=== PATIENT | female | born 1975 | race Caucasian/White ===

== ENCOUNTER 2020-09-16 10:46 | Outpatient (REF) | payer MEDICAID, SELFPAY ==
--- NOTE | ~2020-09-16 | MM_ITS ---
EXAMINATION: MM SCREENING DIGITAL BREAST TOMOSYNTHESIS, BILATERAL CLINICAL INFORMATION: Screening. Asymptomatic. The lifetime risk of breast cancer based on the Tyrer-Cuzick Model is 11%. COMPARISON: Mammography: 10/06/2017, 09/29/2016, 03/25/2016, 03/17/2016 (baseline); bilateral targeted breast ultrasound 03/25/2016 TECHNIQUE: Digital breast tomosynthesis is performed in both the craniocaudal and mediolateral oblique views along with computer-aided detection (CAD). Synthesized 2D images are generated from the tomosynthesis. FINDINGS: There are scattered areas of fibroglandular density (ACR BI-RADS breast composition Category b). There are no significant masses, abnormal calcifications, or other abnormalities. There are scattered asymmetries similar to decreased from prior exams. There is no developing density or interval mass or architectural abnormality. Scattered bilateral calcifications are again seen, most are dermal. No significant changes from prior studies. MM/MM tomosynthesis screening BI IMPRESSION: No mammographic evidence of malignancy. ASSESSMENT: BI-RADS 2: Benign RECOMMENDATION: Routine annual mammography screening. This patient's information was entered into a reminder system with a target due date for their next mammogram.
== END 2020-09-16 10:47 | disposition home or self-care (01) ==
LOC: HO.MAMMO 10:46
PROVIDERS: Visit Provider Family Medicine
DX: Z12.31 Encounter for screening mammogram for malignant neoplasm of breast (principal)
CPT/HCPCS: 77063; 77067

== ENCOUNTER 2020-11-20 10:39 | Outpatient (REF) | payer MEDICAID, SELFPAY ==
--- NOTE | 2020-11-20 10:42 | EMG_ITS ---
This is a 45-year-old generally healthy woman, who has left wrist pain for a few months. She is taking ibuprofen for it. No other medical problems. PHYSICAL EXAMINATION: NEUROLOGICAL EXAMINATION: Cranial nerves are normal. Muscle tone and strength are normal. Deep tendon reflexes symmetrical. No Tinel or Phalen sign. IMPRESSION: Rule out carpal tunnel syndrome. Nerve conduction EMG study: Normal electrodiagnostic study of the left upper extremity with no evidence of carpal tunnel syndrome or nerve entrapment. Normal EMG of the left C5-T1 innervated muscles. MD SCOTTY Rangel/NATO / [id number]
== END 2020-11-20 10:40 | disposition home or self-care (01) ==
LOC: HO.NEURO 10:39
PROVIDERS: Visit Provider Nurse Practitioner
DX: G56.02 Carpal tunnel syndrome, left upper limb (principal)
CPT/HCPCS: 95885; 95910

== ENCOUNTER 2020-12-17 11:37 | Outpatient (REF) | payer MEDICAID, SELFPAY ==
--- NOTE | ~2020-12-17 | XR_ITS ---
EXAMINATION: XR LUMBOSACRAL SPINE WITH OBLIQUES CLINICAL INFORMATION: Lower back pain. COMPARISON: Lumbar spine radiographs dated 06/18/2014 TECHNIQUE: AP, lateral, coned-down, and bilateral oblique views of the lumbosacral spine. FINDINGS: Normal vertebral body alignment. The lumbar lordosis is maintained. No acute fracture or subluxation. No loss of vertebral body height. Mild multilevel loss of intervertebral disc height with tiny anterior endplate osteophytes, slightly progressed when compared to the prior examination. Mild bilateral facet arthropathy at L5-S1, new when compared to the prior examination. Phleboliths within the pelvis. XR/XR lumbar spine 4V min IMPRESSION: Mild multilevel degenerative disc disease with bilateral facet arthropathy at L5-S1, new/increased when compared to the prior examination.
== END 2020-12-17 11:38 | disposition home or self-care (01) ==
LOC: HO.XRAY 11:37
PROVIDERS: Absent Provider Family Medicine; PCP Family Medicine; Visit Provider Emergency Medicine
DX: M54.5 Low back pain (principal)
CPT/HCPCS: 72110

== ENCOUNTER 2022-03-17 13:18 | Outpatient (REF) | payer MEDICAID, SELFPAY ==
[2022-03-17 13:26] LABS: MANUAL DIFF FLAG NO
[2022-03-17 14:17] LABS: Basophils Percent Auto 0.4 % (0-2); Eosinophils Absolute Auto 0.1 X10*3/uL (0.0-0.4); Eosinophils Percent Auto 0.7 % (0-4); Hematocrit 39.5 % (37.0-47.0); Hemoglobin 13.1 g/dl (12.0-16.0); Imm Gran Abs Auto 0.01 X10*3/uL (0.00-0.03); Imm Gran Pct Auto 0.1 % (0.0-0.4); Lymphocytes Absolute Auto 1.9 X10*3/uL (1.2-4.9); Lymphocytes Percent Auto 29.1 % (20-40); Mean Corpuscular HGB Conc 33.2 g/dl (31.0-35.0); Mean Corpuscular Hemoglobin 31.5 pg (27.0-33.0); Mean Platelet Volume 10.7 fL (9.4-12.3); Monocytes Absolute Auto 0.5 X10*3/uL (0.1-1.2); Monocytes Percent Auto 6.7 % (2-11); Neutrophils Absolute Auto 4.2 x10*3/uL (2.0-8.3); Platelet Count 258 X10*3/uL (160-400); Red Blood Count 4.16 X10*6/uL (4.20-5.50); Red Cell Distribution Width 12.8 % (11.0-16.0); White Blood Count 6.7 X10*3/uL (4.8-10.8)
[2022-03-17 14:36] LABS: Alanine Aminotransferase 19 U/L (0-31); Albumin Level 4.4 g/dL (3.5-5.0); Alkaline Phosphatase 79 U/L (39-117); Anion Gap 14 (12-20); Aspartate Amino Transferase 22 U/L (5-31); Bilirubin Total 0.2 mg/dL (0.0-1.0); Blood Urea Nitrogen 9 mg/dL (9-16); Calcium 9.8 mg/dL (8.4-10.2); Carbon Dioxide 25 mmol/L (22-29); Chloride 105 mmol/L (96-108); Estimated Glomerular Filt Rate > 60; Glucose Random 87 mg/dL (60-115); Potassium 4.7 mmol/L (3.3-5.1); Sodium 139 mmol/L (135-145); Total Protein 7.6 g/dL (6.5-8.0)
== END 2022-03-17 13:19 | disposition home or self-care (01) ==
LOC: HO.LAB 13:18
PROVIDERS: PCP Family Medicine; Visit Provider Nurse Practitioner
DX: Z01.818 Encounter for other preprocedural examination (principal); K21.9 Gastro-esophageal reflux disease without esophagitis; K64.9 Unspecified hemorrhoids; F41.8 Other specified anxiety disorders; K58.9 Irritable bowel syndrome, unspecified; J30.9 Allergic rhinitis, unspecified; F17.200 Nicotine dependence, unspecified, uncomplicated
CPT/HCPCS: 36415; 80053; 85025; 99202

== ENCOUNTER 2022-10-30 12:50 | Day surgery (SDC) | payer MEDICAID, SELFPAY ==
--- NOTE | 2022-10-29 10:39 | HO.ANESPROP2 ---
Documented by User: Pily Patton NP 10/29/22 10:39 HPI - Anesthesia Eval Consult details Narrative: 47yo F for Colonoscopy PMFSH Active Problems Active Problems: All Active Problems (Updated 10/28/22 @ 08:08 by Coretta Vargas, RN) Asthma (Acute) Allergic rhinitis (Acute) Smoker (Acute) GERD (gastroesophageal reflux disease) (Acute) IBS (irritable bowel syndrome) (Acute) Migraines (Acute) Cervical dysplasia (Acute) Chronic low back pain (Acute) Depression with anxiety (Acute) Carpal tunnel syndrome of left wrist (Acute) Hemorrhoids (Acute) Pre-op examination (Acute) Past Medical History Medical History (Updated 10/28/22 @ 08:08 by Coretta Vargas RN) Abnormal Pap smear of cervix Anxiety Back pain Chronic gastritis Depression GERD (gastroesophageal reflux disease) IBS (irritable bowel syndrome) Vitamin D deficiency Family History Family History Maternal Grandmother Liver cancer Maternal Uncle Throat cancer Surgical History Surgical History (Updated 10/28/22 @ 08:08 by Coretta Vargas RN) H/O hemorrhoidectomy Social History Social History Alcohol intake: never Patient Tobacco Use Status: Current everyday Tobacco user Tobacco use type: Cigarette Cigarette Packs Per Day: 5 Use of substances other than those prescribed or required for medical reasons: No Are you DNR?: No Advance Directives: No Advance Directives Information Provided: Yes Meds Allergies Allergy/AdvReac Type Severity Reaction Status Date / Time promethazine [From PHENERGAN] Allergy Severe FACIAL Verified 03/17/22 12:15 SWELLING metoclopramide Allergy Unknown neuro Verified 03/17/22 12:15 symptoms-face prochlorperazine Allergy Unknown memory loss Verified 03/17/22 12:15 chlorpheniramine [Phenagil] AdvReac Unknown upset Verified 03/17/22 12:15 stomach Home Medications Medication Instructions Recorded Confirmed Last Taken Type albuterol sulfate 90 mcg/actuation 2 puff inhalation Q4-6H PRN 03/17/22 10/28/22 Unknown History aerosol inhaler (ProAir HFA) Shortness Of Breath ascorbate calcium (vitamin C) 500 500 mg PO DAILY 03/17/22 10/28/22 10/29/22 History mg tablet blood pressure test kit-large #1 ea 03/17/22 Unknown History cholecalciferol (vitamin D3) 25 25 mcg PO DAILY 03/17/22 10/28/22 10/29/22 History mcg (1,000 unit) capsule (Vitamin D3) ferrous sulfate 325 mg (65 mg 325 mg PO BID 03/17/22 10/28/22 10/29/22 History iron) tablet (FeroSul) folic acid 800 mcg tablet 0.8 mg PO DAILY 03/17/22 10/28/22 10/29/22 History ibuprofen 600 mg tablet 600 mg PO TID low back pain 03/17/22 10/30/22 10/01/22 History omeprazole 20 mg capsule,delayed 20 mg PO DAILY PRN Acid Reflux 03/17/22 10/28/22 10/29/22 History release Exam Exam Date and Time: October 29, 2022 103 Assessment and Plan Assessment Anesthesia Assessment: Chart Reviewed Documented by User: Elizabeth Sanders MD 10/30/22 15:00 [facility] Past Medical History Medical History (Updated 10/28/22 @ 08:08 by Coretta Vargas RN) Abnormal Pap smear of cervix Anxiety Back pain Chronic gastritis Depression GERD (gastroesophageal reflux disease) IBS (irritable bowel syndrome) Vitamin D deficiency Family History Family History Maternal Grandmother Liver cancer Maternal Uncle Throat cancer Family history of problems with anesthesia: No Surgical History Surgical History (Updated 10/28/22 @ 08:08 by Coretta Vargas, RN) H/O hemorrhoidectomy History of Problems with Anesthesia: No Social History Social History Alcohol intake: never Patient Tobacco Use Status: Current everyday Tobacco user Tobacco use type: Cigarette Cigarette Packs Per Day: 5 Use of substances other than those prescribed or required for medical reasons: No Are you DNR?: No Advance Directives: No Advance Directives Information Provided: Yes Meds Allergies Allergy/AdvReac Type Severity Reaction Status Date / Time promethazine [From PHENERGAN] Allergy Severe FACIAL Verified 03/17/22 12:15 SWELLING metoclopramide Allergy Unknown neuro Verified 03/17/22 12:15 symptoms-face prochlorperazine Allergy Unknown memory loss Verified 03/17/22 12:15 chlorpheniramine [Phenagil] AdvReac Unknown upset Verified 03/17/22 12:15 stomach Home Medications Medication Instructions Recorded Confirmed Last Taken Type albuterol sulfate 90 mcg/actuation 2 puff inhalation Q4-6H PRN 03/17/22 10/28/22 Unknown History aerosol inhaler (ProAir HFA) Shortness Of Breath ascorbate calcium (vitamin C) 500 500 mg PO DAILY 03/17/22 10/28/22 10/29/22 History mg tablet blood pressure test kit-large #1 ea 03/17/22 Unknown History cholecalciferol (vitamin D3) 25 25 mcg PO DAILY 03/17/22 10/28/22 10/29/22 History mcg (1,000 unit) capsule (Vitamin D3) ferrous sulfate 325 mg (65 mg 325 mg PO BID 03/17/22 10/28/22 10/29/22 History iron) tablet (FeroSul) folic acid 800 mcg tablet 0.8 mg PO DAILY 03/17/22 10/28/22 10/29/22 History ibuprofen 600 mg tablet 600 mg PO TID low back pain 03/17/22 10/30/22 10/01/22 History omeprazole 20 mg capsule,delayed 20 mg PO DAILY PRN Acid Reflux 03/17/22 10/28/22 10/29/22 History release Exam Airway Mallampati Class: II TM Dist: >3cm Neck ROM: Full Loose/Missing/Broken Teeth: No Heart: rr Lungs: cta Assessment and Plan Final Anesthetic Review Family History of Problems with Anesthesia: No History of Problems with Anesthesia: No NPO: Yes ASA Class: II Final Preanesthetic Review: No Changes in Pt Med Stat, Meds/Allgs Chart Reviewed, Consent Obtained/Reviewed and Anes Risks/Benef Reviewed Patient Risk: Low Procedure Risk: Low Anesthetic Plan Anesthetic Plan: MAC: Disposition: Standard PACU
[2022-10-30 13:45] VITALS: BP 127/68; PULSE 80; RESP 16; TEMP 36.6; O2SAT 100; BMI 27.4
[2022-10-30] MEDS: Lactated Ringers 1,000 ML 100 ML IVCONT (14:08)
[2022-10-30 14:12] LABS: UPreg QC Valid YES; Urine Pregnancy NEGATIVE (NEGATIVE)
--- NOTE | 2022-10-30 14:26 | MHC.SHP ---
Pre-Procedural Eval Section A Date of Service: 10/30/22 The patient is an INPATIENT: No The History & Physical has been completed within 30 days and I have reviewed it.: No Section B Chief Complaint: screening Relevant Family History (Specify if Yes): Yes Relevant Social History: Tobacco Use Present Medications: see Short Stay Collaborative assessment Medical History: Significant History (Asthma Allergic rhinitis Smoker GERD IBS MIGRAINES Cervical dysplasia Chronic low back pain Depression/anxiety Carpal tunnel syndrome left wrist) History of Previous Operations: Relevant previous surgery/procedure and date(s) (Hemorrhoidectomy EGD) Allergies: Allergies Allergy/AdvReac Type Severity Reaction Status Date / Time promethazine [From PHENERGAN] Allergy Severe FACIAL Verified 03/17/22 12:15 SWELLING metoclopramide Allergy Unknown neuro Verified 03/17/22 12:15 symptoms-face prochlorperazine Allergy Unknown memory loss Verified 03/17/22 12:15 chlorpheniramine [Phenagil] AdvReac Unknown upset Verified 03/17/22 12:15 stomach Review of Systems Sugical H&P ROS: Negative: Constitution, Cardiovascular, Respiratory and Gastrointestinal Exam Surgical H&P Exam: Normal: Heart, Normal: Lungs, Normal: Extremities and Normal: Abdomen Plan Diagnosis/Plan: Unchanged I have reviewed the history and physical and performed a pertinent physical examination on my patient. No changes have occurred unless specified. Time Spent With Patient Time: Total time managing care of this patient today ____ minutes.
--- NOTE | 2022-10-30 15:19 | W.PM.OPN ---
Operative Note Operative Note Date of Service: 10/30/22 Narrative: COLONOSCOPY TILL CECUM WITH SNARE POLYPECTOMY AND SUBMUCOSAL INJECTION Pre-op diagnosis: colon cancer screening Post-op diagnosis:? colon polyp, diverticulosis, hemorrhoids Endoscopist:? Coleman Juarez MD Anesthesia:?MAC Consent: Indications for the procedure and potential complications of bleeding, perforation, reaction to medications and missed diagnosis were discussed with the patient and informed consent was obtained. Instrument: Olympus PCF H 190 L variable stiffness pediatric colonoscope Monitoring: Vital signs and clinical assessment, intermittent blood pressure monitoring, continuous EKG monitoring, Pulse oximetry and Carbon Dioxide monitoring were done throughout the procedure. Please see anesthesia flowsheet. Colon withdrawl time was 23 minutes. Procedure: The patient was placed in the left lateral decubitis position and pre-procedure medications were administered. After a digital rectal examination of the ano-rectum, the video colonoscope was inserted into the rectum and advanced through the colon to the cecum. The colonoscope was slowly withdrawn in a retrograde panoramic fashion and the colon mucosa was carefully examined including a retroflexed view of the rectum. Findings and interventions are described below. Procedure Difficulty: Without difficulty Findings: Terminal Ileum: Not evaluated Cecum: Normal Ascending Colon: Normal Transverse Colon: Normal Descending Colon: Normal Sigmoid Colon: A 2.5 cms pedunculated polyp at 22 cms. Polyp was removed with hot snare and marked by Noemí ink. Mild diverticulosis Rectum: Normal Ano-rectum: Small internal hemorrhoids Colon preparation: Excellent Impression and Post Procedure Diagnosis: Colonoscopy Findings: One large polyp removed Mild diverticulosis seen in the sigmoid colon Small hemorrhoids on retroflexed exam. Plan: Await pathology results Patient has an appointment on 11/10/22 in the GI Clinic with Fanta Osuna NP. Repeat Colonoscopy interval based on path results - in 3 years if polyps are adenomatous and 10 years if polyps are hyperplastic. If path on sigmoid colon polyp reveals advanced histology, then flex sig with colon prep in 3-4 months Above findings were reviewed with the patient and colon polyps and diverticulosis handouts were given in the discharge area BIOPSIES SHOWED: Colon, sigmoid at 22 cm, polyp:? Tubular adenoma, completely excised; negative for high-grade dysplasia and carcinoma.
[2022-10-30 16:18] VITALS: BP 86/50; PULSE 71; RESP 18; TEMP 36.6; O2SAT 98
[2022-10-30 16:33] VITALS: BP 94/38; PULSE 63; RESP 18; O2SAT 98
[2022-10-30 16:46] VITALS: BP 105/75; PULSE 75; RESP 18; O2SAT 98
[2022-10-30 16:51] VITALS: TEMP 36.6
== END 2022-10-30 17:40 | disposition home or self-care (01) ==
PROVIDERS: Nurse Practitioner; PCP Family Medicine; Visit Provider Internal Medicine Gastroenterology
PROC: 0DJD8ZZ Inspection of Lower Intestinal Tract, Via Natural or Artificial Opening Endoscopic (ICD-10-PCS; CPT 45378; principal; 2022-10-30 14:30)
DX: Z12.11 Encounter for screening for malignant neoplasm of colon (principal); D12.5 Benign neoplasm of sigmoid colon; K57.30 Diverticulosis of large intestine without perforation or abscess without bleeding; K64.8 Other hemorrhoids; K58.9 Irritable bowel syndrome, unspecified; K21.9 Gastro-esophageal reflux disease without esophagitis; J45.909 Unspecified asthma, uncomplicated; F41.8 Other specified anxiety disorders; Z79.899 Other long term (current) drug therapy; Z88.8 Allergy status to other drugs, medicaments and biological substances; F17.210 Nicotine dependence, cigarettes, uncomplicated
CPT/HCPCS: 45385; 45381; 81025; 88305

== ENCOUNTER → 2022-10-30 12:50 | Outpatient (BNV) | payer MEDICAID, SELFPAY | PROVIDERS: PCP Family Medicine; Visit Provider Internal Medicine Gastroenterology | DX: Z12.11 Encounter for screening for malignant neoplasm of colon (principal); K57.30 Diverticulosis of large intestine without perforation or abscess without bleeding; K64.8 Other hemorrhoids; D12.5 Benign neoplasm of sigmoid colon | CPT/HCPCS: 45381; 45385 ==

== ENCOUNTER 2022-11-10 10:51 | Outpatient (AMB) | payer MEDICAID, SELFPAY ==
--- NOTE | 2022-11-10 11:00 | A.OFFVIS_ITS ---
Intake Vital Signs 11/10/22 11:16 Height 5 ft 1 in Weight 130 lb 1.164 oz BMI 24.6 BP 118/80 Blood Pressure Location Lt brachial Position Sitting Pulse 94 Intake Visit Reasons: S/p colon- Larry Intake Note: Lucas presents in the office as a follow up colonoscopy. CC: Just here for the results of the procedure. 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 No bowel or upper GI problems except her usual IBS and GERD. There are no prior problems with anesthesia or sedation. Her asthma is well controlled and she denies any cardiac problems. No ID problems. No known FHX of CRC or polyps. (2) Hemorrhoids: ?Code(s): K64.9 - Unspecified hemorrhoids (3) Carpal tunnel syndrome of left wrist: ?Code(s): G56.02 - Carpal tunnel syndrome, left upper limb (4) Depression with anxiety: ?Code(s): F41.8 - Other specified anxiety disorders (5) Chronic low back pain: ?Code(s): M54.50 - Low back pain, unspecified; G89.29 - Other chronic pain (6) Cervical dysplasia: ?Code(s): N87.9 - Dysplasia of cervix uteri, unspecified (7) Migraines: ?Code(s): G43.909 - Migraine, unspecified, not intractable, without status migrainosus (8) IBS (irritable bowel syndrome): ?Code(s): K58.9 - Irritable bowel syndrome without diarrhea (9) Smoker: ?Code(s): F17.200 - Nicotine dependence, unspecified, uncomplicated (10) Allergic rhinitis: ?Code(s): J30.9 - Allergic rhinitis, unspecified (11) Asthma: ?Code(s): J45.909 - Unspecified asthma, uncomplicated (12) GERD (gastroesophageal reflux disease): ?Code(s): K21.9 - Gastro-esophageal reflux disease without esophagitis ? ? ? Orders: Orders Comprehensive Met. Panel 03/17/22 Z01.818 - Encounte r for other prepro cedural examinatio n ? Complete Blood Cou nt Auto Diff 03/17/22 Z01.818 - Encounte r for other prepro cedural examinatio n ? Medications: New peg 3350-electroly genoveva 236-22.74-6.74 -5.86 gram (Golyt deedee) ?? until feca l effluent is jarrett r; do not exceed a total volume of 2 ,000 mL 240 mL? PO Q10M 1 day 4,000 mL 0RF Z12.11 - Encounter for screening for malignant neoplas m of colon LABS not obtained COLONOSCOPY 11/02/22 Findings: Terminal Ileum: Not evaluated Cecum:? Normal Ascending Colon:? Normal Transverse Colon:? Normal Descending Colon:? Normal Sigmoid Colon:? A 2.5 cms pedunculated polyp at 22 cms. Polyp was removed with hot snare and marked by Noemí ink. Mild diverticulosis Rectum:? Normal Ano-rectum:? Small internal hemorrhoids Colon preparation: Excellent ? Impression and Post Procedure Diagnosis: Colonoscopy Findings: One large polyp removed Mild diverticulosis seen in the sigmoid colon Small hemorrhoids on retroflexed exam. Plan: Await pathology results Patient has an appointment on 11/10/22 in the GI Clinic with? Fanta Osuna NP. Repeat Colonoscopy interval based on path results - in 3 years if polyps are adenomatous and 10 years if polyps are hyperplastic.? If path on sigmoid colon polyp reveals advanced histology, then flex sig with colon prep in 3-4 months BIOPSY Received: 11/02/22 Diagnosis Colon, sigmoid at 22 cm, polyp:? Tubular adenoma, completely excised; negative for high-grade dysplasia and carcinoma. TODAY'S VISIT She is agreeable to the 3 year follow up. The procedure was well tolerated. The results were explained and the patient is agreeable to the follow-up interval as stated. The bowel pattern has returned to normal. Education was provided to tell any 1st degree relatives about their findings to be sure that they are screened by age 45. Educated that they will be put on a recall list when it is time for their repeat scope but should they move out of state or away from the hospital they will need to remember along with their primary to repeat the procedure in a timely fashion to avoid any adverse complications. prn [facility] Medical History (Updated 11/20/22 @ 16:38 by OKSANA Peterson) Abnormal Pap smear of cervix Anxiety Back pain Chronic gastritis Depression GERD (gastroesophageal reflux disease) IBS (irritable bowel syndrome) Vitamin D deficiency Surgical History (Updated 11/10/22 @ 11:16 by ANGELINA Hyde) H/O hemorrhoidectomy History of esophagogastroduodenoscopy (EGD) Hx of colonoscopy Family History Maternal Grandmother Liver cancer Maternal Uncle Throat cancer Social History Alcohol intake: never Patient Tobacco Use Status: Current everyday Tobacco user Tobacco use type: Cigarette Cigarette Packs Per Day: 5 Review of Systems Const Denies fatigue, Denies fever(s), Denies night sweats, Denies poor appetite and Denies weight loss ENT Reports Normal hearing present, Denies dental pain, Denies dysphagia, Denies hearing loss, Denies mouth pain, Denies odynophagia, Denies throat swelling, Denies tongue swelling and Reports other (Dentition adequate) Card Reports no additional complaints Resp Reports no additional complaints GI Denies abdominal pain, Denies melena, Denies bloating, Denies hematochezia, Denies constipation, Denies GI cramping, Denies dysphagia, Denies excessive flatus, Denies early satiety, Denies heartburn, Denies diarrhea, Denies nausea, Denies odynophagia, Denies vomiting and Denies hematemesis Skin/Breast Denies pruritus, Denies lesions, Denies rash and Denies jaundice Neuro Reports Normal hearing present and Denies Abnormal speech present Endo Denies fatigue Aller/Immun Denies throat swelling and Denies tongue swelling Physical Exam Vital Signs: Last Vital Signs Pulse 94 11/10/22 11:16 BP 118/80 11/10/22 11:16 BMI result Body Mass Index 24.6 Const General: cooperative, no acute distress, well developed and well groomed Nutritional Appearance: average body habitus and well nourished Orientation/consciousness: oriented to person, oriented to place and oriented to time Limitations: No language barrier HEENT Head: Yes normocephalic and Yes atraumatic Eyes General: appearance normal, both eyes and all related structures Pupils: Equal, round and reactive pupils present Neck Neck: Yes normal visual inspection and Yes no lymphadenopathy Thyroid: Thyroid normal Resp Effort & Inspection: normal respiratory effort and able to speak in complete sentences Auscultation: clear to auscultation bilaterally Cardio Rate: regular rate Rhythm: regular rhythm Heart sounds: Normal, physiologic split S2 sound present Peripheral pulses: radial pulses present and posterior tibial pulses present GI Inspection: No distended and No Abdominal panniculus present Palpation (GI): Soft to palpation, nontender, no guarding, not rigid and No hepatosplenomegaly present Percussion: Yes normal to percussion Auscultation: normal bowel sounds Rectal Exam - Female: deferred Skin General skin exam: no rashes or lesions noted, turgor normal, skin not dry, no jaundice, No spider nevi and no striae Rashes: no rashes Nails: normal Neuro General: oriented to person, oriented to place and oriented to time Cranial nerves: Yes Equal, round and reactive pupils present and Yes Normal hearing present Speech: No Abnormal speech present Extrem General: Yes normal to inspection, No clubbing, No cyanosis and No edema Psych Appearance: grossly normal and well kempt Mental Status: mental status grossly normal Speech and movement: Normal speech and movement present Affect: normal affect Attitude: cooperative Thought process: Normal thought process present and not confabulating Thought content: Normal thought content present Insight: Fair insight present (Psych) Judgement: Fair judgement present (Psych) Assessment & Plan Assessment & Plan (1) Tubular adenoma of colon: Comment: 2022 scope equals TA repeat in 3 years Code(s): D12.6 - Benign neoplasm of colon, unspecified Plan: She is agreeable to the 3 year follow up. The procedure was well tolerated. The results were explained and the patient is agreeable to the follow-up interval as stated. The bowel pattern has returned to normal. Education was provided to tell any 1st degree relatives about their findings to be sure that they are screened by age 45. Educated that they will be put on a recall list when it is time for their repeat scope but should they move out of state or away from the hospital they will need to remember along with their primary to repeat the procedure in a timely fashion to avoid any adverse complications. prn (2) GERD (gastroesophageal reflux disease): Code(s): K21.9 - Gastro-esophageal reflux disease without esophagitis (3) IBS (irritable bowel syndrome): Code(s): K58.9 - Irritable bowel syndrome without diarrhea Coding Level of Care Code Est Pt Level 3 (23984) Diagnoses Tubular adenoma of colon D12.6 GERD (gastroesophageal reflux disease) K21.9 IBS (irritable bowel syndrome) K58.9
[2022-11-10 11:16] VITALS: BP 118/80; PULSE 94; BMI 24.6
== END 2022-11-10 11:53 | disposition home or self-care (01) ==
PROVIDERS: PCP Family Medicine; Visit Provider Nurse Practitioner
DX: D12.6 Benign neoplasm of colon, unspecified (principal); K21.9 Gastro-esophageal reflux disease without esophagitis; K58.9 Irritable bowel syndrome, unspecified
CPT/HCPCS: 99213

== ENCOUNTER → 2022-11-10 10:51 | Outpatient (BNVA) | payer MEDICAID, SELFPAY | PROVIDERS: PCP Family Medicine; Visit Provider Nurse Practitioner | DX: D12.5 Benign neoplasm of sigmoid colon (principal); K21.9 Gastro-esophageal reflux disease without esophagitis; K58.9 Irritable bowel syndrome, unspecified; Z98.890 Other specified postprocedural states | CPT/HCPCS: 99213 ==

== ENCOUNTER 2024-09-26 10:44 | Outpatient (REF) | payer MEDICAID, SELFPAY ==
[2024-09-26 11:53] LABS: MANUAL DIFF FLAG NO
[2024-09-26 12:23] LABS: Basophils Percent Auto 0.6 % (0-2); Eosinophils Percent Auto 0.6 % (0-4); Hematocrit 36.3 % (37.0-47.0); Hemoglobin 11.7 g/dl (12.0-16.0); Imm Gran Abs Auto 0.02 X10*3/uL (0.00-0.03); Imm Gran Pct Auto 0.4 % (0.0-0.4); Lymphocytes Absolute Auto 1.5 X10*3/uL (1.2-4.9); Lymphocytes Percent Auto 29.9 % (20-40); Mean Corpuscular HGB Conc 32.2 g/dl (31.0-35.0); Mean Corpuscular Hemoglobin 28.5 pg (27.0-33.0); Mean Corpuscular Volume 88.5 fL (80.0-98.0); Mean Platelet Volume 11.2 fL (9.4-12.3); Monocytes Absolute Auto 0.4 X10*3/uL (0.1-1.2); Monocytes Percent Auto 7.8 % (2-11); Neutrophils Absolute Auto 3.1 x10*3/uL (2.0-8.3); Neutrophils Percent Auto 60.7 % (45-73); Platelet Count 259 X10*3/uL (160-400); Red Cell Distribution Width 15.4 % (11.0-16.0); White Blood Count 5.1 X10*3/uL (4.8-10.8)
[2024-09-26 12:48] LABS: Alanine Aminotransferase 22 U/L (0-31); Albumin Level 4.4 g/dL (3.5-5.0); Alkaline Phosphatase 70 U/L (39-117); Anion Gap 11 (12-20); Aspartate Amino Transferase 28 U/L (5-31); Bilirubin Total 0.2 mg/dL (0.0-1.0); Blood Urea Nitrogen 12 mg/dL (9-16); Calcium 9.4 mg/dL (8.4-10.2); Carbon Dioxide 24 mmol/L (22-29); Chloride 107 mmol/L (96-108); Estimated Glomerular Filt Rate > 60; Glucose Random 88 mg/dL (60-115); Sodium 138 mmol/L (135-145); Total Protein 7.6 g/dL (6.5-8.0)
== END 2024-09-26 10:45 | disposition home or self-care (01) ==
LOC: HO.LAB 10:44
PROVIDERS: PCP Family Medicine; Visit Provider Nurse Practitioner
DX: K21.9 Gastro-esophageal reflux disease without esophagitis (principal); R10.10 Upper abdominal pain, unspecified; K59.00 Constipation, unspecified
CPT/HCPCS: 36415; 80053; 85025; 99212

== ENCOUNTER 2024-09-26 10:44 | Outpatient (AMB) | payer MEDICAID, SELFPAY ==
--- NOTE | 2024-09-26 10:48 | A.OFFVIS_ITS ---
Vital Signs 09/26/24 10:59 Height 5 ft 1 in Weight 121 lb 4.068 oz BMI 22.9 BP 134/82 Blood Pressure Location Lt brachial Position Sitting Pulse 89 Intake Visit Reasons: gerd Intake Note: Lucas presents in the office for GERD. CC: She states that she is having burning in her stomach. She states that she has had constipation but now she has a BM every two days. Freezer Person Required: No Allergies promethazine [From [facility]] Allergy (Severe, Verified 09/26/24 10:59) FACIAL SWELLING metoclopramide Allergy (Unknown, Verified 09/26/24 10:59) neuro symptoms-face prochlorperazine Allergy (Unknown, Verified 09/26/24 10:59) memory loss chlorpheniramine [Phenagil] Adverse Reaction (Unknown, Verified 09/26/24 10:59) upset stomach HPI HPI gerd: Details: 49-year-old female seen in the past only for screening colonoscopy here for initial evaluation of GERD. PMX Asthma Allergic rhinitis Smoker GERD IBS MIGRAINES Cervical dysplasia Chronic low back pain Depression/anxiety Carpal tunnel syndrome left wrist History of hemorrhoids * SURGICAL HISTORY Hemorrhoidectomy EGD * ALLERGIES. Clarithromycin Reglan Prochlorperazine * [facility]: NONE SINCE 2021 TODAY'S VISIT SHE HAD AN EGD [place] [address] DUDLEY that showed a hiatal hernia of undetermined size saw me know barium swallow record had that time it was for intractable GERD. She has been having problems with gastric to epigastric pain for the past 3 weeks, of sudden onset. This is accompanied by worsening heartburn and generalized dyspepsia and some. Abdominal discomfort as well. She feels that she is moving her bowels sufficiently although she does have occasional constipation. This could be contributing to her symptoms so I recommend that she try taking some milk of magnesia every night to get her bowel motility restored. She is agreeable to this. She denies any new medications or change in current dosing it could be affecting this or any severe diet changes. She has had this problem off and on over the years, she had been taking [id number] omeprazole so will try her on pantoprazole to give her some relief until we can get some testing in see if there is any reason to suspect H pylori, gallbladder disease, or other contributing pathologies. Roberto sullivan [facility] Medical History Abnormal Pap smear of cervix Chronic gastritis Anxiety Depression IBS (irritable bowel syndrome) Vitamin D deficiency Back pain GERD (gastroesophageal reflux disease) Surgical History History of esophagogastroduodenoscopy (EGD) Hx of colonoscopy H/O hemorrhoidectomy Family History Maternal Grandmother Liver cancer Maternal Uncle Throat cancer Social History Alcohol intake: never Patient Tobacco Use Status: Current everyday Tobacco user Tobacco use type: Cigarette Cigarette Packs Per Day: 5 Review of Systems Const Denies fatigue, Denies fever(s), Denies night sweats, Denies poor appetite and Reports weight loss (About 10 lb she attributes to being more active) ENT Reports Normal hearing present, Denies dental pain, Denies dysphagia, Denies hearing loss, Denies mouth pain, Denies odynophagia, Denies throat swelling, Denies tongue swelling and Reports other (Dentition adequate) Card Reports no additional complaints Resp Reports no additional complaints GI Details: Denies abdominal pain, Denies melena, Denies bloating, Denies hematochezia, Reports constipation, Denies GI cramping, Denies dysphagia, Denies excessive flatus, Denies early satiety, Reports dyspepsia, Reports heartburn, Denies diarrhea, Denies nausea, Denies odynophagia, Denies vomiting and Denies hematemesis Skin/Breast Denies pruritus, Denies lesions, Denies rash and Denies jaundice Neuro Reports Normal hearing present and Denies Abnormal speech present Endo Denies fatigue Aller/Immun Denies throat swelling and Denies tongue swelling Physical Exam Vital Signs: Last Vital Signs Pulse 89 09/26/24 10:59 BP 134/82 09/26/24 10:59 BMI result Body Mass Index 22.9 Const General: cooperative, no acute distress, well developed and well groomed Nutritional Appearance: average body habitus and well nourished Orientation/consciousness: oriented to person, oriented to place and oriented to time Limitations: No language barrier HEENT Head: Yes normocephalic and Yes atraumatic Eyes General: appearance normal, both eyes and all related structures Pupils: Equal, round and reactive pupils present Neck Neck: Yes normal visual inspection and Yes no lymphadenopathy Thyroid: Thyroid normal Resp Effort & Inspection: normal respiratory effort and able to speak in complete sentences Auscultation: clear to auscultation bilaterally Cardio Rate: regular rate Rhythm: regular rhythm Heart sounds: Normal, physiologic split S2 sound present Peripheral pulses: radial pulses present and posterior tibial pulses present GI Inspection: No distended and No Abdominal panniculus present Palpation (GI): Soft to palpation, nontender, no guarding, not rigid and No hepatosplenomegaly present Percussion: Yes normal to percussion Auscultation: normal bowel sounds Rectal Exam - Female: deferred Skin General skin exam: no rashes or lesions noted, turgor normal, skin not dry, no jaundice, No spider nevi and no striae Rashes: no rashes Nails: normal Neuro General: oriented to person, oriented to place and oriented to time Cranial nerves: Yes Equal, round and reactive pupils present and Yes Normal hearing present Speech: No Abnormal speech present Extrem General: Yes normal to inspection, No clubbing, No cyanosis and No edema Psych Appearance: grossly normal and well kempt Mental Status: mental status grossly normal Speech and movement: Normal speech and movement present Affect: normal affect Attitude: cooperative Thought process: Normal thought process present and not confabulating Thought content: Normal thought content present Insight: Limited insight present (Psych) Judgement: Limited judgement present (Psych) Assessment & Plan Assessment & Plan (1) GERD (gastroesophageal reflux disease): Code(s): K21.9 - Gastro-esophageal reflux disease without esophagitis Category: Medical (2) Upper abdominal pain: Code(s): R10.10 - Upper abdominal pain, unspecified Category: Medical (3) Constipation: Code(s): K59.00 - Constipation, unspecified Category: Medical Plan SHE HAD AN EGD IN [address] DUDLEY that showed a hiatal hernia of undetermined size saw me know barium swallow record had that time it was for intractable GERD. She has been having problems with gastric to epigastric pain for the past 3 weeks, of sudden onset. This is accompanied by worsening heartburn and generalized dyspepsia and some. Abdominal discomfort as well. She feels that she is moving her bowels sufficiently although she does have occasional constipation. This could be contributing to her symptoms so I recommend that she try taking some milk of magnesia every night to get her bowel motility restored. She is agreeable to this. She denies any new medications or change in current dosing it could be affecting this or any severe diet changes. She has had this problem off and on over the years, she had been taking [id number] omeprazole so will try her on pantoprazole to give her some relief until we can get some testing in see if there is any reason to suspect H pylori, gallbladder disease, or other contributing pathologies. Next avil. Orders: Orders US abdomen complete Today K21.9 - Gastro-esophageal reflux disease without esophagitis, R10.10 - Upper abdominal pain, unspecified Comprehensive Met. Panel Today K21.9 - Gastro-esophageal reflux disease without esophagitis, R10.10 - Upper abdominal pain, unspecified H pylori Ag Stool Today K21.9 - Gastro-esophageal reflux disease without esophagitis, R10.10 - Upper abdominal pain, unspecified Complete Blood Count Auto Diff Today K21.9 - Gastro-esophageal reflux disease without esophagitis, R10.10 - Upper abdominal pain, unspecified [place] barium swallow Today K21.9 - Gastro-esophageal reflux disease without esophagitis, R10.10 - Upper abdominal pain, unspecified Medications: New famotidine (Pepcid) 40 mg PO BEDTIME 30 tabs 6RF K21.9 - Gastro-esophageal reflux disease without esophagitis, R10.10 - Upper abdominal pain, unspecified magnesium hydroxide (Milk of Magnesia) 10 mL PO BEDTIME 3,780 mL 6RF K59.00 - Constipation, unspecified Coding Level of Care Code Est Pt Level 4 (77252) Diagnoses GERD (gastroesophageal reflux disease) K21.9 Upper abdominal pain R10.10 Constipation K59.00 Time Spent (min) 35
[2024-09-26 10:59] VITALS: BP 134/82; PULSE 89; BMI 22.9
--- OUTSIDE RECORDS SUMMARY | 2024-09-26 11:32 | XMS_ITS | Clinical Summary ---
Author Organization [employer] Address [address] [place] [address] [address] [place] [address] Care Team Providers Care Advice Nurse Name Role Phone Juany Hicks MD Primary Care Provider Allergies Active Allergy Reactions Criticality Noted Date Comments Clarithromycin 07/16/2010 Other reaction(s): unspecified Metoclopramide 06/14/2012 Other reaction(s): palpitation, facial numbness Prochlorperazine 06/13/2012 Promethazine 11/22/2023 Medications ascorbic acid (Vitamin C) 500 MG tablet take 1 by Oral route 2 times every day 12/17/19 22 Active cholecalciferol (Vitamin D-3) 25 MCG (1000 UT) capsule take 1 by Oral route every day 12/17/19 22 Active ferrous sulfate 325 (65 Fe) MG tablet take 1 Tablet by Oral route 2 times every day 12/17/19 22 Active fluticasone (Flonase) 50 MCG/ACT nasal spray spray 1 - 2 spray by intranasal route every day in each nostril as needed 01/31/20 22 Active folic acid (Folvite) 800 MCG tablet take 1 tablet by oral route every day 12/17/19 22 Active nicotine (Nicoderm, Step 3) 7 MG/24HR patch apply 1 patch by transdermal route every day 12/17/19 22 Active nicotine polacrilex (Nicorette) 2 MG gum chew 1 piece of gum by oral route every 2 hours as needed and as directed 12/17/19 22 Active omeprazole (PriLOSEC) [address] capsule take 1 capsule by oral route once daily as needed 12/17/19 22 Active SUMAtriptan (Imitrex) 25 MG tablet Take 1 tablet by mouth. 12/17/19 Active albuterol 108 (90 Base) MCG/ACT inhaler Inhale. Inhale 2 puffs by inhalation route every 4-5 hours as needed for difficulty breathing 4 times a day 03/17/20 Active Blood Pressure Monitoring (Omron 3 Series BP Monitor) device USE DIRECTED DAILY 02/06/20 Active montelukast (Singulair) 10 MG tabletIndications: Chronic rhinosinusitis Take 1 tablet (10 mg) by mouth at bedtime. 90 tablet 3 04/14/20 22 Active cetirizine (ZyrTEC) 10 MG tabletIndications: Chronic rhinosinusitis Take 1 tablet (10 mg) by mouth in the morning. 90 tablet 3 04/14/20 Active naproxen (Naprosyn) 500 MG tabletIndications: Acute bilateral low back pain, unspecified whether sciatica present Take 1 tablet (500 mg) by mouth if needed in the morning and at bedtime for mild pain. Take twice daily for 5 days with food, then as needed for pain. Do no take with ibuprofen/advil or aleve. 30 tablet 1 08/18/19 25 Active baclofen (Lioresal) 10 MG tablet Take 1 tablet (10 mg) by mouth if needed in the morning, at noon, and at bedtime for muscle spasms. 60 tablet 1 08/18/19 25 025 Active Diclofenac Sodium 1 % gel Apply 2 g topically if needed in the morning, at noon, in the evening, and at bedtime (pain). 150 g 1 08/18/19 25 Active acetaminophen (Tylenol 8 Hour) 650 MG ER tablet Take 1 tablet (650 mg) by mouth every 8 (eight) hours if needed for mild pain. Do not crush, chew, or split. 40 tablet 1 08/18/19 25 025 Active Problems Problem Noted Date Diagnosed Date Bruising 11/23/2023 Assessment & Plan (12/10/2023 9:19 AM EDT): Reassuring exam suggestive of superficial eccymosis,healing well, however pt does endorse hx of anemia which is primary concern today, Labs as ordered below Cocaine abuse 11/22/2023 Iron deficiency anemia 11/22/2023 Nondependent cannabis abuse 11/22/2023 Tobacco dependence syndrome 11/22/2023 Gastritis 11/22/2023 Acute exacerbation of chronic low back pain 09/01 Assessment & Plan (09/21/2023 6:57 PM EDT): Has DJD L-spine, reassurance, advised to avoid lifting weight, constant bending, may need to ask her brother for help with mother's care giving for at least 1w. Toradol injection today, can repeat 30mg IM/d x 5d max Naproxen + Flexeril x 1w then PRN Refer to PT and fu with PCP Anosmia 04/14/2022 Assessment & Plan (04/14/2022 5:32 PM EST): ?? Likely related to her sinus and nasal cavity ?? Resume cetirizine and montelukast for allergic rhinitis ?? Will order sinus CT ?? Will refer to ENT for further evaluation and management (may need allergy testing) ?? Work on smoking cessation. Ageusia 04/14/2022 Assessment & Plan (04/14/2022 5:34 PM EST): ?? Likely due to loss of smell sense ?? Evaluate for nasal problem ?? Work on smoking cessation ?? Review medication that may cause ageusia / dysgeusia Chronic rhinosinusitis 04/14/2022 Assessment & Plan (04/14/2022 5:39 PM EST): ?? Restart cetirizine and montelukast ?? Evaluate with sinus CT ?? Refer to ENT ?? Smoking cessation Palpitation 04/14/2022 Assessment & Plan (04/14/2022 5:46 PM EST): ?? Holter monitor on 01/06/22 predominantly NSR, rare supraventricular ectopy. ?? Reduce caffeine intake ?? Smoking cessation ?? Consider sleep study Carpal tunnel syndrome 04/03/2022 Tobacco user 04/03/2022 Assessment & Plan (04/14/2022 5:45 PM EST): ?? < 20 pack years ?? Continue working on lifestyle modifications ?? Lung cancer screening program in few years. Arthritis of facet joint of lumbar spine 021 Allergic rhinitis 06/18/2016 Chronic gastritis 06/18/2016 Mixed anxiety and depressive disorder 12/10/2015 Cervical intraepithelial swapna plasia grade III with severe dysplasia 09/13/2014 Assessment & Plan (04/14/2022 5:44 PM EST): ?? Followed by [facility] ?? Hx YOJANA-III ?? LEEP and Cone Bx in 2014 ?? Most recent PAP 09/18/20 NILM with negative high risk HPV Abnormal cervical Papanicolaou smear 08/27/2014 Anxiety 08/27/2014 Asthma 08/27/2014 Chronic back pain 08/27/2014 Backache 06/13/2012 Gastroesophageal reflux disease 03/23/2012 Irritable bowel syndrome 03/23/2012 Vitamin D deficiency 03/23/2012 Encounters Date Type Department Care Team Description 08/17/2024 10:00 AM EDT Office Visit [facility] [address] [place] [address] Betty Houser, Acute right-sided low back pain without sciatica (Primary Dx); Elevated BP without diagnosis of hypertension; Acute bilateral low back pain, unspecified whether sciatica present 07/14/2024 Population Health Risk Score [facility] () Department [address] [place] [id number] Provider, Population Health Generic from Last 3 Months Immunizations Immunization Administration Dates Next Due Influenza Injectable Quadriv alant Preservative Free IIV4 MDCK 03/22/2020 Influenza injectable quadriv alent IIV4 with preservative 04/14/2022,2019,01/31/2018,06/03,01/15/2015 Influenza injectable quadriv alent preservative free 06/04/2021,06/18/2016 Influenza, IIV3, injectable 02/04/2010 Influenza, Split (incl. jay fied surface antigen) 02/13/2013,03/23/2012 Moderna Covid-19 Vaccine 12+ 06/04/2021,05/07/19 22 Pneumococcal Polysaccharide PPSV23 06/13/2012 Tdap 11/05/2018,08/08/2010 Social History Tobacco Use Types Packs/Day Years Used Date Smoking Tobacco: Every Day Cigarettes Passive Smoke Exposure: Never Tobacco Cessation:Ready to Q uit: Not Asked; Counseling Given: Not Answered Alcohol Use Standard Drinks/Week Comments Never 0 (1 standard drink = 0.6 oz pur e alcohol) Comments Unknown Sex and Gender Information Value Date Recorded Sex Assigned at Female 03/02/2022 10:16 AM EDT Legal Sex Female 10:16 AM EDT Gender Identity Female 03/02/2022 10:16 AM EDT Sexual Orientation Straight 03/02/2022 10 :16 AM EDT Last Filed Vital Signs Vital Sign Reading Time Taken Comments Blood Pressure 144/82 08/17/2024 11:01 AM EDT Pulse 90 08/17/2024 11:01 AM EDT Temperature 36.6 ??C (97.9 ??F) 08/17/2024 10:10 AM E DT Respiratory Rate 18 08/17/2024 11:01 AM EDT Oxygen Saturation 100% 08/17/2024 11:01 AM EDT Inhaled Oxygen Concentration - - Weight 57.6 kg (127 lb) 08/17/2024 10:10 AM EDT Height 154.9 cm (5' 1 ) 11/23/2023 3:51 PM EDT Body Mass Index 24 11/23/2023 3:51 PM EDT Plan of Treatment Health Maintenance Due Date Last Done Comments CT Colonography 1976 Depression Screening 1976 FIT DNA/Cologuard 1976 FIT 1976 FOBT 1976 SDOH Screening 1976 Sigmoidoscopy 1976 Disability Screening 1976 Alcohol/Substance Use Screening 1988 Family Planning (PISQ) 02/05/1991 Hepatitis B Vaccines (1 of 3 - 19+ 3-dose series) 02/05/1995 Pneumococcal Vaccine: Pediatrics (0 to 5 Years) and At-Risk Patients (6 to 49) Years) (2 of 2 - PCV) 06/13/2013 06/13/2012 Mammogram 09/16/2022 09/16/2020, 10/06/2017 Pap Smear 09/19/2023 09/18/2020 COVID-19 Vaccine ( season) 2024 06/04/2021, 05/07/2021 Influenza Vaccine (#1) 2024 2, 06/04/2021, 03/22/2020, Additional history exists Lipid Panel 12/19/2024 12/20/2019 Tobacco Screening 08/17/2025 08/17/2024 Cervical Cancer Screening 09/18/2025 HPV/Cotest 09/18/2025 09/18/2020 Zoster Vaccines (1 of 2) 02/05/2026 Colonoscopy 10/31/2027 10/30/2022 Colorectal Cancer Screening 10/31/2027 DTaP/Tdap/Td Vaccines (3 - Td or Tdap) 11/05/2028 11/05/2018, 08/08/2010 RSV Patients and Patients Aged 60 years or older (1 - 1-dose 75+ series) 02/05/2051 HIV Screening Completed 12/20/2019 Hepatitis C Screening Completed 12/20/2019 HIB Vaccines Aged Out No longer eligi ble based on patient's age to complete this topic HPV Vaccines Aged Out No longer eligi ble based on patient's age to complete this topic Hepatitis A Vaccines Aged Out No long er eligible based on patient's age to complete this topic IPV Vaccines Aged Out No longer eligi ble based on patient's age to complete this topic Meningococcal B Vaccine Aged Out No l onger eligible based on patient's age to complete this topic Meningococcal Vaccine Aged Out No joyce lindsey eligible based on patient's age to complete this topic RSV under 20 months Aged Out No longe r eligible based on patient's age to complete this topic Rotavirus Vaccines Aged Out No longer eligible based on patient's age to complete this topic Procedures Procedure Name Priority Date/Time Associated Diagnosis Comments HM COLONOSCOPY Routine 10/30/2022 HPV GENOTYPES 16,18/45 Routine 09/18/2020 4:28 PM EDT THINPREP PAP Routine 09/18/2020 4:28 PM EDT MAMMOGRAM GENERIC Routine 09/16/2020 10: 30 AM EDT ZZZ HISTORICAL HEPATITIS C AB W/REFL TO HCV RNA, QN, PCR Routine 12/20/2019 11:23 AM EDT HIV 1/2 ANTIGEN/ANTIBODY, FOURTH GENERATION W/RFL Routine 12/20/2019 11:23 AM EDT LIPID PANEL, STANDARD Routine 12/20/2019 11:23 AM EDT from Last 3 Months or Most Recently Relevant to Health Maintenance Results * (ABNORMAL) Hm Colonoscopy (10/30/2022) Colonoscopy Normal Normal Comment:tubular adenoma 10/30/2022 Coleman Juarez MD HEALTH MAINTENANCE Final Result * THINPREP PAP (09/18/2020 4:28 PM EDT) Clinical Information: None given [facility] COMMENT SEE COMMENT [facility] Comment: EXPLANATORY NOTE: ? The Pap is a screening test for cervical cancer. It is ?? not a diagnostic test and is subject to false negative ?? and false positive results. It is most reliable when a ?? satisfactory sample, regularly obtained, is submitted ?? with relevant clinical findings and history, and when ?? the Pap result is evaluated along with historic and ?? current clinical information. ?? Senior Benefits Specialist : SEE COMMENT [facility] Comment: MXD, CT (ASCP) CT screening location: [address] ??[address] Infection Shift in vaginal aster suggestive of bacterial vaginosis. [facility] Interpretation/R esult: Negative for intraepithelial lesion or malignancy. [facility] LMP: NONE GIVEN [facility] Prev. BX: NONE GIVEN [facility] Prev. PAP: NONE GIVEN [facility] SOURCE: None given [facility] Statement Of Adequacy: SEE COMMENT [facility] Comment: Satisfactory for evaluation. Endocervical/transformation zone component absent. Age and/or menstrual status not provided 09/18/2020 4:28 PM EDT Paula Culp NP LAB PATHOLOGY ORDERABLES Final Result Performing Organization Address [facility] de Phone Number [facility] [address] * HPV GENOTYPES 16,18/45 (09/18/2020 4:28 PM EDT) HPV 16 RNA NOT DETECTED NOT DETECTED [facility] HPV 18/45 RNA NOT DETECTED NOT DETECTED [facility] Comment: Methodology: Tire Wrapper Mediated Amplification The analytical performance characteristics of this assay have been determined by [employer]. The modifications have not been cleared or approved by the FDA. This assay has been validated pursuant to the CLIA regulations and is used for clinical purposes. 09/18/2020 4:28 PM EDT Paula Culp NP LAB CYTOLOGY ORDERABLES Final R esult Performing Organization Address [facility] de Phone Number [facility] [address] * Mammography Report 1 (09/16/2020 10:30 AM EDT) Anatomical Region Laterality Modality Breast Bilateral Mammography 09/16/2020 10:3 0 AM EDT Narrative 09/17/2020 11:37 AM EDT Refer to the Notes tab for result details [facility] Procedure: Mammography Report 1 Procedure Note ProviderSarah MD - 07/25/2022 Refer to the Notes tab for result details [facility] Procedure: Mammography Report 1 Juany Hicks MD IMG BI PROCEDURES Final Result * HEPATITIS C AB W/REFL TO HCV RNA, QN, PCR (12/20/2019 11:23 AM EDT) Pathologist [facility] HEPATITIS C ANTIBODY NON-REACT DIAMOND NON-REACT DIAMOND [facility] INDEX 0.02 <1.00 [facility] Comment: ?? HCV antibody was non-reactive. There is no laboratory ?? evidence of HCV infection. ?? In most cases, no further action is required. However, if recent HCV exposure is suspected, a test for HCV RNA (test code 50575) is suggested. ?? For additional information please refer to http://[employer]/faq/BLB68c1 (This link is being provided for informational/ educational purposes only.) ?? HEPATITIS C ANTIBODY NON-REACT DIAMOND NON-REACT DIAMOND [facility] INDEX 0.02 <1.00 [facility] Comment: ?? HCV antibody was non-reactive. There is no laboratory ?? evidence of HCV infection. ?? In most cases, no further action is required. However, if recent HCV exposure is suspected, a test for HCV RNA (test code 11061) is suggested. ?? For additional information please refer to http://[employer]/faq/DHA62x8 (This link is being provided for informational/ educational purposes only.) ?? HEPATITIS C ANTIBODY NON-REACT DIAMOND NON-REACT DIAMOND [facility] INDEX 0.02 <1.00 [facility] Comment: ?? HCV antibody was non-reactive. There is no laboratory ?? evidence of HCV infection. ?? In most cases, no further action is required. However, if recent HCV exposure is suspected, a test for HCV RNA (test code 57856) is suggested. ?? For additional information please refer to http://[employer]/faq/AGQ60d7 (This link is being provided for informational/ educational purposes only.) ?? HEPATITIS C ANTIBODY NON-REACT DIAMOND NON-REACT DIAMOND [facility] INDEX 0.02 <1.00 [facility] Comment: ?? HCV antibody was non-reactive. There is no laboratory ?? evidence of HCV infection. ?? In most cases, no further action is required. However, if recent HCV exposure is suspected, a test for HCV RNA (test code 48157) is suggested. ?? For additional information please refer to http://[employer]/faq/THA53r4 (This link is being provided for informational/ educational purposes only.) ?? 12/20/2019 11:2 3 AM EDT Juany Hicks MD HISTORICAL/NON ORDERABLE LABS Fi nal Result [facility] [address] [place] [address], * HIV 1/2 ANTIGEN/ANTIBODY,FOURTH GENERATION W/RFL (12/20/2019 11:23 AM EDT) HIV-1/2 ANTIGEN AND ANTIBODIES, 4TH GENERATION W/ REFLEX NON-REACT DIAMOND NON-REACT DIAMOND [facility] Comment: HIV-1 antigen and HIV-1/HIV-2 antibodies were not detected. There is no laboratory evidence of HIV infection. ?? PLEASE NOTE: This information has been disclosed to you from records whose confidentiality may be protected by state law. ??If your state requires such protection, then the state law prohibits you from making any further disclosure of the information without the specific written consent of the person to whom it pertains, or as otherwise permitted by law. A general authorization for the release of medical or other information is NOT sufficient for this purpose. ? For additional information please refer to http://[employer]/faq/FFZ150 (This link is being provided for informational/ educational purposes only.) ? The performance of this assay has not been clinically validated in patients less than 2 years old. ?? HIV-1/2 ANTIGEN AND ANTIBODIES, 4TH GENERATION W/ REFLEX NON-REACT DIAMOND NON-REACT DIAMOND [facility] Comment: HIV-1 antigen and HIV-1/HIV-2 antibodies were not detected. There is no laboratory evidence of HIV infection. ?? PLEASE NOTE: This information has been disclosed to you from records whose confidentiality may be protected by state law. ??If your state requires such protection, then the state law prohibits you from making any further disclosure of the information without the specific written consent of the person to whom it pertains, or as otherwise permitted by law. A general authorization for the release of medical or other information is NOT sufficient for this purpose. ? For additional information please refer to http://[employer]/faq/IDX956 (This link is being provided for informational/ educational purposes only.) ? The performance of this assay has not been clinically validated in patients less than 2 years old. ?? HIV-1/2 ANTIGEN AND ANTIBODIES, 4TH GENERATION W/ REFLEX NON-REACT DIAMOND NON-REACT DIAMOND [facility] Comment: HIV-1 antigen and HIV-1/HIV-2 antibodies were not detected. There is no laboratory evidence of HIV infection. ?? PLEASE NOTE: This information has been disclosed to you from records whose confidentiality may be protected by state law. ??If your state requires such protection, then the state law prohibits you from making any further disclosure of the information without the specific written consent of the person to whom it pertains, or as otherwise permitted by law. A general authorization for the release of medical or other information is NOT sufficient for this purpose. ? For additional information please refer to http://[employer]/faq/SJS132 (This link is being provided for informational/ educational purposes only.) ? The performance of this assay has not been clinically validated in patients less than 2 years old. ?? HIV-1/2 ANTIGEN AND ANTIBODIES, 4TH GENERATION W/ REFLEX NON-REACT DIAMOND NON-REACT DIAMOND [facility] Comment: HIV-1 antigen and HIV-1/HIV-2 antibodies were not detected. There is no laboratory evidence of HIV infection. ?? PLEASE NOTE: This information has been disclosed to you from records whose confidentiality may be protected by state law. ??If your state requires such protection, then the state law prohibits you from making any further disclosure of the information without the specific written consent of the person to whom it pertains, or as otherwise permitted by law. A general authorization for the release of medical or other information is NOT sufficient for this purpose. ? For additional information please refer to http://[employer]/faq/PUK864 (This link is being provided for informational/ educational purposes only.) ? The performance of this assay has not been clinically validated in patients less than 2 years old. ?? 12/20/2019 11:2 3 AM EDT us Juany Hicks MD LAB BLOOD ORDERABLES Final Resul t [facility] [address] * (ABNORMAL) LIPID PANEL, STANDARD (12/20/2019 11:23 AM EDT) [facility] Chol/HDLC Ratio 3.5 <5.0 (calc) [facility] Cholesterol, Total 228(H) <200 mg/dL [facility] HDL Cholesterol 65 > OR = 50 mg/dL [facility] Non-HDL Cholesterol 163(H) <130 mg/dL (calc) [facility] Comment: For patients with diabetes plus 1 major ASCVD risk ?? factor, treating to a non-HDL-C goal of <100 mg/dL ?? (LDL-C of <70 mg/dL) is considered a therapeutic ?? option. LDL Cholesterol 143(H) mg/dL (calc) [facility] Comment: Reference range: <100 ?? Desirable range <100 mg/dL for primary prevention; ?? <70 mg/dL for patients with CHD or diabetic patients ?? with > or = 2 CHD risk factors. ?? LDL-C is now calculated using the Yessenia ?? calculation, which is a validated novel method providing ?? better accuracy than the Friedewald equation in the ?? estimation of LDL-C. ?? Home HARRIS et al. [place]. 2013;310(19): 9292-9153 ?? (http://education.[employer]/faq/FNY651) HDL Cholesterol 65 > OR = 50 mg/dL [facility] Chol/HDLC Ratio 3.5 <5.0 (calc) [facility] Triglycerides 94 <150 mg/dL [facility] Non-HDL Cholesterol 163(H) <130 mg/dL (calc) [facility] Comment: For patients with diabetes plus 1 major ASCVD risk ?? factor, treating to a non-HDL-C goal of <100 mg/dL ?? (LDL-C of <70 mg/dL) is considered a therapeutic ?? option. Triglycerides 94 <150 mg/dL [facility] HDL Cholesterol 65 > OR = 50 mg/dL [facility] Non-HDL Cholesterol 163(H) <130 mg/dL (calc) [facility] Comment: For patients with diabetes plus 1 major ASCVD risk ?? factor, treating to a non-HDL-C goal of <100 mg/dL ?? (LDL-C of <70 mg/dL) is considered a therapeutic ?? option. Triglycerides 94 <150 mg/dL [facility] Triglycerides 94 <150 mg/dL [facility] Cholesterol, Total 228(H) <200 mg/dL [facility] Cholesterol, Total 228(H) <200 mg/dL [facility] LDL Cholesterol 143(H) mg/dL (calc) [facility] Comment: Reference range: <100 ?? Desirable range <100 mg/dL for primary prevention; ?? <70 mg/dL for patients with CHD or diabetic patients ?? with > or = 2 CHD risk factors. ?? LDL-C is now calculated using the Home-Rascon ?? calculation, which is a validated novel method providing ?? better accuracy than the Friedewald equation in the ?? estimation of LDL-C. ?? Home SS et al. [place]. 2013;310(19): 2046-1192 ?? (http://[employer]/faq/APD359) LDL Cholesterol 143(H) mg/dL (calc) [facility] Comment: Reference range: <100 ?? Desirable range <100 mg/dL for primary prevention; ?? <70 mg/dL for patients with CHD or diabetic patients ?? with > or = 2 CHD risk factors. ?? LDL-C is now calculated using the Ohme-Rascon ?? calculation, which is a validated novel method providing ?? better accuracy than the Friedewald equation in the ?? estimation of LDL-C. ?? Home SS et al. [place]. 2013;310(19): 6536-9968 ?? (http://[employer]/faq/CSW470) Chol/HDLC Ratio 3.5 <5.0 (calc) [facility] Triglycerides 94 <150 mg/dL [facility] HDL Cholesterol 65 > OR = 50 mg/dL [facility] HDL Cholesterol 65 > OR = 50 mg/dL [facility] Non-HDL Cholesterol 163(H) <130 mg/dL (calc) [facility] Comment: For patients with diabetes plus 1 major ASCVD risk ?? factor, treating to a non-HDL-C goal of <100 mg/dL ?? (LDL-C of <70 mg/dL) is considered a therapeutic ?? option. Chol/HDLC Ratio 3.5 <5.0 (calc) [facility] Cholesterol, Total 228(H) <200 mg/dL [facility] LDL Cholesterol 143(H) mg/dL (calc) [facility] Comment: Reference range: <100 ?? Desirable range <100 mg/dL for primary prevention; ?? <70 mg/dL for patients with CHD or diabetic patients ?? with > or = 2 CHD risk factors. ?? LDL-C is now calculated using the Home-Rascon ?? calculation, which is a validated novel method providing ?? better accuracy than the Friedewald equation in the ?? estimation of LDL-C. ?? Home SS et al. [place]. 2013;310(19): 8786-0516 ?? (http://[employer]/faq/MVH581) Chol/HDLC Ratio 3.5 <5.0 (calc) [facility] Cholesterol, Total 228(H) <200 mg/dL [facility] LDL Cholesterol 143(H) mg/dL (calc) [facility] Comment: Reference range: <100 ?? Desirable range <100 mg/dL for primary prevention; ?? <70 mg/dL for patients with CHD or diabetic patients ?? with > or = 2 CHD risk factors. ?? LDL-C is now calculated using the Home-Rascon ?? calculation, which is a validated novel method providing ?? better accuracy than the Friedewald equation in the ?? estimation of LDL-C. ?? Home SS et al. [place]. 2013;310(19): 7432-2114 ?? (http://[employer]/faq/YDX916) Non-HDL Cholesterol 163(H) <130 mg/dL (calc) [facility] Comment: For patients with diabetes plus 1 major ASCVD risk ?? factor, treating to a non-HDL-C goal of <100 mg/dL ?? (LDL-C of <70 mg/dL) is considered a therapeutic ?? option. 12/20/2019 11:2 3 AM EDT us Juany Hicks MD LAB BLOOD ORDERABLES Final Resul t [facility] [address] from Last 3 Months or Most Recently Relevant to Health Maintenance Insurance [facility] C3 Care Teams Advice Nurse Relationship Specialty Start Date End Date Juany Hicks MD [address] [place] [id number] PCP - General Family Medicine 05/03/18
== END 2024-09-26 11:28 | disposition home or self-care (01) ==
LOC: HO.HGI 10:45
PROVIDERS: PCP Family Medicine; Visit Provider Nurse Practitioner
DX: K21.9 Gastro-esophageal reflux disease without esophagitis (principal); R10.10 Upper abdominal pain, unspecified; K59.00 Constipation, unspecified
CPT/HCPCS: 99214

== ENCOUNTER 2024-10-03 08:59 | Outpatient (REF) | payer MEDICAID, SELFPAY ==
--- NOTE | ~2024-10-03 | FL_ITS ---
EXAMINATION: XR BARIUM SWALLOW CLINICAL INFORMATION: Gastroesophageal reflux disease. COMPARISON: None available. TECHNIQUE: Routine barium swallow was performed in upright view with thick barium. Subsequently patient was placed prone with oral administration of thin barium. FINDINGS: Clinical decision of thick barium there is normal propagation of bolus from the oral cavity through the pharynx, esophagus into stomach without any obstruction, narrowing or stricture. On placing patient prone lying and oral administration of thick barium there is good distention of entire esophagus with a small hiatal hernia noted. No acute reflux visualized on this exam. FLUOROSCOPY TIME: 1 minute 21 seconds DOSE AREA PRODUCT: 34.4 mg/CM. uGy-m2 (microgray-meter squared) FL/FL barium swallow IMPRESSION: Small hiatal hernia with no gastroesophageal reflux seen. Electronically signed by: Floyd Sanchez MD 10/03/2024 11:44 AM EDT
== END 2024-10-03 09:00 | disposition home or self-care (01) ==
LOC: HO.XRAY 08:59
PROVIDERS: PCP Family Medicine; Visit Provider Nurse Practitioner
DX: K21.9 Gastro-esophageal reflux disease without esophagitis (principal); R10.10 Upper abdominal pain, unspecified
CPT/HCPCS: 74220

== ENCOUNTER → 2024-10-03 09:01 | Outpatient (BNV) | payer MEDICAID, SELFPAY | PROVIDERS: PCP Family Medicine; Visit Provider Radiology Diagnostic Radiology | DX: K44.9 Diaphragmatic hernia without obstruction or gangrene (principal) | CPT/HCPCS: 74246 ==

== ENCOUNTER 2024-11-01 15:42 | Outpatient (REF) | payer MEDICAID, SELFPAY ==
[2024-11-01 17:18] LABS: Appearance Urine Clear; Glucose Urine UA Negative (Negative); PH 6.5 (5.0-9.0); Specific Gravity - Urine 1.010 (1.005-1.025); UMIC TRIGGER UACC YES
[2024-11-01 17:32] LABS: UACC Culture Trigger YES
[2024-11-01 18:23] LABS: Ferritin 7 ng/mL (10-250)
== END 2024-11-01 15:43 | disposition home or self-care (01) ==
LOC: HO.LAB 15:42
PROVIDERS: PCP Family Medicine; Visit Provider Nurse Practitioner
DX: K21.9 Gastro-esophageal reflux disease without esophagitis (principal); D12.6 Benign neoplasm of colon, unspecified; R10.10 Upper abdominal pain, unspecified; K59.00 Constipation, unspecified; D64.9 Anemia, unspecified; R63.4 Abnormal weight loss
CPT/HCPCS: 36415; 81001; 82728; 84443; 87086; 99212

== ENCOUNTER 2024-11-01 15:42 | Outpatient (AMB) | payer MEDICAID, SELFPAY ==
--- NOTE | 2024-11-01 15:44 | MHC.OFFVIS ---
Vital Signs 11/01/24 15:45 Height 5 ft 1 in Weight 119 lb 0.794 oz BMI 22.5 BP 126/82 Blood Pressure Location Lt brachial Position Sitting Pulse 93 Intake Visit Reasons: Gerd Intake Note: Lucas presents in the office as a follow up for GERD. CC: weight loss is an issue, acid reflux, sometimes constipation. Has been drinking ensure - sees her PCP tomorrow. 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 Allergies promethazine (From [facility]ENER[facility]) Allergy (Severe, Verified 11/01/24 15:46) FACIAL SWELLING metoclopramide Allergy (Unknown, Verified 11/01/24 15:46) neuro symptoms-face prochlorperazine Allergy (Unknown, Verified 11/01/24 15:46) memory loss chlorpheniramine (Phenagil) Adverse Reaction (Unknown, Verified 11/01/24 15:46) upset stomach HPI HPI Gerd: Details: Assessment & Plan (1) GERD (gastroesophageal reflux disease): Code(s): K21.9 - Gastro-esophageal reflux disease without esophagitis Category: Medical (2) Upper abdominal pain: Code(s): R10.10 - Upper abdominal pain, unspecified Category: Medical (3) Constipation: Code(s): K59.00 - Constipation, unspecified Category: Medical Plan SHE HAD AN EGD IN [address] DUDLEY that showed a hiatal hernia of undetermined size saw me know barium swallow record had that time it was for intractable GERD. She has been having problems with gastric to epigastric pain for the past 3 weeks, of sudden onset. This is accompanied by worsening heartburn and generalized dyspepsia and some. Abdominal discomfort as well. She feels that she is moving her bowels sufficiently although she does have occasional constipation. This could be contributing to her symptoms so I recommend that she try taking some milk of magnesia every night to get her bowel motility restored. She is agreeable to this. She denies any new medications or change in current dosing it could be affecting this or any severe diet changes. She has had this problem off and on over the years, she had been taking [id number] omeprazole so will try her on pantoprazole to give her some relief until we can get some testing in see if there is any reason to suspect H pylori, gallbladder disease, or other contributing pathologies. Next avil. Orders: Orders US abdomen complete Today K21.9 - Gastro-esophageal reflux disease without esophagitis, R10.10 - Upper abdominal pain, unspecified Comprehensive Met. Panel Today K21.9 - Gastro-esophageal reflux disease without esophagitis, R10.10 - Upper abdominal pain, unspecified H pylori Ag Stool Today K21.9 - Gastro-esophageal reflux disease without esophagitis, R10.10 - Upper abdominal pain, unspecified Complete Blood Count Auto Diff Today K21.9 - Gastro-esophageal reflux disease without esophagitis, R10.10 - Upper abdominal pain, unspecified FL barium swallow Today K21.9 - Gastro-esophageal reflux disease without esophagitis, R10.10 - Upper abdominal pain, unspecified Medications: New famotidine (Pepcid) 40 mg PO BEDTIME 30 tabs 6RF K21.9 - Gastro-esophageal reflux disease without esophagitis, R10.10 - Upper abdominal pain, unspecified magnesium hydroxide (Milk of Magnesia) 10 mL PO BEDTIME 3,780 mL 6RF K59.00 - Constipation, unspecified LABS Laboratory Tests 09/26/24 11:52 WBC 5.1 Hgb 11.7 L Hct 36.3 L MCV 88.5 MCH 28.5 Plt Count 259 Estimated GFR > 60 Total Bilirubin 0.2 AST 28 ALT 22 Alkaline Phosphatase 70 H PYLORI STOOL NOT OBTAINED. BARIUM SWALLOW 10/03/2024 FINDINGS: Clinical decision of thick barium there is normal propagation of bolus from the oral cavity through the pharynx, esophagus into stomach without any obstruction, narrowing or stricture. On placing patient prone lying and oral administration of thick barium there is good distention of entire esophagus with a small hiatal hernia noted. No acute reflux visualized on this exam. FLUOROSCOPY TIME: 1 minute 21 seconds DOSE AREA PRODUCT: 34.4 mg/CM. uGy-m2 (microgray-meter squared) FL/FL barium swallow IMPRESSION: Small hiatal hernia with no gastroesophageal reflux seen. * US ABD 11/17/2024 TODAYS VISIT She received pepcid, no pantoprazole as I would have liked, and this is not helping her sx of epigastric to gastric pain. She continues to lose weight.Will re send pantoprazle. She is eating well and is using Ensure. SHe admits to increased anxiety r/t caring for her mother, and pretty significant insomnia. WIll be seeing PCP tomorrow. 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 Will get UA and TSH and ordering EGD. She has US upcoming, Barium swallow no severe abn. ROV 6 weeks. [facility] Medical History Abnormal Pap smear of cervix Chronic gastritis Anxiety Depression IBS (irritable bowel syndrome) Vitamin D deficiency Back pain GERD (gastroesophageal reflux disease) Surgical History History of esophagogastroduodenoscopy (EGD) Hx of colonoscopy H/O hemorrhoidectomy Family History Maternal Grandmother Liver cancer Maternal Uncle Throat cancer Social History Alcohol intake: never Patient Tobacco Use Status: Current everyday Tobacco user Tobacco use type: Cigarette Cigarette Packs Per Day: 5 Review of Systems Const Reports fatigue, Denies fever(s), Denies night sweats, Denies poor appetite and Reports weight loss ENT Reports Normal hearing present, Denies dental pain, Denies dysphagia, Denies hearing loss, Denies mouth pain, Denies odynophagia, Denies throat swelling, Denies tongue swelling and Reports other (Dentition adequate) Card Reports no additional complaints Resp Reports no additional complaints GI Details: Reports abdominal pain, Denies melena, Denies bloating, Denies hematochezia, Denies constipation, Denies GI cramping, Denies dysphagia, Denies excessive flatus, Denies early satiety, Denies heartburn, Denies diarrhea, Denies nausea, Denies odynophagia, Denies vomiting and Denies hematemesis Skin/Breast Denies pruritus, Denies lesions, Denies rash and Denies jaundice Neuro Reports Normal hearing present and Denies Abnormal speech present Psych Reports abnormal sleep pattern, Reports anxiety, Denies homicidal ideation and Denies suicidal ideation Endo Reports fatigue Aller/Immun Denies throat swelling and Denies tongue swelling Physical Exam Vital Signs: Last Vital Signs Pulse 93 11/01/24 15:45 BP 126/82 11/01/24 15:45 BMI result Body Mass Index 22.5 Const General: cooperative, no acute distress, well developed and well groomed Nutritional Appearance: average body habitus and well nourished Orientation/consciousness: oriented to person, oriented to place and oriented to time Limitations: No language barrier HEENT Head: Yes normocephalic and Yes atraumatic Eyes General: appearance normal, both eyes and all related structures Pupils: Equal, round and reactive pupils present Neck Neck: Yes normal visual inspection and Yes no lymphadenopathy Thyroid: Thyroid normal Resp Effort & Inspection: normal respiratory effort and able to speak in complete sentences Auscultation: clear to auscultation bilaterally Cardio Rate: regular rate Rhythm: regular rhythm Heart sounds: Normal, physiologic split S2 sound present Peripheral pulses: radial pulses present and posterior tibial pulses present GI Inspection: No distended and No Abdominal panniculus present Palpation (GI): Soft to palpation, nontender, no guarding, not rigid, No hepatosplenomegaly present and Hepatosplenomegaly present Percussion: Yes normal to percussion Auscultation: normal bowel sounds Rectal Exam - Female: deferred Skin General skin exam: no rashes or lesions noted, turgor normal, skin not dry, no jaundice, No spider nevi and no striae Rashes: no rashes Nails: normal Neuro General: oriented to person, oriented to place and oriented to time Cranial nerves: Yes Equal, round and reactive pupils present and Yes Normal hearing present Speech: No Abnormal speech present Extrem General: Yes normal to inspection, No clubbing, No cyanosis and No edema Psych Appearance: grossly normal and well kempt Mental Status: mental status grossly normal Speech and movement: Normal speech and movement present Affect: normal affect Thought process: Normal thought process present and not confabulating Thought content: Normal thought content present Insight: Fair insight present (Psych) Judgement: Fair judgement present (Psych) Results Reviewed Results Reviewed: Laboratory Tests 09/26/24 11:52 WBC 5.1 Hgb 11.7 L Hct 36.3 L MCV 88.5 MCH 28.5 Plt Count 259 Estimated GFR > 60 Total Bilirubin 0.2 AST 28 ALT 22 Alkaline Phosphatase 70 H PYLORI STOOL NOT OBTAINED. BARIUM SWALLOW 10/03/2024 FINDINGS: Clinical decision of thick barium there is normal propagation of bolus from the oral cavity through the pharynx, esophagus into stomach without any obstruction, narrowing or stricture. On placing patient prone lying and oral administration of thick barium there is good distention of entire esophagus with a small hiatal hernia noted. No acute reflux visualized on this exam. FLUOROSCOPY TIME: 1 minute 21 seconds DOSE AREA PRODUCT: 34.4 mg/CM. uGy-m2 (microgray-meter squared) FL/FL barium swallow IMPRESSION: Small hiatal hernia with no gastroesophageal reflux seen. * US ABD 11/17/2024 Assessment & Plan Assessment & Plan (1) GERD (gastroesophageal reflux disease): Code(s): K21.9 - Gastro-esophageal reflux disease without esophagitis Category: Medical (2) Constipation: Code(s): K59.00 - Constipation, unspecified Category: Medical (3) Tubular adenoma of colon: Comment: 2022 scope equals TA repeat in 3 years Code(s): D12.6 - Benign neoplasm of colon, unspecified Category: Medical (4) Upper abdominal pain: Code(s): R10.10 - Upper abdominal pain, unspecified Category: Medical (5) Weight loss: Code(s): R63.4 - Abnormal weight loss Category: Medical (6) Anemia: Code(s): D64.9 - Anemia, unspecified Category: Medical Plan She received pepcid, no pantoprazole as I would have liked, and this is not helping her sx of epigastric to gastric pain. She continues to lose weight.Will re send pantoprazle. She is eating well and is using Ensure. SHe admits to increased anxiety r/t caring for her mother, and pretty significant insomnia. WIll be seeing PCP tomorrow. 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 Will get UA and TSH and ordering EGD. She has US upcoming, Barium swallow no severe abn. ROV 6 weeks. Orders: Orders TSH reflex Free T4 Today R63.4 - Abnormal weight loss Ferritin Today D64.9 - Anemia, unspecified UA CC w/rflx Micro + Cult Today R63.4 - Abnormal weight loss EGD - GI Use Only Today R10.10 - Upper abdominal pain, unspecified Medications: New pantoprazole (Protonix) 40 mg PO DAILY 30 tabs 6RF 30 days K21.9 - Gastro-esophageal reflux disease without esophagitis Coding Level of Care Code Est Pt Level 3 (77307) Diagnoses GERD (gastroesophageal reflux disease) K21.9 Constipation K59.00 Tubular adenoma of colon D12.6 Upper abdominal pain R10.10 Weight loss R63.4 Anemia D64.9
[2024-11-01 15:45] VITALS: BP 126/82; PULSE 93; BMI 22.5
--- OUTSIDE RECORDS SUMMARY | 2024-11-01 15:47 | XMS_ITS | Clinical Summary ---
Author Organization [employer] 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 Name Role Phone Unavailable Primary Care Provider Unavailabl e Social History Tobacco Use Types Packs/Day Years Used Date Smoking Tobacco: Never Assessed Comments Unknown Sex and Gender Information Value Date Recorded Sex Assigned at Not on file Legal Sex Female 6:17 PM EST Gender Identity Not on file Sexual Orientation Not on file Plan of Treatment Health Maintenance Due Date Last Done Comments Breast Cancer Screening 1975 DTaP,Tdap,and Td Vaccines (1 - Tdap) 02/05/1995 Hepatitis B Vaccines (1 of 3 - 19+ 3-dose series) 02/05/1995 Cervical Cancer Screening: P ap Smear 02/05/1997 COVID-19 Vaccine ( - 2023-2 5 season) 2024 Influenza Vaccine (#1) 2025 HIB Vaccines Aged Out No longer eligi [...] on patient's age to complete this topic MMR Vaccines Aged Out No longer eligi ble based on patient's age to complete this topic Meningococcal ACWY Vaccine Aged Out N o longer eligible based on patient's age to complete this topic Meningococcal B Vaccine Aged Out No l onger eligible based on patient's age to complete this topic Pneumococcal Vaccine: Pediat rics (0 to 5 Years) and At-Risk Patients (6 to 64 Years) Aged Out No longer eligible b ased on patient's age to complete this topic RSV Immunization Patients Un fannie 20 months Aged Out No longer eligible b ased on patient's age to complete this topic Varicella Vaccines Aged Out No longer eligible based on patient's age to complete this topic
--- OUTSIDE RECORDS SUMMARY | 2024-11-01 15:47 | XMS_ITS | Clinical Summary ---
Author Organization [employer] Address [address] [place] [address] [address] [place] [address] Care Team Providers Care Mail Processor Name Role Phone Juany Hicks MD Primary Care Provider [phone] Allergies Active Allergy Reactions Criticality Noted Date [...] mouth at bedtime. 90 tablet 3 04/14/20 Active cetirizine (ZyrTEC) 10 MG tabletIndications: Chronic [...] muscle spasms. 60 tablet 1 08/18/19 25 Active Diclofenac Sodium 1 % gel Apply 2 g topically if needed in the morning, at noon, in the evening, and at bedtime (pain). 150 g 1 08/18/19 25 Active Active Problems Problem Noted Date Diagnosed Date [...] Assessment & Plan (04/14/2022 5:32 PM EST): Likely related to her sinus and nasal cavity Resume cetirizine and montelukast for allergic rhinitis Will order sinus CT Will refer to ENT for further evaluation and management (may need allergy testing) Work on smoking cessation. Ageusia 04/14/2022 Assessment & Plan (04/14/2022 5:34 PM EST): Likely due to loss of smell sense Evaluate for nasal problem Work on smoking cessation Review medication that may cause ageusia / dysgeusia Chronic rhinosinusitis 04/14/2022 Assessment & Plan (04/14/2022 5:39 PM EST): Restart cetirizine and montelukast Evaluate with sinus CT Refer to ENT Smoking cessation Palpitation 04/14/2022 Assessment & Plan (04/14/2022 5:46 PM EST): Holter monitor on 01/06/22 predominantly NSR, rare supraventricular ectopy. Reduce caffeine intake Smoking cessation Consider sleep study Carpal tunnel syndrome 04/03/2022 Tobacco user 04/03/2022 Assessment & Plan (04/14/2022 5:45 PM EST): < 20 pack years Continue working on lifestyle modifications Lung cancer screening program in few years. Arthritis of facet joint of lumbar spine 021 Allergic rhinitis 06/18/2016 Chronic gastritis 06/18/2016 Mixed anxiety and depressive disorder 12/10/2015 Cervical intraepithelial swapna plasia grade III with severe dysplasia 09/13/2014 Assessment & Plan (04/14/2022 5:44 PM EST): Followed by [facility] Hx YOJANA-III LEEP and Cone Bx in 2014 Most recent PAP 09/18/20 NILM with negative high risk HPV Abnormal cervical Papanicolaou smear 08/27/2014 Anxiety 08/27/2014 Asthma 08/27/2014 Chronic back pain 08/27/2014 Backache 06/13/2012 Gastroesophageal reflux disease 03/23/2012 Irritable bowel syndrome 03/23/2012 Vitamin D deficiency 03/23/2012 Encounters Date Type Department Care Team Description 11/01/2024 Telephone [facility] [address] [place] [address] Juany Hicks MD CHART PREP 09/26/2024 Orders Only GENERIC EXTERNAL DATA DEPARTMENT Provider, Generic External Data 08/17/2024 10:00 AM EDT Office Visit [facility] [address] [place] [address] Betty Houser DO Acute right-sided low back pain without sciatica (Primary Dx); Elevated BP without diagnosis of hypertension; Acute bilateral low back pain, unspecified whether sciatica present from Last 3 Months Immunizations Immunization Administration [...] 90 08/17/2024 11:01 AM EDT Temperature 36.6 C (97.9 F) 08/17/2024 10:10 AM EDT Respiratory Rate 18 08/17/2024 11:01 AM EDT Oxygen Saturation 100% 08/17/2024 11:01 AM EDT Inhaled Oxygen Concentration - - Weight 57.6 kg (127 lb) 08/17/2024 10:10 AM EDT Height 154.9 cm (5' 1 ) 11/23/2023 3:51 PM EDT Body Mass Index 24 11/23/2023 3:51 PM EDT Plan of Treatment Upcoming Encounters Date Type Department Care Team (Late st Contact Info) Description 11/02/2024 9:00 AM EDT Office Visit [facility] [address] [place] [address] Juany Hicks MD [address] [place] [address] Health Maintenance Due Date Last Done Comments CT Colonography 1976 Depression Screening 1976 FIT DNA/Cologuard 1976 FIT 1976 FOBT 1975 SDOH Screening 1975 Sigmoidoscopy 1975 Disability Screening 1976 Alcohol/Substance Use Screening 1988 Family Planning (PISQ) 02/05/1991 Hepatitis B Vaccines (1 of 3 - 19+ 3-dose series) 02/05/1995 Pneumococcal Vaccine: Pediatrics (0 to 5 Years) and At-Risk Patients (6 to 49) Years (2 of 2 - PCV) 06/13/2013 06/13/2012 Mammogram 09/16/2022 09/16/2020, 10/06/2017 COVID-19 Vaccine ( season) 2024 06/04/2021, 05/07/2021 Lipid Panel 12/19/2024 12/20/2019 Influenza Vaccine (#1) 2025 2, 06/04/2021, 03/22/2020, Additional history exists Tobacco Screening 08/17/2025 08/17/2024 Cervical Cancer Screening 09/18/2025 HPV/Cotest 09/18/2025 09/18/2020 Pap Smear 09/18/2025 09/18/2020 Zoster Vaccines (1 of 2) [...] Procedure Name Priority Date/Time Associated Diagnosis Comments FL ESOPHAGUS BARIUM SWALLOW Routine 10/03/2024 9:00 AM EDT COMPREHENSIVE METABOLIC PANEL Routine 09/26/2024 11:52 AM EDT CBC WITH AUTO DIFFERENTIAL Routine 09/26/2024 11:52 AM EDT HM COLONOSCOPY Routine 10/30/2022 HPV GENOTYPES 16,18/45 Routine 4:28 PM EDT THINPREP PAP Routine 09/18/2020 [...] Recently Relevant to Health Maintenance Results * FL Esophagus Barium Swallow (10/03/2024 9:00 AM EDT) Anatomical Region Laterality Modality Head, Neck Radiographic Yudi ging 10/03/2024 9:0 0 AM EDT Narrative 10/03/2024 11:47 AM EDT [place] [address] Fluoroscopy Report Signed Patient: Lucas Brown MR#: [id number] 268 : 1975 Acct:[id number] Age/Sex: 49 / F ADM Date: 10/03/24 Loc: [facility] Attending Dr: Fanta GANDHI Ordering Physician: Fanta Osuna Date of Service: 10/03/24 Procedure(s): FL barium swallow Accession Number(s): [id number] cc: Fanta Osuna; Juany Hicks MD EXAMINATION: XR BARIUM SWALLOW CLINICAL INFORMATION: Gastroesophageal reflux disease. COMPARISON: None available. TECHNIQUE: Routine barium swallow was performed in upright view with thick barium. Subsequently patient was placed prone with oral administration of thin barium. FINDINGS: Clinical decision of thick barium there is normal propagation of bolus from the oral cavity through the pharynx, esophagus into stomach without any obstruction, narrowing or stricture. On placing patient prone lying and oral administration of thick barium there is good distention of entire esophagus with a small hiatal hernia noted. No acute reflux visualized on this exam. FLUOROSCOPY TIME: 1 minute 21 seconds DOSE AREA PRODUCT: 34.4 mg/CM. uGy-m2 (microgray-meter squared) FL/FL barium swallow IMPRESSION: Small hiatal hernia with no gastroesophageal reflux seen. Electronically signed by: Floyd Sanchez MD 10/03/2024 11:44 AM EDT Dictated By: Floyd Sanchez MD Signed By: <Electronically signed by Floyd Sanchez MD in OV> 10/03/24 1144 DD/ 09 TD/TT: 10/03/24929 Manager Trading: [facility] [place] Donotuseinterpreter, Image - 10/03/2024 [place] [address] Fluoroscopy Report Signed Patient: Kellen Brown#: [id number] 268 : 1975Acct:[id number] Age/Sex: 49 / FADM Date: 10/03/24 Loc: [facility] Attending Dr: Fanta GANDHI Ordering Physician: Fanta Osuna Date of Service: 10/03/24 Procedure(s): FL barium swallow Accession Number(s): [id number] cc: Fanta Osuna; Juany Hicks MD EXAMINATION: XR BARIUM SWALLOW CLINICAL INFORMATION: Gastroesophageal reflux disease. COMPARISON: None available. TECHNIQUE: Routine barium swallow was performed in upright view with thick barium. Subsequently patient was placed prone with oral administration of thin barium. FINDINGS: Clinical decision of thick barium there is normal propagation of bolus from the oral cavity through the pharynx, esophagus into stomach without any obstruction, narrowing or stricture. On placing patient prone lying and oral administration of thick barium there is good distention of entire esophagus with a small hiatal hernia noted. No acute reflux visualized on this exam. FLUOROSCOPY TIME: 1 minute 21 seconds DOSE AREA PRODUCT: 34.4 mg/CM. uGy-m2 (microgray-meter squared) FL/FL barium swallow IMPRESSION: Small hiatal hernia with no gastroesophageal reflux seen. Electronically signed by: Floyd Sanchez MD 10/03/2024 11:44 AM EDT RP Dictated By: Floyd Sanchez MD Signed By: <Electronically signed by Floyd Sanchez MD in OV> 10/03/24 1144 DD/ 0900 TD/TT: 10/03/24 0930 Manager Trading: [facility] External Provider IMG FLU OROSCOPY PROCEDURES Final Result * (ABNORMAL) CBC auto differential (09/26/2024 11:52 AM EDT) White Blood Count 5.1 4.8 - 10.8 X10*3/uL [facility] Red Blood Count 4.10(L) 4.20 - 5.50 X10*6/uL [facility] Hemoglobin 11.7(L) 12.0 - 16.0 g/dl [facility] Hematocrit 36.3(L) 37.0 - 47.0 % [facility] Mean Corpuscular Volume 88.5 80.0 - 98.0 fL [facility] Mean Corpuscular Hemoglobin 28.5 27.0 - 33.0 pg [facility] Mean Corpuscular HGB Conc 32.2 31.0 - 35.0 g/dl [facility] Red Cell Distribution Width 15.4 11.0 - 16.0 % [facility] Platelet Count 259 160 - 400 X10*3/uL [facility] Mean Platelet Volume 11.2 9.4 - 12.3 fL [facility] Neutrophils Percent Auto 60.7 45 - 73 % [facility] Imm Gran Pct Auto 0.4 0.0 - 0.4 % [facility] Lymphocytes Percent Auto 29.9 20 - 40 % [facility] Monocytes Percent Auto 7.8 2 - 11 % [facility] Eosinophils Percent Auto 0.6 0 - 4 % [facility] Basophils Percent Auto 0.6 0 - 2 % [facility] NRBC Pct Auto 0.0 0.0 - 0.2 /100WBC [facility] Neutrophils Absolute Auto 3.1 2.0 - 8.3 x10*3/uL [facility] Imm Gran Abs Auto 0.02 0.00 - 0.03 X10*3/uL [facility] Lymphocytes Absolute Auto 1.5 1.2 - 4.9 X10*3/uL [facility] Monocytes Absolute Auto 0.4 0.1 - 1.2 X10*3/uL [facility] Eosinophils Absolute Auto 0.0 0.0 - 0.4 X10*3/uL [facility] Basophils Absolute Auto 0.0 0.0 - 0.2 X10*3/uL [facility] NRBC Abs Auto 0.000 0.0 - 0.012 X10*3/uL [facility] 09/26/2024 11:5 2 AM EDT 09/26/2024 11:52 AM EDT us Generic External Data Provider LAB BLOOD ORDERAB LES Final Result [facility] [address] [place], [place] [phone] * (ABNORMAL) Comprehensive Metabolic Panel (09/26/2024 11:52 AM EDT) Sodium 138 135 - 145 mmol/L [facility] Potassium 4.0 3.3 - 5.1 mmol/L [facility] Chloride 107 96 - 108 mmol/L [facility] Carbon Dioxide 24 22 - 29 mmol/L [facility] Anion Gap 11(L) 12 - 20 [facility] Urea Nitrogen (BUN) 12 9 - 16 mg/dL [facility] Creatinine, Serum 0.69 0.5 - 1.4 mg/dL [facility] Estimated Glomerular Filt Rate >60 [facility] Comment:Chronic Kidney Disea se: Estimated GFR < 60 mL/min/1.64s2Mnszpe Kidney Disease: Estimated GFR < 15 mL/min/1.73m2 Glucose 88 60 - 115 mg/dL [facility] Calcium 9.4 8.4 - 10.2 mg/dL [facility] Bilirubin, Total 0.2 0.0 - 1.0 mg/dL [facility] Aspartate Amino Transferase 28 5 - 31 U/L [facility] Alanine Aminotransferase 22 0 - 31 U/L [facility] Total Protein 7.6 6.5 - 8.0 g/dL [facility] Albumin Level 4.4 3.5 - 5.0 g/dL [facility] Alkaline Phosphatase 70 39 - 117 U/L [facility] 09/26/2024 11:5 2 AM EDT 09/26/2024 11:52 AM EDT us Generic External Data Provider LAB BLOOD ORDERAB LES Final Result [facility] [address] [place] [phone] * (ABNORMAL) Hm Colonoscopy (10/30/2022) Colonoscopy Normal Normal Comment:tubular adenoma 10/30/2022 us Coleman Juarez MD HEALTH MAINTENANCE Final Result * THINPREP PAP (09/18/2020 4:28 PM EDT) Clinical Information: None given [facility] COMMENT SEE COMMENT [facility] Comment: EXPLANATORY NOTE: The Pap is a screening test for cervical cancer. It is not a diagnostic test and is subject to false negative and false positive results. It is most reliable when a satisfactory sample, regularly obtained, is submitted with relevant clinical findings and history, and when the Pap result is evaluated along with historic and current clinical information. Retail Grocer : SEE COMMENT [facility] Comment: MXD, CT (ASCP) CT screening location: [place] [address] Infection Shift in vaginal aster suggestive of bacterial vaginosis. [facility] Interpretation/R esult: Negative for intraepithelial lesion or malignancy. [facility] LMP: NONE GIVEN [facility] Prev. BX: NONE [facility]IV[facility] Prev. PAP: NONE [facility]IVEN [facility] SOURCE: None given [facility] Statement Of Adequacy: SEE COMMENT [facility] Comment: Satisfactory for evaluation. Endocervical/transformation zone component absent. Age and/or menstrual status not provided 09/18/2020 4:28 PM EDT Paula Culp NP LAB PATHOLOGY ORDERABLES Final Result Performing Organization Address [facility] de Phone Number [facility] [address] * HPV GENOTYPES 16,18/45 (09/18/2020 4:28 PM EDT) HPV 16 RNA NOT DETECTED NOT DETECTED [facility] HPV 18/45 RNA NOT DETECTED NOT DETECTED [facility] Comment: Methodology: Filter Tip Inspector Mediated Amplification The analytical performance characteristics of this assay have been determined by [employer]. The modifications have not been cleared or approved by the FDA. This assay has been validated pursuant to the CLIA regulations and is used for clinical purposes. 09/18/2020 4:28 PM EDT Paula Culp NP LAB CYTOLOGY ORDERABLES Final R esult Performing Organization Address [facility] de Phone Number [facility] [address] * Mammography Report 1 (09/16/2020 10:30 AM EDT) Anatomical Region Laterality Modality Breast Bilateral Mammography 09/16/2020 10:3 0 AM EDT Narrative 09/17/2020 11:37 AM EDT Refer to the Notes tab for result details [facility] Procedure: Mammography Report 1 Procedure Note Provider, MD Sarah - 07/25/2022 Refer to the Notes tab for result details [facility] Procedure: Mammography Report 1 Juany Hicks MD IMG BI PROCEDURES Final Result * HEPATITIS C AB W/REFL TO HCV RNA, QN, PCR (12/20/2019 11:23 AM EDT) HEPATITIS C ANTIBODY NON-REACT DIAMOND NON-REACT DIAMOND [facility] INDEX 0.02 <1.00 [facility] Comment: HCV antibody was non-reactive. There is no laboratory evidence of HCV infection. In most cases, no further action is required. However, if recent HCV exposure is suspected, a test for HCV RNA (test code 88142) is suggested. For additional information please refer to http://Flythegap/faq/JNJ66s6 (This link is being provided for informational/ educational purposes only.) HEPATITIS C ANTIBODY NON-REACT DIAMOND NON-REACT DIAMOND [facility] INDEX 0.02 <1.00 [facility] Comment: HCV antibody was non-reactive. There is no laboratory evidence of HCV infection. In most cases, no further action is required. However, if recent HCV exposure is suspected, a test for HCV RNA (test code 71159) is suggested. For additional information please refer to http://Flythegap/faq/AMY72c8 (This link is being provided for informational/ educational purposes only.) HEPATITIS C ANTIBODY NON-REACT DIAMOND NON-REACT DIAMOND [facility] INDEX 0.02 <1.00 [facility] Comment: HCV antibody was non-reactive. There is no laboratory evidence of HCV infection. In most cases, no further action is required. However, if recent HCV exposure is suspected, a test for HCV RNA (test code 31664) is suggested. For additional information please refer to http://Flythegap/faq/GVW44p0 (This link is being provided for informational/ educational purposes only.) HEPATITIS C ANTIBODY NON-REACT DIAMOND NON-REACT DIAMOND [facility] INDEX 0.02 <1.00 [facility] Comment: HCV antibody was non-reactive. There is no laboratory evidence of HCV infection. In most cases, no further action is required. However, if recent HCV exposure is suspected, a test for HCV RNA (test code 58355) is suggested. For additional information please refer to http://Glokalise.MedSynergies/faq/BXB24a3 (This link is being provided for informational/ educational purposes only.) 12/20/2019 11:2 3 AM EDT us Juany Hicks MD HISTORICAL/NON ORDERABLE LABS Fi nal Result [facility] [address] [place] [phone] * HIV 1/2 ANTIGEN/ANTIBODY,FOURTH GENERATION W/RFL (12/20/2019 11:23 AM EDT) HIV-1/2 ANTIGEN AND ANTIBODIES, 4TH GENERATION W/ REFLEX NON-REACT DIAMOND NON-REACT DIAMOND [facility] Comment: HIV-1 antigen and HIV-1/HIV-2 antibodies were not detected. There is no laboratory evidence of HIV infection. PLEASE NOTE: This information has been disclosed to you from records whose confidentiality may be protected by state law. If your state requires such protection, then the state law prohibits you from making any further disclosure of the information without the specific written consent of the person to whom it pertains, or as otherwise permitted by law. A general authorization for the release of medical or other information is NOT sufficient for this purpose. For additional information please refer to http://Glokalise.LifeBio.App.net/faq/VQV996 (This link is being provided for informational/ educational purposes only.) The performance of this assay has not been clinically validated in patients less than 2 years old. HIV-1/2 ANTIGEN AND ANTIBODIES, 4TH GENERATION W/ REFLEX NON-REACT DIAMOND NON-REACT DIAMOND [facility] Comment: HIV-1 antigen and HIV-1/HIV-2 antibodies were not detected. There is no laboratory evidence of HIV infection. PLEASE NOTE: This information has been disclosed to you from records whose confidentiality may be protected by state law. If your state requires such protection, then the state law prohibits you from making any further disclosure of the information without the specific written consent of the person to whom it pertains, or as otherwise permitted by law. A general authorization for the release of medical or other information is NOT sufficient for this purpose. For additional information please refer to http://Glokalise.LifeBio.App.net/faq/VWK288 (This link is being provided for informational/ educational purposes only.) The performance of this assay has not been clinically validated in patients less than 2 years old. HIV-1/2 ANTIGEN AND ANTIBODIES, 4TH GENERATION W/ REFLEX NON-REACT DIAMOND NON-REACT DIAMOND [facility] Comment: HIV-1 antigen and HIV-1/HIV-2 antibodies were not detected. There is no laboratory evidence of HIV infection. PLEASE NOTE: This information has been disclosed to you from records whose confidentiality may be protected by state law. If your state requires such protection, then the state law prohibits you from making any further disclosure of the information without the specific written consent of the person to whom it pertains, or as otherwise permitted by law. A general authorization for the release of medical or other information is NOT sufficient for this purpose. For additional information please refer to http://Glokalise.MedSynergies/faq/QXA457 (This link is being provided for informational/ educational purposes only.) The performance of this assay has not been clinically validated in patients less than 2 years old. HIV-1/2 ANTIGEN AND ANTIBODIES, 4TH GENERATION W/ REFLEX NON-REACT DIAMOND NON-REACT DIAMOND [facility] Comment: HIV-1 antigen and HIV-1/HIV-2 antibodies were not detected. There is no laboratory evidence of HIV infection. PLEASE NOTE: This information has been disclosed to you from records whose confidentiality may be protected by state law. If your state requires such protection, then the state law prohibits you from making any further disclosure of the information without the specific written consent of the person to whom it pertains, or as otherwise permitted by law. A general authorization for the release of medical or other information is NOT sufficient for this purpose. For additional information please refer to http://Glokalise.MedSynergies/faq/DTO206 (This link is being provided for informational/ educational purposes only.) The performance of this assay has not been clinically validated in patients less than 2 years old. 12/20/2019 11:2 3 AM EDT us Juany Hicks MD LAB BLOOD ORDERABLES Final Resul t [facility] [address] * (ABNORMAL) LIPID PANEL, STANDARD (12/20/2019 11:23 AM EDT) Chol/HDLC Ratio 3.5 <5.0 (calc) [facility] Cholesterol, Total 228(H) <200 mg/dL [facility] HDL Cholesterol 65 > OR = 50 mg/dL [facility] Non-HDL Cholesterol 163(H) <130 mg/dL (calc) [facility] Comment: For patients with diabetes plus 1 major ASCVD risk factor, treating to a non-HDL-C goal of <100 mg/dL (LDL-C of <70 mg/dL) is considered a therapeutic option. LDL Cholesterol 143(H) mg/dL (calc) [facility] Comment: Reference range: <100 Desirable range <100 mg/dL for primary prevention; <70 mg/dL for patients with CHD or diabetic patients with > or = 2 CHD risk factors. LDL-C is now calculated using the Yessenia calculation, which is a validated novel method providing better accuracy than the Friedewald equation in the estimation of LDL-C. Home HARRIS et al. [place]. 2013;310(19): 0380-0521 (http://education.Air2Web.App.net/faq/JTJ238) HDL Cholesterol 65 > OR = 50 mg/dL [facility] Chol/HDLC Ratio 3.5 <5.0 (calc) [facility] Triglycerides 94 <150 mg/dL [facility] Non-HDL Cholesterol 163(H) <130 mg/dL (calc) [facility] Comment: For patients with diabetes plus 1 major ASCVD risk factor, treating to a non-HDL-C goal of <100 mg/dL (LDL-C of <70 mg/dL) is considered a therapeutic option. Triglycerides 94 <150 mg/dL [facility] HDL Cholesterol 65 > OR = 50 mg/dL [facility] Non-HDL Cholesterol 163(H) <130 mg/dL (calc) [facility] Comment: For patients with diabetes plus 1 major ASCVD risk factor, treating to a non-HDL-C goal of <100 mg/dL (LDL-C of <70 mg/dL) is considered a therapeutic option. Triglycerides 94 <150 mg/dL [facility] Triglycerides 94 <150 mg/dL [facility] Cholesterol, Total 228(H) <200 mg/dL [facility] Cholesterol, Total 228(H) <200 mg/dL [facility] LDL Cholesterol 143(H) mg/dL (calc) [facility] Comment: Reference range: <100 Desirable range <100 mg/dL for primary prevention; <70 mg/dL for patients with CHD or diabetic patients with > or = 2 CHD risk factors. LDL-C is now calculated using the Home-Rascon calculation, which is a validated novel method providing better accuracy than the Friedewald equation in the estimation of LDL-C. Home SS et al. [place]. 2013;310(19): 3650-7488 (http://education.Air2Web.App.net/faq/CGA472) LDL Cholesterol 143(H) mg/dL (calc) [facility] Comment: Reference range: <100 Desirable range <100 mg/dL for primary prevention; <70 mg/dL for patients with CHD or diabetic patients with > or = 2 CHD risk factors. LDL-C is now calculated using the Home-Rascon calculation, which is a validated novel method providing better accuracy than the Friedewald equation in the estimation of LDL-C. Home SS et al. [place]. 2013;310(19): 5721-5560 (http://education.Air2Web.App.net/faq/ARJ057) Chol/HDLC Ratio 3.5 <5.0 (calc) [facility] Triglycerides 94 <150 mg/dL [facility] HDL Cholesterol 65 > OR = 50 mg/dL [facility] HDL Cholesterol 65 > OR = 50 mg/dL [facility] Non-HDL Cholesterol 163(H) <130 mg/dL (calc) [facility] Comment: For patients with diabetes plus 1 major ASCVD risk factor, treating to a non-HDL-C goal of <100 mg/dL (LDL-C of <70 mg/dL) is considered a therapeutic option. Chol/HDLC Ratio 3.5 <5.0 (calc) [facility] Cholesterol, Total 228(H) <200 mg/dL [facility] LDL Cholesterol 143(H) mg/dL (calc) [facility] Comment: Reference range: <100 Desirable range <100 mg/dL for primary prevention; <70 mg/dL for patients with CHD or diabetic patients with > or = 2 CHD risk factors. LDL-C is now calculated using the Home-Rascon calculation, which is a validated novel method providing better accuracy than the Friedewald equation in the estimation of LDL-C. Home SS et al. [place]. 2013;310(19): 2186-9190 (http://education.Air2Web.App.net/faq/FLI996) Chol/HDLC Ratio 3.5 <5.0 (calc) [facility] Cholesterol, Total 228(H) <200 mg/dL [facility] LDL Cholesterol 143(H) mg/dL (calc) [facility] Comment: Reference range: <100 Desirable range <100 mg/dL for primary prevention; <70 mg/dL for patients with CHD or diabetic patients with > or = 2 CHD risk factors. LDL-C is now calculated using the Home-Rascon calculation, which is a validated novel method providing better accuracy than the Friedewald equation in the estimation of LDL-C. Home SS et al. [place]. 2013;310(19): 8568-8304 (http://education.Air2Web.App.net/faq/TZV029) Non-HDL Cholesterol 163(H) <130 mg/dL (calc) [facility] Comment: For patients with diabetes plus 1 major ASCVD risk factor, treating to a non-HDL-C goal of <100 mg/dL (LDL-C of <70 mg/dL) is considered a therapeutic option. 12/20/2019 11:2 3 AM EDT us Juany Hicks MD LAB BLOOD ORDERABLES Final Resul t [facility] [address] from Last 3 Months or Most Recently Relevant to Health Maintenance Insurance [facility] C3 Care Teams Mail Processor Relationship Specialty Start Date End Date Juany Hicks MD [address] [place] [id number] PCP - General Family Medicine 05/03/18
== END 2024-11-01 16:17 | disposition home or self-care (01) ==
LOC: HO.HGI 15:42
PROVIDERS: PCP Family Medicine; Visit Provider Nurse Practitioner
DX: K21.9 Gastro-esophageal reflux disease without esophagitis (principal); K59.00 Constipation, unspecified; D12.6 Benign neoplasm of colon, unspecified; R10.10 Upper abdominal pain, unspecified; R63.4 Abnormal weight loss; D64.9 Anemia, unspecified
CPT/HCPCS: 99213

== ENCOUNTER 2024-11-02 10:17 | Outpatient (REF) | payer MEDICAID, SELFPAY ==
--- OUTSIDE RECORDS SUMMARY | 2024-11-02 10:59 | XMS_ITS | Clinical Summary ---
Author Organization [employer] Address [address] [place] [address] [address] [place] [address] Care Team Providers Care Network Planner Name Role Phone Juany Hicks MD Primary Care Provider [phone] Allergies Active Allergy Reactions Criticality Noted Date Comments Clarithromycin 07/16/2010 Other reaction(s): unspecified Metoclopramide 06/14/2012 Other reaction(s): palpitation, facial numbness Prochlorperazine 06/13/2012 Promethazine 11/22/2023 Medications albuterol 108 (90 Base) MCG/ACT inhaler Inhale. Inhale 2 puffs by inhalation route every 4-5 hours as needed for difficulty breathing 4 times a day Active Blood Pressure Monitoring (Omron 3 Series BP Monitor) device USE DIRECTED DAILY Active topiramate (Topamax) 25 MG tablet Take 1 tablet (25 mg) by mouth Once per day. 90 tablet 3 2025 Active escitalopram (Lexapro) 5 MG tablet Take 1 tablet (5 mg) by mouth Once per day. 90 tablet 3 2024 Active cetirizine (ZyrTEC) 10 MG tabletIndications :Chronic rhinosinusitis Take 1 tablet (10 mg) by mouth Once per day. 90 tablet 3 Active fluticasone (Flonase) 50 MCG/ACT nasal spray Administer 1 spray into each nostril Once per day. Shake gently. Before first use, prime pump. After use, clean tip and replace cap. 16 g Active ferrous sulfate 325 (65 Fe) MG tablet Take 1 tablet (325 mg) by mouth every other day. 45 tablet 3 Active famotidine (Pepcid) 40 MG tablet Take 40 mg by mouth at bedtime. Active pantoprazole (ProtoNix) 40 MG EC tablet Take 40 mg by mouth before breakfast. Do not crush, chew, or split. Active ascorbic acid (Vitamin C) 500 MG tablet take 1 by Oral route 2 times every day 2024 Discontinued(M ed list cleanup (will not trigger notification to Pharmacy)) cholecalciferol (Vitamin D-3) 25 MCG (1000 UT) capsule take 1 by Oral route every day 2024 Discontinued(M ed list cleanup (will not trigger notification to Pharmacy)) ferrous sulfate 325 (65 Fe) MG tablet take 1 Tablet by Oral route 2 times every day 2024 Discontinued(R eorder (will not trigger notification to Pharmacy)) fluticasone (Flonase) 50 MCG/ACT nasal spray spray 1 - 2 spray by intranasal route every day in each nostril as needed 2024 Discontinued(R eorder (will not trigger notification to Pharmacy)) folic acid (Folvite) 800 MCG tablet take 1 tablet by oral route every day 2024 Discontinued(M ed list cleanup (will not trigger notification to Pharmacy)) nicotine (Nicoderm, Step 3) 7 MG/24HR patch apply 1 patch by transdermal route every day 2024 Discontinued(M ed list cleanup (will not trigger notification to Pharmacy)) nicotine polacrilex (Nicorette) 2 MG gum chew 1 piece of gum by oral route every 2 hours as needed and as directed 2024 Discontinued(M ed list cleanup (will not trigger notification to Pharmacy)) omeprazole (PriLOSEC) [address] capsule take 1 capsule by oral route once daily as needed 2024 Discontinued(M ed list cleanup (will not trigger notification to Pharmacy)) SUMAtriptan (Imitrex) 25 MG tablet Take 1 tablet by mouth. 022 2024 Discontinued(M ed list cleanup (will not trigger notification to Pharmacy)) montelukast (Singulair) 10 MG tabletIndications :Chronic rhinosinusitis Take 1 tablet (10 mg) by mouth at bedtime. 90 tablet 3 022 2024 Discontinued(M ed list cleanup (will not trigger notification to Pharmacy)) cetirizine (ZyrTEC) 10 MG tabletIndications :Chronic rhinosinusitis Take 1 tablet (10 mg) by mouth in the morning. 90 tablet 3 022 2024 Discontinued(R eorder (will not trigger notification to Pharmacy)) naproxen (Naprosyn) 500 MG tabletIndications :Acute bilateral low back pain, unspecified whether sciatica present Take 1 tablet (500 mg) by mouth if needed in the morning and at bedtime for mild pain. Take twice daily for 5 days with food, then as needed for pain. Do no take with ibuprofen/advi l or aleve. 30 tablet 1 025 2024 Discontinued(M ed list cleanup (will not trigger notification to Pharmacy)) baclofen (Lioresal) 10 MG tablet Take 1 tablet (10 mg) by mouth if needed in the morning, at noon, and at bedtime for muscle spasms. 60 tablet 1 025 2024 Discontinued(M ed list cleanup (will not trigger notification to Pharmacy)) Diclofenac Sodium 1 % gel Apply 2 g topically if needed in the morning, at noon, in the evening, and at bedtime (pain). 150 g 1 025 2024 Discontinued(M ed list cleanup (will not trigger notification to Pharmacy)) Active Problems Problem Noted Date Diagnosed Date Bruising 11/23/2023 Assessment & Plan (12/10/2023 9:19 AM EDT): Reassuring exam suggestive of superficial eccymosis,healing well, however pt does endorse hx of anemia which is primary concern today, Labs as ordered below Cocaine abuse 11/22/2023 Iron deficiency anemia 11/22/2023 Nondependent cannabis abuse 11/22/2023 Anosmia 04/14/2022 Assessment & Plan (04/14/2022 5:32 [...] sinus CT Refer to ENT Smoking cessation Carpal tunnel syndrome 04/03/2022 Tobacco use disorder 04/03/2022 Assessment & Plan (04/14/2022 5:45 PM EST): < 20 pack years Continue working on lifestyle modifications Lung cancer screening program in few years. Arthritis of facet joint of lumbar spine 021 Allergic rhinitis 06/18/2016 Chronic gastritis 06/18/2016 Mixed anxiety and depressive disorder 12/10/2015 Cervical intraepithelial swapna plasia grade III with severe dysplasia 09/13/2014 Assessment & Plan (11/02/2024 4:58 AM EDT): Followed by [facility] [place] [place] [facility] Hx YOJANA-III LEEP and Cone Bx in 2014 Most recent PAP 09/18/20 NILM with negative high risk HPV Assessment & Plan (04/14/2022 5:44 PM EST): Followed by [facility] [place] [place] [facility] Hx YOJANA-III LEEP and Cone Bx in 2014 Most recent PAP 09/18/20 NILM with negative high risk HPV Abnormal cervical Papanicolaou smear 08/27/2014 Anxiety 08/27/2014 Asthma 08/27/2014 Chronic back pain 08/27/2014 Backache 06/13/2012 Gastroesophageal reflux disease 03/23/2012 Irritable bowel syndrome 03/23/2012 Vitamin D deficiency 03/23/2012 Resolved Problems Problem Noted Date Diagnosed Date Resolved Date Acute exacerbation of chronic low back pain 09/21/2023 11/02/2024 Assessment & Plan (09/21/2023 6:57 PM EDT): Has DJD L-spine, reassurance, advised to avoid lifting weight, constant bending, may need to ask her brother for help with mother's care giving for at least 1w. Toradol injection today, can repeat 30mg IM/d x 5d max Naproxen + Flexeril x 1w then PRN Refer to PT and fu with PCP Palpitation 04/14/2022 11/02/2024 Assessment & Plan (04/14/2022 5:46 PM EST): Holter monitor on 01/06/22 predominantly NSR, rare supraventricular ectopy. Reduce caffeine intake Smoking cessation Consider sleep study Encounters Date Type Department Care Team Description 11/02/2024 9:00 AM EDT Office Visit [facility] [address] [place] [phone] Juany Hicks MD Routine general medical examination at a health care facility (Primary Dx); Elevated BP without diagnosis of hypertension; Cervical intraepithelial neoplasia grade III with severe dysplasia; Iron deficiency anemia, unspecified iron deficiency anemia type; Mixed anxiety and depressive disorder; Gastroesophageal reflux disease, unspecified whether esophagitis present; Vitamin D deficiency; Chronic rhinosinusitis; Allergic rhinitis, unspecified seasonality, unspecified trigger; Tobacco use disorder; Encounter for immunization; Screening for lipid disorders; Screening for diabetes mellitus; Breast cancer screening by mammogram; Mild intermittent asthma without complication 11/02/2024 Travel 11/01/2024 Telephone [facility] [address] [place] [phone] Juany Hicks MD CHART PREP 09/26/2024 Orders Only GENERIC EXTERNAL DATA DEPARTMENT Provider, Generic External Data 08/17/2024 10:00 AM EDT Office Visit [facility] [address] [place] [address] Jurcsak, Betty, DO Acute right-sided low back pain without sciatica (Primary Dx); Elevated BP without diagnosis of hypertension; Acute bilateral low back pain, unspecified whether sciatica present from Last 3 Months Immunizations Immunization Administration Dates Next Due Hep B, adult 11/02/2024 Influenza Injectable Quadriv alant Preservative Free IIV4 MDCK 03/22/2020 Influenza injectable quadriv alent IIV4 with preservative 04/14/2022,2019,01/31/2018,06/03,01/15/2015 Influenza injectable quadriv alent preservative free 06/04/2021,06/18/2016 Influenza, IIV3, injectable 02/04/2010 Influenza, Split (incl. jay fied surface antigen) 02/13/2013,03/23/2012 Moderna Covid-19 Vaccine 12+ 06/04/2021,05/07/19 22 Pneumococcal Conjugate PCV 20 11/02/2024 Pneumococcal Polysaccharide PPSV23 06/13/2012 Tdap 11/05/2018,08/08/2010 Social History Tobacco Use Types Packs/Day Years Used Date Smoking Tobacco: Every Day Cigarettes Passive Smoke Exposure: Never Tobacco Cessation:Ready to Q uit: Not Asked; Counseling Given: Not Answered Alcohol Use Standard Drinks/Week Comments Never 0 (1 standard drink = 0.6 oz pur e alcohol) Depression Answer Date Recorded Patient Health Questionnaire-9 Score 16 11/02/2024 Patient Health Questionnaire-9 Score 16 11/02/2024 Last PHQ-9: Questionnaire Data Not on file 0 11/02/2024 Housing Stability Answer Date Recorded What is your housing situation today? I have nae man 11/02/[address] you li ve. Do you have problems with any of the following? None of the above 11/02/2024 Food Insecurity Answer Date Recorded Within the past 12 months, y ou worried that your food would run out before you got money to buy more: Never True 11/02/2024 Within the past 12 months,th e food you bought just didn't last and you didn't have enough money to get more: Never True 07/2024 Transportation Answer Date Recorded In the past 12 months, has l ack of transportation kept you from medical appts, meetings, work or from getting things needed for daily living? No 11/02/2024 Depression Answer Date Recorded Patient Health Questionnaire-2 Score 5 11/02/2024 Internet Access Answer Date Recorded Internet Access Q1 Yes 11/02/2024 Internet Access Q2 Not on file 11/02/2024 Comments Unknown Sex and Gender Information Value Date Recorded Sex Assigned at Female 03/02/2022 10:16 AM EDT Legal Sex Female 10:16 AM EDT Gender Identity Female 03/02/2022 10:16 AM EDT Sexual Orientation Straight 03/02/2022 10 :16 AM EDT Last Filed Vital Signs Vital Sign Reading Time Taken Comments Blood Pressure 130/80 11/02/2024 9:12 AM EDT Pulse 86 11/02/2024 9:12 AM EDT Temperature 36.1 C (96.9 F) 11/02/2024 9:12 AM EDT Respiratory Rate 18 11/02/2024 9:12 AM EDT Oxygen Saturation 100% 11/02/2024 9:12 AM EDT Inhaled Oxygen Concentration - - Weight 55.2 kg (121 lb 9.6 oz) 11/02/2024 9:12 A M EDT Height 153 cm (5' 0.24 ) 11/02/2024 9:12 AM EDT Body Mass Index 23.56 11/02/2024 9:12 AM EDT Plan of Treatment Health Maintenance Due Date Last Done Comments CT Colonography 1975 FIT DNA/Cologuard 1975 FIT 1975 FOBT 1975 SDOH Screening 1975 Sigmoidoscopy 1975 Family Planning (PISQ) 02/05/1991 Mammogram 09/16/2022 09/16/2020, 10/06/2017 COVID-19 Vaccine ( season) 2024 06/04/2021, 05/07/2021 Hepatitis B Vaccines (2 of 3 - 19+ 3-dose series) 11/30/2024 11/02/2024 Lipid Panel 12/19/2024 12/20/2019 Influenza Vaccine (#1) 2025 , 06/04/2021, 03/22/2020, Additional history exists Depression Monitoring 05/05/2025 11/02/2024, 025 Cervical Cancer Screening 09/18/2025 HPV/Cotest 09/18/2025 09/18/2020 Pap Smear 09/18/2025 09/18/2020 Alcohol/Substance Use Screening 11/02/2025 11/02/2024 Disability Screening 11/02/2025 11/02/2024 Tobacco Screening 11/02/2025 11/02/2024 Zoster Vaccines (1 of 2) 02/05/2026 Colonoscopy 10/31/2027 10/30/2022 Colorectal Cancer Screening 10/31/2027 DTaP/Tdap/Td Vaccines (3 - Td or Tdap) 11/05/2028 11/05/2018, 08/08/2010 RSV Patients and Patients Aged 60 years or older (1 - 1-dose 75+ series) 02/05/2051 HIV Screening Completed 12/20/2019 Hepatitis C Screening Completed 12/20/2019 Pneumococcal Vaccine: Pediatrics (0 to 5 Years) and At-Risk Patients (6 to 49) Years Completed 11/02/2024, 06/13/2012 HIB Vaccines Aged Out No longer eligi [...] Procedure Name Priority Date/Time Associated Diagnosis Comments TSH W/REFLEX TO FT4 Routine 11/01/2024 4 :27 PM EDT FERRITIN Routine 11/01/2024 4:27 PM EDT URINALYSIS, COMPLETE, WITH REFLEX TO CULTURE Routine 11/01/2024 4:23 PM EDT FL ESOPHAGUS BARIUM SWALLOW Routine 10/03/2024 9:00 [...] Recently Relevant to Health Maintenance Results * TSH with Reflex to Free T4 (11/01/2024 4:27 PM EDT) TSH reflex Free T4 1.82 0.32 - 4.0 uIU/mL [facility] 11/01/2024 4:27 PM EDT 11/01/2024 4:28 PM EDT us Generic External Data Provider LAB BLOOD ORDERAB LES Final Result [facility] [address] [place] [phone] * (ABNORMAL) Ferritin (11/01/2024 4:27 PM EDT) Ferritin 7(L) 10 - 250 ng/mL [facility] 11/01/2024 4:27 PM EDT 11/01/2024 4:28 PM EDT Generic External Data Provider LAB BLOOD ORDERAB LES Final Result Performing Organization Address [facility] Co de Phone Number [facility] [address] [place] [address] [phone] * (ABNORMAL) Urinalysis, Complete, with Reflex to Culture (11/01/2024 4:23 PM EDT) Color Urine Yellow [facility] Appearance Urine Clear [facility] PH 6.5 5.0 - 9.0 [facility] Glucose Urine UA Negative Negative mg/dL [facility] Urine Blood Negative Negative [facility] Specific Alpine - Urine 1.010 1.005 - 1.025 [facility] Urine Protein Negative Neg-Trace mg/dL [facility] Urine Ketones Negative Negative mg/dL [facility] Nitrite Urine Negative Negative [facility] Leukocyte Esterase Urine Trace(A) Negative [facility] RBC Urine 0-2 0 - 2 /HPF [facility] Urine WBC 6-10(A) 0 - 5 /HPF [facility] Urine Squamous Epithelial Cell 6-10 0 - 2 /HPF [facility] Urine Bacteria 1+ None Seen [facility] Hyaline Casts, Urine 0-2 0 - 2 /LPF [facility] 11/01/2024 4:23 PM EDT 11/01/2024 5:03 PM EDT Narrative [facility] - 11/01/2024 5:32 PM EDT [id number], Clean Catch Generic External Data Provider LAB URINE ORDERAB LES Final Result Performing Organization Address [facility]/ZIP Co de Phone Number [facility] [address] [place] [address] [phone] * FL Esophagus Barium Swallow (10/03/2024 9:00 AM EDT) Anatomical Region Laterality Modality Head, Neck Radiographic Yudi ging 10/03/2024 9:00 AM EDT Narrative 10/03/2024 11:47 AM EDT [address] [address] Fluoroscopy Report Signed Patient: Lucas Brown MR#: [id number] : 1975 Acct:[id number] Age/Sex: 49 / F ADM Date: 10/03/24 Loc: HO.XRAY Attending Dr: Fanta GANDHI Ordering Physician: Fanta Osuna Date of Service: 10/03/24 Procedure(s): FL barium swallow Accession Number(s): [id number] cc: Fanta Osuna; Juany Hicks MD EXAMINATION: [...] 10/03/24 1144 DD/ 0900 TD/TT: 10/03/24 0930 Industrial Energy Engineer: [facility] Note Donotuseinterpreter, Image - 10/03/[address] [place] [address] Fluoroscopy Report Signed Patient: Kellen Brown#: [id number] : 1975Acct:[id number] Age/Sex: 49 / FADM Date: 10/03/24 Loc: HO.XRAY Attending Dr: Fanta GANDHI Ordering Physician: Fanta Osuna Date of Service: 10/03/24 Procedure(s): FL barium swallow Accession Number(s): [id number] cc: Fanta Osuna; Juany Hicks MD EXAMINATION: [...] 10/03/24 1144 DD/ 0900 TD/TT: 10/03/24 0930 Industrial Energy Engineer: [facility] External Provider IMG FLU OROSCOPY PROCEDURES Final Result * (ABNORMAL) CBC auto differential (09/26/2024 11:52 AM EDT) White Blood Count 5.1 4.8 - 10.8 X10*3/uL [facility] Red Blood Count 4.10(L) 4.20 - 5.50 X10*6/uL [facility] Hemoglobin 11.7(L) 12.0 - 16.0 g/dl [facility] Hematocrit 36.3(L) 37.0 - 47.0 % [facility] Mean Corpuscular Volume 88.5 80.0 - 98.0 fL [facility] Mean Corpuscular Hemoglobin 28.5 27.0 - 33.0 pg [facility] Mean Corpuscular HGB Conc 32.2 31.0 - 35.0 g/dl [facility] Red Cell Distribution Width 15.4 11.0 - 16.0 % [facility] Platelet Count 259 160 - 400 X10*3/uL [facility] Mean Platelet Volume 11.2 9.4 - 12.3 fL [facility] Neutrophils Percent Auto 60.7 45 - 73 % [facility] Imm Gran Pct Auto 0.4 0.0 - 0.4 % [facility] Lymphocytes Percent Auto 29.9 20 - 40 % [facility] Monocytes Percent Auto 7.8 2 - 11 % [facility] Eosinophils Percent Auto 0.6 0 - 4 % [facility] Basophils Percent Auto 0.6 0 - 2 % [facility] NRBC Pct Auto 0.0 0.0 - 0.2 /100WBC [facility] Neutrophils Absolute Auto 3.1 2.0 - 8.3 x10*3/uL [facility] Imm Gran Abs Auto 0.02 0.00 - 0.03 X10*3/uL [facility] Lymphocytes Absolute Auto 1.5 1.2 - 4.9 X10*3/uL [facility] Monocytes Absolute Auto 0.4 0.1 - 1.2 X10*3/uL [facility] Eosinophils Absolute Auto 0.0 0.0 - 0.4 X10*3/uL [facility] Basophils Absolute Auto 0.0 0.0 - 0.2 X10*3/uL [facility] NRBC Abs Auto 0.000 0.0 - 0.012 X10*3/uL [facility] 09/26/2024 11:5 2 AM EDT 09/26/2024 11:52 AM EDT us Generic External Data Provider LAB BLOOD ORDERAB LES Final Result [facility] [address] [place] [address] [phone] * (ABNORMAL) Comprehensive Metabolic Panel (09/26/2024 11:52 AM EDT) Sodium 138 135 - 145 mmol/L [facility] Potassium 4.0 3.3 - 5.1 mmol/L [facility] Chloride 107 96 - 108 mmol/L [facility] Carbon Dioxide 24 22 - 29 mmol/L [facility] Anion Gap 11(L) 12 - 20 [facility] Urea Nitrogen (BUN) 12 9 - 16 mg/dL [facility] Creatinine, Serum 0.69 0.5 - 1.4 mg/dL [facility] Estimated Glomerular Filt Rate >60 [facility] Comment:Chronic Kidney Disea se: Estimated GFR < 60 mL/min/1.30g8Tgtppy Kidney Disease: Estimated GFR < 15 mL/min/1.73m2 Glucose 88 60 - 115 mg/dL [facility] Calcium 9.4 8.4 - 10.2 mg/dL [facility] Bilirubin, Total 0.2 0.0 - 1.0 mg/dL [facility] Aspartate Amino Transferase 28 5 - 31 U/L [facility] Alanine Aminotransferase 22 0 - 31 U/L [facility] Total Protein 7.6 6.5 - 8.0 g/dL [facility] Albumin Level 4.4 3.5 - 5.0 g/dL [facility] Alkaline Phosphatase 70 39 - 117 U/L [facility] 09/26/2024 11:5 2 AM EDT 09/26/2024 11:52 AM EDT us Generic External Data Provider LAB BLOOD ORDERAB LES Final Result [facility] [address] [place] [address] [phone] * (ABNORMAL) Hm Colonoscopy (10/30/2022) Colonoscopy [...] along with historic and current clinical information. Printer Operator : SEE COMMENT [facility] Comment: MXD, CT (ASCP) CT screening location: [place] [address] Infection Shift in vaginal aster suggestive of bacterial vaginosis. [facility] Interpretation/R esult: Negative for intraepithelial lesion or malignancy. [facility] LMP: NONE [facility]IVEN [facility] Prev. BX: NONE [facility]IV[facility] Prev. PAP: NONE [facility]IV[facility] SOURCE: None given [facility] Statement Of Adequacy: SEE COMMENT [facility] Comment: Satisfactory for evaluation. Endocervical/transformation zone component absent. Age and/or menstrual status not provided 09/18/2020 4:28 PM EDT Paula Culp NP LAB PATHOLOGY ORDERABLES Final Result [facility] [address] [place], [place] [address] * HPV GENOTYPES 16,18/45 (09/18/2020 4:28 PM EDT) HPV 16 RNA NOT DETECTED NOT DETECTED [facility] HPV 18/45 RNA NOT DETECTED NOT DETECTED [facility] Comment: Methodology: Cable Hooker Mediated Amplification The analytical performance characteristics of this assay have been determined by [employer]. The modifications have not been cleared or approved by the FDA. This assay has been validated pursuant to the CLIA regulations and is used for clinical purposes. 09/18/2020 4:28 PM EDT Paula Culp ASSIGNER LAB CYTOLOGY ORDERABLES Final R esult [facility] [address] * Mammography Report 1 (09/16/2020 10:30 [...] HEPATITIS C ANTIBODY NON-REACT DIAMOND NON-REACT DIAMOND [facility] INDEX 0.02 <1.00 [facility] Comment: HCV antibody was non-reactive. There is no laboratory evidence of HCV infection. In most cases, no further action is required. However, if recent HCV exposure is suspected, a test for HCV RNA (test code 44928) is suggested. For additional information please refer to http://education.[employer]/faq/BGY26r9 (This link is being provided for informational/ educational purposes only.) HEPATITIS C ANTIBODY NON-REACT DIAMOND NON-REACT DIAMOND [facility] INDEX 0.02 <1.00 [facility] Comment: HCV antibody was non-reactive. There is no laboratory evidence of HCV infection. In most cases, no further action is required. However, if recent HCV exposure is suspected, a test for HCV RNA (test code 07065) is suggested. For additional information please refer to http://DeviceAuthority.[email or web address]/faq/GMS60x1 (This link is being provided for informational/ educational purposes only.) HEPATITIS C ANTIBODY NON-REACT DIAMOND NON-REACT DIAMOND [facility] INDEX 0.02 <1.00 [facility] Comment: HCV antibody was non-reactive. There is no laboratory evidence of HCV infection. In most cases, no further action is required. However, if recent HCV exposure is suspected, a test for HCV RNA (test code 45426) is suggested. For additional information please refer to http://DeviceAuthor[email or web address]/faq/DGA39m9 (This link is being provided for informational/ educational purposes only.) HEPATITIS C ANTIBODY NON-REACT DIAMOND NON-REACT DIAMOND [facility] INDEX 0.02 <1.00 [facility] Comment: HCV antibody was non-reactive. There is no laboratory evidence of HCV infection. In most cases, no further action is required. However, if recent HCV exposure is suspected, a test for HCV RNA (test code 49797) is suggested. For additional information please refer to http://DeviceAuthority.[email or web address]/faq/LCF06j5 (This link is being provided for informational/ educational purposes only.) 12/20/2019 11:2 3 AM EDT Juany Hicks MD HISTORICAL/NON ORDERABLE LABS Fi nal Result [facility] [address] * HIV 1/2 ANTIGEN/ANTIBODY,FOURTH GENERATION W/RFL (12/20/2019 11:23 AM EDT) HIV-1/2 ANTIGEN AND ANTIBODIES, 4TH GENERATION W/ REFLEX NON-REACT DIAMOND NON-REACT DIAMOND [facility] Comment: HIV-1 antigen and HIV-1/HIV-2 [...] purpose. For additional information please refer to http://DeviceAuthority.[email or web address]/faq/OHO437 (This link is being provided for informational/ educational purposes only.) The performance of this assay has not been clinically validated in patients less than 2 years old. HIV-1/2 ANTIGEN AND ANTIBODIES, 4TH GENERATION W/ REFLEX NON-REACT DIAMOND NON-REACT DIAMOND [facility] Comment: HIV-1 antigen and HIV-1/HIV-2 [...] purpose. For additional information please refer to http://[employer]/faq/ATK065 (This link is being provided for informational/ educational purposes only.) The performance of this assay has not been clinically validated in patients less than 2 years old. HIV-1/2 ANTIGEN AND ANTIBODIES, 4TH GENERATION W/ REFLEX NON-REACT DIAMOND NON-REACT DIAMOND [facility] Comment: HIV-1 antigen and HIV-1/HIV-2 [...] purpose. For additional information please refer to http://DeviceAuthority.SHOP.COM/faq/JBT914 (This link is being provided for informational/ educational purposes only.) The performance of this assay has not been clinically validated in patients less than 2 years old. HIV-1/2 ANTIGEN AND ANTIBODIES, 4TH GENERATION W/ REFLEX NON-REACT DIAMOND NON-REACT DIAMOND [facility] Comment: HIV-1 antigen and HIV-1/HIV-2 [...] purpose. For additional information please refer to http://education.SHOP.COM/faq/IAP115 (This link is being provided for informational/ educational purposes only.) The performance of this assay has not been clinically validated in patients less than 2 years old. 12/20/2019 11:2 3 AM EDT Juany Hicks MD LAB BLOOD ORDERABLES Final Resul t [facility] [address] * (ABNORMAL) LIPID PANEL, STANDARD (12/20/2019 [...] therapeutic option. LDL Cholesterol 143(H) mg/dL (calc) [facility] Comment: Reference range: <100 Desirable range <100 mg/dL for primary prevention; <70 mg/dL for patients with CHD or diabetic patients with > or = 2 CHD risk factors. LDL-C is now calculated using the Yessenia calculation, which is a validated novel method providing better accuracy than the Friedewald equation in the estimation of LDL-C. Home HARRIS et al. [place]. 2013;310(19): 6407-1640 (http://education.Metaresolver.Flint [employer] Tinder/faq/ULC177) HDL Cholesterol 65 > OR = 50 [...] LDL-C. Home HARRIS et al. [place]. 2013;310(19): 0140-6143 (http://education.Metaresolver.Flint [employer] Tinder/faq/AZA991) LDL Cholesterol 143(H) mg/dL (calc) [facility] [...] LDL-C. Home SS et al. [place]. 2013;310(19): 4744-4528 (http://education.Metaresolver.Flint [employer] Tinder/faq/NQW248) Chol/HDLC Ratio 3.5 <5.0 (calc) [facility] [...] LDL-C. Home SS et al. [place]. 2013;310(19): 5676-3754 (http://education.Metaresolver.[employer] Tinder/faq/JMC821) Chol/HDLC Ratio 3.5 <5.0 (calc) [facility] [...] LDL-C. Home SS et al. [place]. 2013;310(19): 6746-5430 (http://education.Metaresolver.[employer] Tinder/faq/AKY528) Non-HDL Cholesterol 163(H) <130 mg/dL (calc) [facility] Comment: For patients with diabetes plus 1 major ASCVD risk factor, treating to a non-HDL-C goal of <100 mg/dL (LDL-C of <70 mg/dL) is considered a therapeutic option. 12/20/2019 11:2 3 AM EDT us Juany Hicks MD LAB BLOOD ORDERABLES Final Resul t [facility] [address] from Last 3 Months or Most Recently Relevant to Health Maintenance Insurance [facility] [employer] Care Teams Network Planner Relationship Specialty Start Date End Date Juany Hicks MD [address] [place] [id number] PCP - General Family Medicine 05/03/18
[2024-11-02 11:15] LABS: Appearance Urine Clear; Glucose Urine UA Negative (Negative); PH 6.0 (5.0-9.0); Specific Gravity - Urine 1.010 (1.005-1.025)
[2024-11-02 11:25] LABS: Iron 47 mcg/dL (30-160); Percent Iron Saturation 14 % (15-50); Total Iron Binding Capacity 335 mcg/dL (228-428); Unsaturated Iron Binding 288 ug/dL
[2024-11-02 11:33] LABS: Cholesterol 231 mg/dL (<200); HDL Cholesterol 68 mg/dL (>40); Triglycerides 80 mg/dL (<150)
[2024-11-02 11:36] LABS: Reflex LDLD? No
[2024-11-02 11:44] LABS: Hemoglobin A1C 97.9854 umol/L; Total Hemoglobin (HGBA1C) 3113.7096 umol/L
[2024-11-02 12:17] LABS: Folate 8.0 ng/mL (> or = 4.0); Vitamin B12 524 pg/mL (200-900)
== END 2024-11-02 10:18 | disposition home or self-care (01) ==
LOC: HO.10HDLNP 10:17
PROVIDERS: Nurse Practitioner; Nurse Practitioner Family; PCP Family Medicine; Visit Provider Family Medicine
DX: Z13.21 Encounter for screening for nutritional disorder (principal); Z13.1 Encounter for screening for diabetes mellitus; Z13.220 Encounter for screening for lipoid disorders
CPT/HCPCS: 80061; 81003; 82306; 82607; 82746; 83036; 83540

== ENCOUNTER 2024-11-16 15:13 | Outpatient (REF) | payer MEDICAID, SELFPAY ==
--- OUTSIDE RECORDS SUMMARY | 2024-11-16 15:56 | XMS_ITS | Clinical Summary ---
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
--- OUTSIDE RECORDS SUMMARY | 2024-11-16 15:56 | XMS_ITS | Clinical Summary ---
Author Organization [employer] Address [address] [place] [address] [address] [place] [address] Care Team Providers Care Regional Sales Associate Name Role Phone Juany Hicks MD Primary Care Provider [phone] Mart De La Fuente RN Unavailable [phone] Kylie Frey Unavailable Unavailable Allergies Active Allergy Reactions Criticality Noted Date Comments Clarithromycin 07/16/2010 Other reaction(s): unspecified Metoclopramide 06/14/2012 Other reaction(s): palpitation, facial numbness Prochlorperazine 06/13/2012 Promethazine 11/22/2023 Medications * This document contains information received from the source organization and may not represent a complete record from that organization. topiramate (Topamax) 25 MG tablet Take 1 tablet (25 mg) by mouth Once per day. 90 tablet 025 2025 Active escitalopram (Lexapro) 5 MG tablet Take 1 tablet (5 mg) by mouth Once per day. 90 tablet 025 2024 Active cetirizine (ZyrTEC) 10 MG tabletIndications :Chronic rhinosinusitis Take 1 tablet (10 mg) by mouth Once per day. 90 tablet 3 Active fluticasone (Flonase) 50 MCG/ACT nasal spray Administer 1 spray into each nostril Once per day. Shake gently. Before first use, prime pump. After use, clean tip and replace cap. 16 g 11 Active ferrous sulfate 325 (65 Fe) MG [...] MG tablet Take 1 tablet by mouth. 2024 Discontinued(M ed list cleanup (will not trigger notification to Pharmacy)) albuterol 108 (90 Base) MCG/ACT inhaler Inhale. Inhale 2 puffs by inhalation route every 4-5 hours as needed for difficulty breathing 4 times a day 2024 Discontinued(M ed list cleanup (will not trigger notification to Pharmacy)) Blood Pressure Monitoring (Omron 3 Series BP Monitor) device USE DIRECTED DAILY 2024 Discontinued(M ed list cleanup (will not trigger notification to Pharmacy)) montelukast (Singulair) 10 MG tabletIndications :Chronic rhinosinusitis Take 1 tablet (10 mg) by mouth at bedtime. 90 tablet 3 2024 Discontinued(M ed list cleanup (will not trigger notification to Pharmacy)) cetirizine (ZyrTEC) 10 MG tabletIndications :Chronic rhinosinusitis Take 1 tablet (10 mg) by mouth in the morning. 90 tablet 3 2024 Discontinued(R eorder (will not trigger notification [...] ibuprofen/advi l or aleve. 30 tablet 1 2024 Discontinued(M ed list cleanup (will not trigger notification to Pharmacy)) baclofen (Lioresal) 10 MG tablet Take 1 tablet (10 mg) by mouth if needed in the morning, at noon, and at bedtime for muscle spasms. 60 tablet 1 2024 Discontinued(M ed list cleanup (will not trigger notification to Pharmacy)) Diclofenac Sodium 1 % gel Apply 2 g topically if needed in the morning, at noon, in the evening, and at bedtime (pain). 150 g 1 2024 Discontinued(M ed list cleanup (will not trigger notification to Pharmacy)) Active Problems Problem Noted Date Diagnosed Date Headache 11/16/2024 Assessment & Plan (11/16/2024 5:29 AM EDT): - Multifactorial: Tension; sinus; possibly migraine - Optimize treatment for allergic rhinitis. Referred back to ENT. - Work on stress reduction - Start [id number] mg every morning Tubular adenoma of colon 11/16/2024 Assessment & Plan (11/16/2024 5:38 AM EDT): - Colonoscopy on 10/30/2022. [facility] Tubular adenoma. 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 mother - Patient does not have her own time - Patient has depressive symptoms- - Will start pharmacological treatment for depression - Patient declined BHS PRISCILLA (generalized anxiety disorder) 11/02/2024 Iron deficiency anemia 11/22/2023 Assessment & Plan (11/16/2024 5:51 AM EDT): - restart iron supplementation - well-balanced diet - recheck CBC in 3 mo Nondependent cannabis abuse 11/22/2023 Anosmia 04/14/2022 Assessment [...] dysgeusia Chronic rhinosinusitis 04/14/2022 Assessment & Plan (11/16/2024 5:30 AM EDT): - Sinus CT scan on 04/20/2022: Mild bilateral ethmoid mucosal thickening and opacification of the left sphenoid ethmoidal recess. Mild mucosal thickening in the left sphenoid sinus. Trace mucosal thickening in the right maxillary sinus. No fluid levels. Leftward deviation of the nasal septum. - Previously on montelukast, cetirizine, and Flonase - Restart the cetirizine and Flonase - Referral back to ENT Assessment & Plan (04/14/2022 5:39 PM EST): Restart cetirizine and montelukast Evaluate with sinus CT Refer to ENT Smoking cessation Carpal tunnel syndrome 04/03/2022 Tobacco use disorder 04/03/2022 Assessment & Plan (11/05/2024 7:59 AM EDT): < 20 pack years Continue working on lifestyle modifications Lung cancer screening program in few years. Assessment & Plan (04/14/2022 5:45 PM EST): < 20 pack years Continue working on lifestyle modifications Lung cancer screening program in few years. Arthritis of facet joint of lumbar spine 021 Allergic rhinitis 06/18/2016 Assessment & Plan (11/16/2024 5:31 AM EDT): Previously on montelukast, fluticasone nasal, and cetirizine Check CBC with differential for eosinophil count Restart fluticasone nasal and cetirizine Chronic gastritis 06/18/2016 Mixed anxiety and depressive disorder 12/10/2015 Assessment & Plan (11/16/2024 5:46 AM EDT): - PHQ-9 score 16; PRISCILLA-7 score 21 on 11/02/2024 - Start escitalopram 5 mg daily; may increase to 10 mg daily - Work on stress reduction. Cervical intraepithelial swapna plasia grade III with severe dysplasia 09/13/2014 Assessment & Plan (11/02/2024 4:58 AM EDT): Followed by [facility] Hx YOJANA-III LEEP and Cone Bx in 2014 Most recent PAP 09/18/20 NILM with negative high risk HPV Assessment & Plan (04/14/2022 5:44 PM EST): Followed by [facility] Hx YOJANA-III LEEP and Cone Bx in 2015 Most recent PAP 09/18/20 NILM with negative high risk HPV History of cervical dysplasia 08/27/2014 Assessment & Plan (11/16/2024 5:40 AM EDT): Followed by [facility] Hx YOJANA-III LEEP and Cone Bx in 2014 Most recent PAP 09/18/20 NILM with negative high risk HPV Anxiety 08/27/2014 Asthma 08/27/2014 Chronic back pain 08/27/2014 Backache 06/13/2012 Gastroesophageal reflux disease 03/23/2012 Assessment & Plan (11/16/2024 5:37 AM EDT): - Following with [facility], recommended to take pantoprazole and famotidine - Patient states that she has been taking pantoprazole only Irritable bowel syndrome 03/23/2012 Assessment & Plan (11/16/2024 5:36 AM EDT): - Following with [facility], last seen on 11/01/2024 - Continue pantoprazole Vitamin D deficiency 03/23/2012 Resolved Problems Problem Noted Date Diagnosed Date Resolved Date Cocaine abuse 11/22/2023 11/16/2024 Acute exacerbation of chronic low back pain [...] intake Smoking cessation Consider sleep study Encounters * This document contains information received from the source organization and may not represent a complete record from that organization. Date Type Department Care Team Description 11/16/2024 Orders Only [facility] [place] [address] Juany Hicks MD Iron deficiency anemia, unspecified iron deficiency anemia type (Primary Dx) 11/06/[address] [address] Juany Hicks MD Care Coordination (C3- chart review) 11/06/[address] [address] Juany Hicks MD 11/02/2024 9:00 AM EDT Office Visit [address] [address] Juany Hicks MD Routine general medical examination at a health care facility (Primary Dx); Elevated BP without diagnosis of hypertension; Iron deficiency anemia, unspecified iron deficiency anemia type; Mixed anxiety and depressive disorder; Gastroesophageal reflux disease, unspecified whether esophagitis present; Vitamin D deficiency; Chronic rhinosinusitis; Allergic rhinitis, unspecified seasonality, unspecified trigger; Tobacco use disorder; Encounter for immunization; Screening for lipid disorders; Screening for diabetes mellitus; Breast cancer screening by mammogram; Mild intermittent asthma without complication; Anosmia; Ageusia; Chronic nonintractable headache, unspecified headache type; Irritable bowel syndrome, unspecified type; Tubular adenoma of colon; History of cervical dysplasia; Caregiver stress 11/02/2024 Travel 11/01/[address] [address] Juany Hicks MD CHART PREP 09/26/2024 Orders Only GENERIC EXTERNAL DATA DEPARTMENT Provider, Generic External Data 08/17/2024 10:00 AM EDT Office Visit [facility] [address] [address] Betty Houser DO Acute right-sided low back [...] is your housing situation today? I have naenallely man 11/02/[address] you [...] 3 - 19+ 3-dose series) 11/30/2024 11/02/2024 Influenza Vaccine (#1) 2025 , 06/04/2021, 03/22/2020, Additional history exists Depression Monitoring 05/05/2025 11/02/2024, 025 Cervical Cancer Screening 09/18/2025 HPV/Cotest 09/18/2025 09/18/2020 Pap Smear 09/18/2025 09/18/2020 Alcohol/Substance Use Screening 11/02/2025 11/02/2024 Disability Screening 11/02/2025 11/02/2024 Tobacco Screening 11/02/2025 11/02/2024 Zoster Vaccines (1 of 2) 02/05/2026 Colonoscopy 10/31/2027 10/30/2022 Colorectal Cancer Screening 10/31/2027 DTaP/Tdap/Td Vaccines (3 - Td or Tdap) 11/05/2028 11/05/2018, 08/08/2010 Lipid Panel 11/02/2029 11/02/2024, 12/20/2019 RSV Patients and Patients Aged 60 years [...] Procedure Name Priority Date/Time Associated Diagnosis Comments URINALYSIS WITH REFLEX MICROSCOPIC Routine 11/02/2024 10:22 AM EDT VITAMIN B12/FOLATE, SERUM PANEL Routine 11/02/2024 10:22 AM EDT Iron deficiency anemia, unspecified iron deficiency anemia type VITAMIN D,25-OH,TOTAL,IA Routine 11/02/2024 10:22 AM EDT Vitamin D deficiency HEMOGLOBIN A1C Routine 11/02/2024 10:22 AM EDT Screening for diabetes mellitus LIPID PANEL WITH REFLEX TO DIRECT LDL Routine 11/02/2024 10:22 AM EDT Screening for lipid disorders IRON AND TOTAL IRON BINDING CAPACITY Routine 11/02/2024 10:22 AM EDT Bruising TSH W/REFLEX TO FT4 Routine 11/01/2024 4 :27 PM EDT FERRITIN Routine 11/01/2024 4:27 PM EDT URINALYSIS, COMPLETE, WITH REFLEX TO CULTURE Routine 11/01/2024 4:23 PM EDT CULTURE, URINE, ROUTINE Routine 11/01/2024 12:00 AM EDT FL ESOPHAGUS BARIUM SWALLOW Routine 10/03/2024 [...] GENERATION W/RFL Routine 12/20/2019 11:23 AM EDT from Last 3 Months or Most Recently Relevant to Health Maintenance Results * (ABNORMAL) Vitamin D, 25-Hydroxy, Total, Immunoassay (11/02/2024 10:22 AM EDT) Vitamin D 25-OH Total 27.1(L) >30 ng/mL [facility] Comment: Health Based Reference Values*< 20 ng/mL Wtizkqimw01-77 ng/mL Insufficient> 30 ng/mL Sufficient*Artie RIVERA. N Engl J Med. 2007;357:266-280There is no well-established upper level of normal vitamin Dlevels. Some laboratories use 50 ng/mL as an upper limit ofnormal. However, toxicity is patient-dependent and may occurat any level. Careful correlation with the patient'spresentation is necessary and, if there is concern forvitamin D toxicity, treatment should be consideredirrespective of the serum level.Care must be taken in interpreting Vitamin D results fromdifferent laboratories and methodologies. Published datademonstrated that results from patients undergoinghemodialysis may show a negative bias when tested withvarious automated 25-OH vitamin D assays when compared toLC-MS/MS.When testing samples from patients whose predominant form ofVitamin D is Vitamin D2, such as patients receiving VitaminD2 supplementation, results that are subtherapeutic shouldbe confirmed with another method such as LC-MS/MS. Blood Venous blood specimen / Unknown 11/02/2024 10:22 AM EDT 11/02/2024 11:02 AM EDT us Juany Hicks MD LAB BLOOD ORDERABLES Final Resul t [facility] [address] [place] [phone] * Vitamin B12 (Cobalamin) and Folate Panel, Serum (11/02/2024 10:22 AM EDT) Vitamin B12 524 200 - 900 pg/mL [facility] Comment:NORMAL 200-900 PG/ML INDETERMINATE 160-199 PG/ML DEFICIENT < 160 PG/ML Folate 8.0 > or = 4.0 ng/mL [facility] Comment:Reference Values:> o r = 4.0 ng/mL< 4.0 ng/mL suggests folate deficiency Methotrexate, aminopterin and folinic acid(leucovorin) are chemotherapeutic agents whose molecularstructures are similar to folate; therefore, the Architectfolate assay cannot be used for patients using these drugs. Blood 11/02/2024 10:2 2 AM EDT 11/02/2024 11:02 AM EDT us Juany Hicks MD LAB BLOOD ORDERABLES Final Resul t Performing Organization Address [facility] Co de Phone Number [facility] [address] [place] [phone] * (ABNORMAL) Lipid Panel with Reflex to Direct LDL (11/02/2024 10:22 AM EDT) Triglycerides 80 <150 mg/dL [facility] Comment:Desirable Triglyceri de: less than 150 mg/dLBorderline High Triglyceride 150-199 mg/dLHigh Triglyceride: 200-499 mg/dLVery High Triglyceride: greater than or equal to 5OO mg/dL Cholesterol 231(H) <200 mg/dL [facility] Comment:Desirable Cholestero l: less than 200 mg/dLBorderline High Cholesterol: 200-239 mg/dLHigh Cholesterol: greater than 239 mg/dL LDL Cholesterol Calculated 147(H) <100 mg/dL [facility] Comment:Desirable LDL: less than 100 mg/dLNear Optimal/Above Optimal LDL: 110- 129 mg/dLBorderline High LDL: 130-159 mg/dLHigh LDL: 160-189 mg/dLVery High LDL: greater than or equal to 190 mg/dL HDL Cholesterol 68 >40 mg/dL [facility] Comment:Desirable HDL: great er than 40 mg/dL Note: This HDL assay may give artificially low results in patients with liver disease. Blood 11/02/2024 10:2 2 AM EDT 11/02/2024 11:02 AM EDT us Juany Hicks MD LAB BLOOD ORDERABLES Final Resul t Performing Organization Address [facility]/ZIP Co de Phone Number [facility] [address] [place] [phone] * (ABNORMAL) Iron And Total Iron Binding Capacity (11/02/2024 10:22 AM EDT) Iron 47 30 - 160 mcg/dL [facility] Total Iron Binding Capacity 335 228 - 428 mcg/dL [facility] Percent Iron Saturation 14(L) 15 - 50 % [facility] Unsaturated Iron Binding 288 ug/dL [facility] Blood Venous blood specimen / Unknown 11/02/2024 10:22 AM EDT 11/02/2024 11:02 AM EDT us Laura Durant AUTOMATION DEVELOPER LAB BLOOD ORDERABLES Final Resul t Performing Organization Address [facility]/ZIP Co de Phone Number [facility] [address] [place] [phone] * Urinalysis w/reflex microscopic (11/02/2024 10:22 AM EDT) Color Urine Yellow [facility] Appearance Urine Clear [facility] PH 6.0 5.0 - 9.0 [facility] Glucose Urine UA Negative Negative mg/dL [facility] Urine Blood Negative Negative [facility] Specific Allgood - Urine 1.010 1.005 - 1.025 [facility] Urine Protein Negative Neg-Trace mg/dL [facility] Urine Ketones Negative Negative mg/dL [facility] Nitrite Urine Negative Negative [facility] Leukocyte Esterase Urine Negative Negative [facility] 11/02/2024 10:2 2 AM EDT 11/02/2024 10:56 AM EDT Narrative [facility] - 11/02/2024 11:16 AM EDT Urine, Clean Catch us Generic External Data Provider LAB URINE ORDERAB LES Final Result Performing Organization Address [facility]/ZIP Co de Phone Number [facility] [address] [place] [phone] * Hemoglobin A1c (11/02/2024 10:22 AM EDT) Hemoglobin A1c 5.0 <6.0 % [facility] Comment:Hemoglobin A1C Refer ence Range Adults: 4.8 - 6.0 % Non diabetic: < 6.0 % Goal: < 7.0 %Additional Action Suggested: > 8.0 %Note: Hemoglobin A1c results are invalid for patients with abnormal amounts of HbF. Blood transfusions may impact the HbA1c concentration in the patient sample. Estimated Average Glucose 97 mg/dL [facility] Comment:eAG = Estimated ave rage glucose which is %A1C expressed asaverage glucose, using the formula of the V2V-GeunejvZxpebjl Glucose study (ADAG), Diabetes Care, Vol.31,#8,Dec. 2007 Blood Venous blood specimen / Unknown 11/02/2024 10:22 AM EDT 11/02/2024 11:02 AM EDT us Juany Hicks MD LAB BLOOD ORDERABLES Final Resul t [facility] [address] [place] [phone] * TSH with Reflex to Free T4 (11/01/2024 4:27 PM EDT) TSH reflex Free T4 1.82 0.32 - 4.0 uIU/mL [facility] 11/01/2024 4:27 PM EDT 11/01/2024 4:28 PM EDT us Generic External Data Provider LAB BLOOD ORDERAB LES Final Result Performing Organization Address City/[facility]/ZIP Co de Phone Number [facility] [address] [place] [phone] * (ABNORMAL) Ferritin (11/01/2024 4:27 PM EDT) Ferritin 7(L) 10 - 250 ng/mL [facility] 11/01/2024 4:27 PM EDT 11/01/2024 4:28 PM EDT us Generic External Data Provider LAB BLOOD ORDERAB LES Final Result Performing Organization Address [facility] Co de Phone Number [facility] [address] [place] [phone] * (ABNORMAL) Urinalysis, Complete, with Reflex to Culture (11/01/2024 4:23 PM EDT) Color Urine Yellow [facility] Appearance Urine Clear [facility] PH 6.5 5.0 - 9.0 [facility] Glucose Urine UA Negative Negative mg/dL [facility] Urine Blood Negative Negative [facility] Specific Allgood - Urine 1.010 1.005 - 1.025 [facility] Urine Protein Negative Neg-Trace mg/dL [facility] Urine Ketones Negative Negative mg/dL [facility] Nitrite Urine Negative Negative [facility] Leukocyte Esterase Urine Trace(A) Negative [facility] RBC Urine 0-2 0 - 2 /HPF [facility] Urine WBC 6-10(A) 0 - 5 /HPF [facility] Urine Squamous Epithelial Cell 6-10 0 - 2 /HPF [facility] Urine Bacteria 1+ None Seen [facility] Hyaline Casts, Urine 0-2 0 - 2 /LPF [facility] 11/01/2024 4:23 PM EDT 11/01/2024 5:03 PM EDT Narrative [facility] - 11/01/2024 5:32 PM EDT [id number], Clean Catch us Generic External Data Provider LAB URINE ORDERAB LES Final Result Performing Organization Address [facility] Co de Phone Number [facility] [address] [place] [phone] * Culture, Urine, Routine (11/01/2024 12:00 AM EDT) Urine Urine specimen obtained by clean catch procedure / Unknown 11/01/2024 11/01/2024 Comment:UACC Narrative [facility] - 11/03/2024 11:45 AM EDT Urine Culture Report Result Urine Culture > 100,000 cfu/ml Urine Culture Mixed bacterial aster characteristic of Urine Culture urogenital contamination. Specimen Source: Urine clean catch us Generic External Data Provider LAB MICROBIOLOGY - GENERAL ORDERABLES Final Result Performing Organization Address City/State/[facility] Co de Phone Number [facility] [address] [place] [phone] * FL Esophagus Barium Swallow (10/03/2024 9:00 AM EDT) Anatomical Region Laterality Modality Head, Neck Radiographic Yudi ging 10/03/2024 9:00 AM EDT Narrative 10/03/2024 11:47 AM EDT [address] [address] Fluoroscopy Report Signed Patient: Lucas Brown MR#: [id number] : 1975 Acct:[id number] Age/Sex: 49 / F ADM Date: 10/03/24 Loc: [facility] Attending Dr: Fanta GANDHI Ordering Physician: Fanta Osuna Date of Service: 10/03/24 Procedure(s): FL barium swallow Accession Number(s): [id number] cc: Fanta Osuna; Juany Hicks MD EXAMINATION: [...] 10/03/24 1144 DD/ 0900 TD/TT: 10/03/24 0930 Batch Roller Operator: [facility] Procedure Note Donotuseinterpreter, Image - 10/03/[address] [address] Fluoroscopy Report Signed Patient: Kellen Brown#: [id number] 268 : 1975Acct:[id number] Age/Sex: 49 / FADM Date: 10/03/24 Loc: [facility] Attending Dr: Fanta GANDHI Ordering Physician: Fanta Osuna Date of Service: 10/03/24 Procedure(s): FL barium swallow Accession Number(s): [id number] cc: Fanta Osuna; Juany Hicks MD EXAMINATION: [...] 10/03/24 1144 DD/ 0900 TD/TT: 10/03/24 0930 Batch Roller Operator: [facility] External Provider IMG FLU OROSCOPY PROCEDURES Final Result * (ABNORMAL) CBC auto differential (09/26/2024 11:52 AM EDT) White Blood Count 5.1 4.8 - 10.8 X10*3/uL [facility] Red Blood Count 4.10(L) 4.20 - 5.50 X10*6/uL [facility] Hemoglobin 11.7(L) 12.0 - 16.0 g/dl [facility] Hematocrit 36.3(L) 37.0 - 47.0 % [facility] Mean Corpuscular Volume 88.5 80.0 - 98.0 fL [facility] Mean Corpuscular Hemoglobin 28.5 27.0 - 33.0 pg [facility] Mean Corpuscular HGB Conc 32.2 31.0 - 35.0 g/dl [facility] Red Cell Distribution Width 15.4 11.0 - 16.0 % [facility] Platelet Count 259 160 - 400 X10*3/uL [facility] Mean Platelet Volume 11.2 9.4 - 12.3 fL [facility] Neutrophils Percent Auto 60.7 45 - 73 % [facility] Imm Gran Pct Auto 0.4 0.0 - 0.4 % [facility] Lymphocytes Percent Auto 29.9 20 - 40 % [facility] Monocytes Percent Auto 7.8 2 - 11 % [facility] Eosinophils Percent Auto 0.6 0 - 4 % [facility] Basophils Percent Auto 0.6 0 - 2 % [facility] NRBC Pct Auto 0.0 0.0 - 0.2 /100WBC [facility] Neutrophils Absolute Auto 3.1 2.0 - 8.3 x10*3/uL [facility] Imm Gran Abs Auto 0.02 0.00 - 0.03 X10*3/uL [facility] Lymphocytes Absolute Auto 1.5 1.2 - 4.9 X10*3/uL [facility] Monocytes Absolute Auto 0.4 0.1 - 1.2 X10*3/uL [facility] Eosinophils Absolute Auto 0.0 0.0 - 0.4 X10*3/uL [facility] Basophils Absolute Auto 0.0 0.0 - 0.2 X10*3/uL [facility] NRBC Abs Auto 0.000 0.0 - 0.012 X10*3/uL [facility] 09/26/2024 11:5 2 AM EDT 09/26/2024 11:52 AM EDT us Generic External Data Provider LAB BLOOD ORDERAB LES Final Result [facility] [address] [place] [phone] * (ABNORMAL) Comprehensive Metabolic Panel (09/26/2024 11:52 AM EDT) Sodium 138 135 - 145 mmol/L [facility] Potassium 4.0 3.3 - 5.1 mmol/L [facility] Chloride 107 96 - 108 mmol/L [facility] Carbon Dioxide 24 22 - 29 mmol/L [facility] Anion Gap 11(L) 12 - 20 [facility] Urea Nitrogen (BUN) 12 9 - 16 mg/dL [facility] Creatinine, Serum 0.69 0.5 - 1.4 mg/dL [facility] Estimated Glomerular Filt Rate >60 [facility] Comment:Chronic Kidney Disea se: Estimated GFR < 60 mL/min/1.20k8Eabcev Kidney Disease: Estimated GFR < 15 mL/min/1.73m2 Glucose 88 60 - 115 mg/dL [facility] Calcium 9.4 8.4 - 10.2 mg/dL [facility] Bilirubin, Total 0.2 0.0 - 1.0 mg/dL [facility] Aspartate Amino Transferase 28 5 - 31 U/L [facility] Alanine Aminotransferase 22 0 - 31 U/L [facility] Total Protein 7.6 6.5 - 8.0 g/dL [facility] Albumin Level 4.4 3.5 - 5.0 g/dL [facility] Alkaline Phosphatase 70 39 - 117 U/L [facility] 09/26/2024 11:5 2 AM EDT 09/26/2024 11:52 AM EDT Generic External Data Provider LAB BLOOD ORDERAB LES Final Result [facility] [address] [place] [phone] * (ABNORMAL) Hm Colonoscopy (10/30/2022) Colonoscopy [...] along with historic and current clinical information. Do All Operator : SEE COMMENT [facility] Comment: MXD, CT (ASCP) CT screening location: [place] [address] Infection Shift in vaginal aster suggestive of bacterial vaginosis. [facility] Interpretation/R esult: Negative for intraepithelial lesion or malignancy. [facility] LMP: NONE [facility] Prev. BX: NONE [facility] Prev. PAP: NONE [facility] SOURCE: None [facility] Statement Of Adequacy: SEE COMMENT [facility] [facility] Comment: Satisfactory for evaluation. Endocervical/transformation zone component absent. Age and/or menstrual status not provided 09/18/2020 4:28 PM EDT Paula Culp NP LAB PATHOLOGY ORDERABLES Final Result Performing Organization Address [facility] de Phone Number [facility] [address] * HPV GENOTYPES 16,18/45 (09/18/2020 4:28 PM EDT) HPV 16 RNA NOT DETECTED NOT DETECTED [facility] HPV 18/45 RNA NOT DETECTED NOT DETECTED [facility] Comment: Methodology: Family Medicine Resident Mediated Amplification The analytical performance characteristics of this assay have been determined by [employer]. The modifications have not been cleared or approved by the FDA. This assay has been validated pursuant to the CLIA regulations and is used for clinical purposes. 09/18/2020 4:28 PM EDT Paula Culp NP LAB CYTOLOGY ORDERABLES Final R esult Performing Organization Address [facility] de Phone Number [facility] [address] * Mammography Report 1 (09/16/2020 10:30 [...] [facility] INDEX 0.02 <1.00 [facility] Comment: HCV antibody was non-reactive. There is no laboratory evidence of HCV infection. In most cases, no further action is required. However, if recent HCV exposure is suspected, a test for HCV RNA (test code 89796) is suggested. For additional information please refer to http://[employer]/faq/VKD51m1 (This link is being provided for informational/ educational purposes only.) HEPATITIS C ANTIBODY NON-REACT DIAMOND NON-REACT DIAMOND [facility] INDEX 0.02 <1.00 [facility] Comment: HCV antibody was non-reactive. There is no laboratory evidence of HCV infection. In most cases, no further action is required. However, if recent HCV exposure is suspected, a test for HCV RNA (test code 95100) is suggested. For additional information please refer to http://[employer]/faq/RNN49u2 (This link is being provided for informational/ educational purposes only.) HEPATITIS C ANTIBODY NON-REACT DIAMOND NON-REACT DIAMOND [facility] INDEX 0.02 <1.00 [facility] Comment: HCV antibody was non-reactive. There is no laboratory evidence of HCV infection. In most cases, no further action is required. However, if recent HCV exposure is suspected, a test for HCV RNA (test code 92991) is suggested. For additional information please refer to http://[employer]/faq/OQA92z3 (This link is being provided for informational/ educational purposes only.) HEPATITIS C ANTIBODY NON-REACT DIAMOND NON-REACT DIAMOND [facility] INDEX 0.02 <1.00 [facility] Comment: HCV antibody was non-reactive. There is no laboratory evidence of HCV infection. In most cases, no further action is required. However, if recent HCV exposure is suspected, a test for HCV RNA (test code 16519) is suggested. For additional information please refer to http://[employer]/faq/VFA99s4 (This link is being provided for informational/ educational purposes only.) 12/20/2019 11:2 3 AM EDT us Juany Hicks MD HISTORICAL/NON ORDERABLE LABS Fi nal Result [facility] [address] [place] [address], * HIV 1/2 ANTIGEN/ANTIBODY,FOURTH GENERATION W/RFL (12/20/2019 11:23 AM EDT) HIV-1/2 ANTIGEN AND ANTIBODIES, 4TH GENERATION W/ REFLEX NON-REACT DIAMOND NON-REACT DIAMOND [facility] Comment: HIV-1 antigen and [...] purpose. For additional information please refer to http://[employer]/faq/YAO737 (This link is being provided for informational/ educational purposes only.) The performance of this assay has not been clinically validated in patients less than 2 years old. HIV-1/2 ANTIGEN AND ANTIBODIES, 4TH GENERATION W/ REFLEX NON-REACT DIAMOND NON-REACT DIAMOND [facility] Comment: HIV-1 antigen and [...] purpose. For additional information please refer to http://[employer]/faq/CDY991 (This link is being provided for informational/ educational purposes only.) The performance of this assay has not been clinically validated in patients less than 2 years old. HIV-1/2 ANTIGEN AND ANTIBODIES, 4TH GENERATION W/ REFLEX NON-REACT DIAMOND NON-REACT DIAMOND [facility] Comment: HIV-1 antigen and [...] purpose. For additional information please refer to http://[employer]/faq/HLP733 (This link is being provided for informational/ educational purposes only.) The performance of this assay has not been clinically validated in patients less than 2 years old. HIV-1/2 ANTIGEN AND ANTIBODIES, 4TH GENERATION W/ REFLEX NON-REACT DIAMOND NON-REACT DIAMOND [facility] Comment: HIV-1 antigen and [...] purpose. For additional information please refer to http://[employer]/faq/BJA167 (This link is being provided for informational/ educational purposes only.) The performance of this assay has not been clinically validated in patients less than 2 years old. 12/20/2019 11:2 3 AM EDT us Juany Hicks MD LAB BLOOD ORDERABLES Final Resul t [facility] [address] from Last 3 Months or Most Recently Relevant to Health Maintenance Insurance [facility] C3 Care Teams Regional Sales Associate Relationship Specialty Start Date End Date Juany Hicks MD [address] [place] [place] [id number] PCP - General Family Medicine 05/03/18 Mart De La Fuente, MARISABEL [address] [place] [id number] Registered Nurse Family Medicine 11/06/24 Kylie Frey 11/06/24
== END 2024-11-16 15:14 | disposition home or self-care (01) ==
LOC: HO.MAMMO 15:13
PROVIDERS: PCP Family Medicine; Visit Provider Family Medicine
DX: Z12.31 Encounter for screening mammogram for malignant neoplasm of breast (principal)
CPT/HCPCS: 77063; 77067

== ENCOUNTER → 2024-11-16 15:30 | Outpatient (BNV) | payer MEDICAID, SELFPAY | PROVIDERS: PCP Family Medicine; Visit Provider Radiology Body Imaging | DX: Z12.31 Encounter for screening mammogram for malignant neoplasm of breast (principal) | CPT/HCPCS: 77063; 77067 ==

== ENCOUNTER 2024-11-17 10:21 | Outpatient (REF) | payer MEDICAID, SELFPAY ==
--- NOTE | ~2024-11-17 | US_ITS ---
CLINICAL HISTORY: K21.9 - Gastro-esophageal reflux disease without esophagitis US abdomen complete Comparison: None provided Findings: Diffusely echogenic pancreatic parenchyma, no focal lesion is seen. The visualized aorta and inferior vena cava are normal caliber. The liver is normal in size, right lobe length is 14.4 cm. Normal in echogenicity, no discrete lesion is visualized in the imaged liver. No intrahepatic bile duct dilatation. The common duct is 4 mm in diameter. The gallbladder is normal. Negative sonographic Laurent sign. The main portal vein is patent with antegrade flow. The right kidney is normal, 9.9 cm in length. The left kidney is normal, 9.6 cm in length. The spleen is normal, 8.3 cm in length. No free fluid in the abdomen. Impression: Probable pancreatic lipomatosis, otherwise normal. This document has been electronically signed by: Angelita Owens MD on 11/17/2024 14:08:16
--- OUTSIDE RECORDS SUMMARY | 2024-11-17 10:42 | XMS_ITS | Clinical Summary ---
Author Organization [employer] Address [address] [place] [address] [address] [place] [address] Care Team Providers Care Real Estate Sales Agent Name Role Phone Juany Hicks MD Primary Care Provider Mart De La Fuente RN Unavailable [phone] Kylie Frey Unavailable Unavailable Allergies Active [...] - Work on stress reduction - Start [id number] mg every morning Tubular adenoma of colon 11/16/2024 Assessment & Plan (11/16/2024 5:38 AM EDT): - Colonoscopy on 10/30/2022. [facility]. Tubular adenoma. - Next colonoscopy in [...] Plan (11/02/2024 4:58 AM EDT): Followed by [facility] OPERATOR Hx YOJANA-III LEEP and Cone Bx in 2014 Most recent PAP 09/18/20 NILM with negative high risk HPV Assessment & Plan (04/14/2022 5:44 PM EST): Followed by [facility] Hx YOJANA-III LEEP and Cone Bx in 2015 Most recent PAP 09/18/20 NILM with negative high risk HPV History of cervical dysplasia 08/27/2014 Assessment & Plan (11/16/2024 5:40 AM EDT): Followed by [facility] Hx YOJANA-III LEEP and Cone Bx in 2014 Most recent PAP 09/18/20 NILM with negative high risk HPV Anxiety 08/27/2014 Asthma 08/27/2014 Chronic back pain 08/27/2014 Backache 06/13/2012 Gastroesophageal reflux disease 03/23/2012 Assessment & Plan (11/16/2024 5:37 AM EDT): - Following with [facility], recommended to take pantoprazole and famotidine - Patient states that she has been taking pantoprazole only Irritable bowel syndrome 03/23/2012 Assessment & Plan (11/16/2024 5:36 AM EDT): - Following with [facility], last seen on 11/01/2024 - Continue [...] Department Care Team Description 11/16/2024 Orders Only [facility] [place] [address] Juany Hicks MD Iron deficiency anemia, unspecified iron deficiency anemia type (Primary Dx) 11/06/2024 Patient Outreach [facility] [place] [address] Juany Hicks MD Care Coordination (C3- chart review) 11/06/2024 Patient Outreach [facility] [place] [address] Juany Hicks MD 11/02/2024 9:00 AM EDT Office Visit [facility] [place] [address] Juany Hicks MD Routine general medical examination [...] dysplasia; Caregiver stress 11/02/2024 Travel 11/01/[address] [facility] [place] [address] Juany Hicks MD CHART PREP 09/26/2024 Orders Only GENERIC EXTERNAL DATA DEPARTMENT Provider, Generic External Data from Last 3 Months Immunizations Immunization Administration [...] Vitamin D 25-OH Total 27.1(L) >30 ng/mL [facility] Comment: Health Based Reference Values*< 20 ng/mL Wggnxnqxa56-18 ng/mL Insufficient> 30 ng/mL Sufficient*Artie RIVERA. N [...] MD LAB BLOOD ORDERABLES Final Resul t [facility] [address] [place] [phone] * Vitamin B12 (Cobalamin) and Folate Panel, Serum (11/02/2024 10:22 AM EDT) Vitamin B12 524 200 - 900 pg/mL [facility] Comment:NORMAL 200-900 PG/ML INDETERMINATE 160-199 PG/ML DEFICIENT < 160 PG/ML Folate 8.0 > or = 4.0 ng/mL [facility] Comment:Reference Values:> o r = 4.0 ng/mL< 4.0 ng/mL suggests folate deficiency Methotrexate, aminopterin and folinic acid(leucovorin) are chemotherapeutic agents whose molecularstructures are similar to folate; therefore, the Architectfolate assay cannot be used for patients using these drugs. Blood 11/02/2024 10:2 2 AM EDT 11/02/2024 11:02 AM EDT Juany Hicks MD LAB BLOOD ORDERABLES Final Resul t Performing Organization Address [facility] Co de Phone Number [facility] [address] [place] [phone] * (ABNORMAL) Lipid Panel with Reflex to Direct LDL (11/02/2024 10:22 AM EDT) Triglycerides 80 <150 mg/dL [facility] Comment:Desirable Triglyceri de: less than 150 mg/dLBorderline High Triglyceride 150-199 mg/dLHigh Triglyceride: 200-499 mg/dLVery High Triglyceride: greater than or equal to 5OO mg/dL Cholesterol 231(H) <200 mg/dL [facility] Comment:Desirable Cholestero l: less than 200 mg/dLBorderline High Cholesterol: 200-239 mg/dLHigh Cholesterol: greater than 239 mg/dL LDL Cholesterol Calculated 147(H) <100 mg/dL [facility] Comment:Desirable LDL: less than 100 mg/dLNear Optimal/Above Optimal LDL: 110- 129 mg/dLBorderline High LDL: 130-159 mg/dLHigh LDL: 160-189 mg/dLVery High LDL: greater than or equal to 190 mg/dL HDL Cholesterol 68 >40 mg/dL [facility] Comment:Desirable HDL: great er than 40 mg/dL Note: This HDL assay may give artificially low results in patients with liver disease. Blood 11/02/2024 10:2 2 AM EDT 11/02/2024 11:02 AM EDT Juany Hicks MD LAB BLOOD ORDERABLES Final Resul t Performing Organization Address [facility]/ZIP Co de Phone Number [facility] [address] [place] [address] [phone] * (ABNORMAL) Iron And Total Iron Binding Capacity (11/02/2024 10:22 AM EDT) Iron 47 30 - 160 mcg/dL [facility] Total Iron Binding Capacity 335 228 - 428 mcg/dL [facility] Percent Iron Saturation 14(L) 15 - 50 % [facility] Unsaturated Iron Binding 288 ug/dL [facility] Blood Venous blood specimen / Unknown 11/02/2024 10:22 AM EDT 11/02/2024 11:02 AM EDT us Laura Durant COMPLIANCE REVIEW SPECIALIST LAB BLOOD ORDERABLES Final Resul t Performing Organization Address [facility] Co de Phone Number [facility] [address] [place] [phone] * Urinalysis w/reflex microscopic (11/02/2024 10:22 AM EDT) Color Urine Yellow [facility] Appearance Urine Clear [facility] PH 6.0 5.0 - 9.0 [facility] Glucose Urine UA Negative Negative mg/dL [facility] Urine Blood Negative Negative [facility] Specific Garfield - Urine 1.010 1.005 - 1.025 [facility] Urine Protein Negative Neg-Trace mg/dL [facility] Urine Ketones Negative Negative mg/dL [facility] Nitrite Urine Negative Negative [facility] Leukocyte Esterase Urine Negative Negative [facility] 11/02/2024 10:2 2 AM EDT 11/02/2024 10:56 AM EDT Narrative [facility] - 11/02/2024 11:16 AM EDT Urine, Clean Catch us Generic External Data Provider LAB URINE ORDERAB LES Final Result Performing Organization Address [facility] Co de Phone Number [facility] [address] [place] [phone] * Hemoglobin A1c (11/02/2024 10:22 AM EDT) Hemoglobin A1c 5.0 <6.0 % [facility] Comment:Hemoglobin A1C Refer ence Range Adults: 4.8 - 6.0 % Non diabetic: < 6.0 % Goal: < 7.0 %Additional Action Suggested: > 8.0 %Note: Hemoglobin A1c results are invalid for patients with abnormal amounts of HbF. Blood transfusions may impact the HbA1c concentration in the patient sample. Estimated Average Glucose 97 mg/dL [facility] Comment:eAG = Estimated ave rage glucose which is %A1C expressed asaverage glucose, using the formula of the J2O-HwfywxwMjzuvaj Glucose study (ADAG), Diabetes Care, Vol.31,#8,Dec. 2007 Blood Venous blood specimen / Unknown 11/02/2024 10:22 AM EDT 11/02/2024 11:02 AM EDT us Juany Hicks MD LAB BLOOD ORDERABLES Final Resul t Performing Organization Address [facility] Co de Phone Number [facility] [address] [place] [phone] * TSH with Reflex to Free T4 (11/01/2024 4:27 PM EDT) TSH reflex Free T4 1.82 0.32 - 4.0 uIU/mL [facility] 11/01/2024 4:27 PM EDT 11/01/2024 4:28 PM EDT us Generic External Data Provider LAB BLOOD ORDERAB LES Final Result Performing Organization Address [facility] Co de Phone Number [facility] [address] [place] [phone] * (ABNORMAL) Ferritin (11/01/2024 4:27 PM EDT) Ferritin 7(L) 10 - 250 ng/mL [facility] 11/01/2024 4:27 PM EDT 11/01/2024 4:28 PM EDT us Generic External Data Provider LAB BLOOD ORDERAB LES Final Result Performing Organization Address [facility] Co de Phone Number [facility] [address] [place] [phone] * (ABNORMAL) Urinalysis, Complete, with Reflex to Culture (11/01/2024 4:23 PM EDT) Color Urine Yellow [facility] Appearance Urine Clear [facility] PH 6.5 5.0 - 9.0 [facility] Glucose Urine UA Negative Negative mg/dL [facility] Urine Blood Negative Negative [facility] Specific Garfield - Urine 1.010 1.005 - 1.025 [facility] Urine Protein Negative Neg-Trace mg/dL [facility] Urine Ketones Negative Negative mg/dL [facility] Nitrite Urine Negative Negative [facility] Leukocyte Esterase Urine Trace(A) Negative [facility] RBC Urine 0-2 0 - 2 /HPF [facility] Urine WBC 6-10(A) 0 - 5 /HPF [facility] Urine Squamous Epithelial Cell 6-10 0 - 2 /HPF [facility] Urine Bacteria 1+ None Seen [facility] Hyaline Casts, Urine 0-2 0 - 2 /LPF [facility] 11/01/2024 4:23 PM EDT 11/01/2024 5:03 PM EDT [facility] - 11/01/2024 5:32 PM EDT [id number], Clean Catch us Generic External Data Provider LAB URINE ORDERAB LES Final Result [facility] [address] [place] [phone] * Culture, Urine, Routine (11/01/2024 12:00 AM EDT) Urine Urine specimen obtained by clean catch procedure / Unknown 11/01/2024 11/01/2024 Comment:[facility] - 11/03/2024 11:45 AM EDT Urine Culture Report Result Urine Culture > 100,000 cfu/ml Urine Culture Mixed bacterial aster characteristic of Urine Culture urogenital contamination. Specimen Source: Urine clean catch us Generic External Data Provider LAB MICROBIOLOGY - GENERAL ORDERABLES Final Result [facility] [address] [place] [phone] * FL Esophagus Barium Swallow (10/03/2024 9:00 AM EDT) Anatomical Region Laterality Modality Head, Neck Radiographic Yudi ging 10/03/2024 9:00 AM EDT Narrative 10/03/2024 11:47 AM EDT [address] [address] Fluoroscopy Report Signed Patient: Lucas Brown MR#: [id number] : 1975 Acct:[id number] Age/Sex: 49 / F ADM Date: 10/03/24 Loc: NIKO Attending Dr: Fanta GANDHI Ordering Physician: Fanta Osuna Date of Service: 10/03/24 Procedure(s): FL barium swallow Accession Number(s): [id number] cc: Fanta Osuna; Juany Hicks MD EXAMINATION: [...] Sanchez MD in OV> 10/03/24 1144 DD/ 9 TD/TT: 10/03/24929 Cell[employer]ane Press Operator: AIXA Procedure Note Donotuseinterpreter, Image - 10/03/[address] [address] Fluoroscopy Report Signed Patient: Kellen Brown#: [id number] : 1975Acct:[id number] Age/Sex: 49 / FADM Date: 10/03/24 Loc: HO.XRAY Attending Dr: Fanta GANDHI Ordering Physician: Fanta Osuna Date of Service: 10/03/24 Procedure(s): FL barium swallow Accession Number(s): [id number] cc: Fanta Osuna; Juany Hicks MD EXAMINATION: [...] Sanchez MD in OV> 10/03/24 1144 DD/ 9 TD/TT: 10/03/24929 Cellophane Press Operator: AIXA us [facility] External Provider IMG FLU OROSCOPY PROCEDURES Final Result * (ABNORMAL) CBC auto differential (09/26/2024 11:52 AM EDT) White Blood Count 5.1 4.8 - 10.8 X10*3/uL [facility] Red Blood Count 4.10(L) 4.20 - 5.50 X10*6/uL [facility] Hemoglobin 11.7(L) 12.0 - 16.0 g/dl [facility] Hematocrit 36.3(L) 37.0 - 47.0 % [facility] Mean Corpuscular Volume 88.5 80.0 - 98.0 fL [facility] Mean Corpuscular Hemoglobin 28.5 27.0 - 33.0 pg [facility] Mean Corpuscular HGB Conc 32.2 31.0 - 35.0 g/dl [facility] Red Cell Distribution Width 15.4 11.0 - 16.0 % [facility] Platelet Count 259 160 - 400 X10*3/uL [facility] Mean Platelet Volume 11.2 9.4 - 12.3 fL [facility] Neutrophils Percent Auto 60.7 45 - 73 % [facility] Imm Gran Pct Auto 0.4 0.0 - 0.4 % [facility] Lymphocytes Percent Auto 29.9 20 - 40 % [facility] Monocytes Percent Auto 7.8 2 - 11 % [facility] Eosinophils Percent Auto 0.6 0 - 4 % [facility] Basophils Percent Auto 0.6 0 - 2 % [facility] NRBC Pct Auto 0.0 0.0 - 0.2 /100WBC [facility] Neutrophils Absolute Auto 3.1 2.0 - 8.3 x10*3/uL [facility] Imm Gran Abs Auto 0.02 0.00 - 0.03 X10*3/uL [facility] Lymphocytes Absolute Auto 1.5 1.2 - 4.9 X10*3/uL [facility] Monocytes Absolute Auto 0.4 0.1 - 1.2 X10*3/uL [facility] Eosinophils Absolute Auto 0.0 0.0 - 0.4 X10*3/uL [facility] Basophils Absolute Auto 0.0 0.0 - 0.2 X10*3/uL [facility] NRBC Abs Auto 0.000 0.0 - 0.012 X10*3/uL [facility] 09/26/2024 11:5 2 AM EDT 09/26/2024 11:52 AM EDT us Generic External Data Provider LAB BLOOD ORDERAB LES Final Result [facility] [address] [place] [phone] * (ABNORMAL) Comprehensive Metabolic Panel (09/26/2024 11:52 AM EDT) Sodium 138 135 - 145 mmol/L [facility] Potassium 4.0 3.3 - 5.1 mmol/L [facility] Chloride 107 96 - 108 mmol/L [facility] Carbon Dioxide 24 22 - 29 mmol/L [facility] Anion Gap 11(L) 12 - 20 [facility] Urea Nitrogen (BUN) 12 9 - 16 mg/dL [facility] Creatinine, Serum 0.69 0.5 - 1.4 mg/dL [facility] Estimated Glomerular Filt Rate >60 [facility] Comment:Chronic Kidney Disea se: Estimated GFR < 60 mL/min/1.20d3Unbapv Kidney Disease: Estimated GFR < 15 mL/min/1.73m2 Glucose 88 60 - 115 mg/dL [facility] Calcium 9.4 8.4 - 10.2 mg/dL [facility] Bilirubin, Total 0.2 0.0 - 1.0 mg/dL [facility] Aspartate Amino Transferase 28 5 - 31 U/L [facility] Alanine Aminotransferase 22 0 - 31 U/L [facility] Total Protein 7.6 6.5 - 8.0 g/dL [facility] Albumin Level 4.4 3.5 - 5.0 g/dL [facility] Alkaline Phosphatase 70 39 - 117 U/L [facility] 09/26/2024 11:5 2 AM EDT 09/26/2024 11:52 AM EDT us Generic External Data Provider LAB BLOOD ORDERAB LES Final Result [facility] [address] [place] [phone] * (ABNORMAL) Hm Colonoscopy (10/30/2022) Colonoscopy [...] along with historic and current clinical information. Director Of Business Services : SEE COMMENT [facility] Comment: MXD, CT (ASCP) CT screening location: [place] [address] Infection Shift in vaginal aster suggestive of bacterial vaginosis. [facility] Interpretation/R esult: Negative for intraepithelial lesion or malignancy. [facility] LMP: NONE [facility] Prev. BX: NONE [facility] Prev. PAP: NONE [facility] SOURCE: None [facility] Statement Of Adequacy: SEE COMMENT [facility] Comment: Satisfactory for evaluation. Endocervical/transformation zone component absent. Age and/or menstrual status not provided 09/18/2020 4:28 PM EDT us Paula Culp NP LAB PATHOLOGY ORDERABLES Final Result [facility] [address] * HPV GENOTYPES 16,18/45 (09/18/2020 4:28 PM EDT) Pathologist [facility] HPV 16 RNA NOT DETECTED NOT DETECTED [facility] HPV 18/45 RNA NOT DETECTED NOT DETECTED [facility] Comment: Methodology: [employer] Mediated Amplification The analytical performance characteristics of this assay have been determined by [employer]. The modifications have not been cleared or approved by the FDA. This assay has been validated pursuant to the CLIA regulations and is used for clinical purposes. 09/18/2020 4:28 PM EDT Paula Culp NP LAB CYTOLOGY ORDERABLES Final R esult [facility] [address] * Mammography Report 1 (09/16/2020 10:30 [...] QN, PCR (12/20/2019 11:23 AM EDT) Pathologist [facility] HEPATITIS C ANTIBODY NON-REACT DIAMOND NON-REACT DIAMOND [facility] INDEX 0.02 <1.00 [facility] Comment: HCV antibody was non-reactive. There is no laboratory evidence of HCV infection. In most cases, no further action is required. However, if recent HCV exposure is suspected, a test for HCV RNA (test code 74626) is suggested. For additional information please refer to http://education.Kaymu.pk/faq/FZI07q9 (This link is being provided for informational/ educational purposes only.) HEPATITIS C ANTIBODY NON-REACT DIAMOND NON-REACT DIAMOND [facility] INDEX 0.02 <1.00 [facility] Comment: HCV antibody was non-reactive. There is no laboratory evidence of HCV infection. In most cases, no further action is required. However, if recent HCV exposure is suspected, a test for HCV RNA (test code 16540) is suggested. For additional information please refer to http://Farecast/faq/AWR12d8 (This link is being provided for informational/ educational purposes only.) HEPATITIS C ANTIBODY NON-REACT DIAMOND NON-REACT DIAMOND [facility] INDEX 0.02 <1.00 [facility] Comment: HCV antibody was non-reactive. There is no laboratory evidence of HCV infection. In most cases, no further action is required. However, if recent HCV exposure is suspected, a test for HCV RNA (test code 30756) is suggested. For additional information please refer to http://Farecast/faq/MOE30y7 (This link is being provided for informational/ educational purposes only.) HEPATITIS C ANTIBODY NON-REACT DIAMOND NON-REACT DIAMOND [facility] INDEX 0.02 <1.00 [facility] Comment: HCV antibody was non-reactive. There is no laboratory evidence of HCV infection. In most cases, no further action is required. However, if recent HCV exposure is suspected, a test for HCV RNA (test code 98177) is suggested. For additional information please refer to http://Farecast/faq/WFA42g4 (This link is being provided for informational/ educational purposes only.) 12/20/2019 11:2 3 AM EDT us Juany Hicks MD HISTORICAL/NON ORDERABLE LABS Fi nal Result [facility] [address] * HIV 1/2 ANTIGEN/ANTIBODY,FOURTH GENERATION W/RFL (12/20/2019 11:23 AM EDT) HIV-1/2 ANTIGEN AND ANTIBODIES, 4TH GENERATION W/ REFLEX NON-REACT DIAMOND NON-REACT DIAMOND [facility] Comment: HIV-1 antigen and HIV-1/HIV-2 [...] purpose. For additional information please refer to http://Anygma.Kaymu.pk/faq/MSL564 (This link is being provided for informational/ educational purposes only.) The performance of this assay has not been clinically validated in patients less than 2 years old. HIV-1/2 ANTIGEN AND ANTIBODIES, 4TH GENERATION W/ REFLEX NON-REACT DIAMOND NON-REACT DIAMOND [facility] Comment: HIV-1 antigen and HIV-1/HIV-2 [...] purpose. For additional information please refer to http://Anygma.Compass Engine.Kizziang/faq/CXN420 (This link is being provided for informational/ educational purposes only.) The performance of this assay has not been clinically validated in patients less than 2 years old. HIV-1/2 ANTIGEN AND ANTIBODIES, 4TH GENERATION W/ REFLEX NON-REACT DIAMOND NON-REACT DIAMOND [facility] Comment: HIV-1 antigen and HIV-1/HIV-2 [...] purpose. For additional information please refer to http://education.Kaymu.pk/faq/UJN715 (This link is being provided for informational/ educational purposes only.) The performance of this assay has not been clinically validated in patients less than 2 years old. HIV-1/2 ANTIGEN AND ANTIBODIES, 4TH GENERATION W/ REFLEX NON-REACT DIAMOND NON-REACT DIAMOND [facility] Comment: HIV-1 antigen and HIV-1/HIV-2 [...] purpose. For additional information please refer to http://Anygma.Kaymu.pk/faq/ENA336 (This link is being provided for informational/ educational purposes only.) The performance of this assay has not been clinically validated in patients less than 2 years old. 12/20/2019 11:2 3 AM EDT us Juany Hicks MD LAB BLOOD ORDERABLES Final Resul t [facility] [address] from Last 3 Months or Most Recently Relevant to Health Maintenance Insurance [facility] C3 Care Teams Real Estate Sales Agent Relationship Specialty Start Date End Date Juany Hicks MD [address] [place] [phone] PCP - General Family Medicine 05/03/18 Mart De La Fuente, MARISABEL [address] [place] [phone] Registered Nurse Family Medicine 11/06/24 Kylie Frey 11/06/24
--- OUTSIDE RECORDS SUMMARY | 2024-11-17 10:42 | XMS_ITS | Clinical Summary ---
Author Organization [employer] [facility] ity Address [address] [place] [address] Care Team Providers Care Dot Compliance Manager Name Role Phone Unavailable Primary Care Provider [...]
== END 2024-11-17 10:22 | disposition home or self-care (01) ==
LOC: HO.US 10:21
PROVIDERS: PCP Family Medicine; Visit Provider Nurse Practitioner
DX: R10.10 Upper abdominal pain, unspecified (principal); K21.9 Gastro-esophageal reflux disease without esophagitis
CPT/HCPCS: 76700

== ENCOUNTER → 2024-11-17 10:23 | Outpatient (BNV) | payer MEDICAID, SELFPAY | PROVIDERS: PCP Family Medicine; Visit Provider Radiology Diagnostic Radiology | DX: K21.9 Gastro-esophageal reflux disease without esophagitis (principal) | CPT/HCPCS: 76700 ==

== ENCOUNTER 2024-12-13 13:39 | Outpatient (REF) | payer MEDICAID, SELFPAY ==
[2024-12-13 14:42] LABS: MANUAL DIFF FLAG NO
[2024-12-13 15:22] LABS: Hematocrit 36.8 % (37.0-47.0); Hemoglobin 12.2 g/dl (12.0-16.0); Imm Gran Abs Auto 0.02 X10*3/uL (0.00-0.03); Imm Gran Pct Auto 0.3 % (0.0-0.4); Lymphocytes Absolute Auto 2.0 X10*3/uL (1.2-4.9); Mean Corpuscular HGB Conc 33.2 g/dl (31.0-35.0); Mean Corpuscular Hemoglobin 30.7 pg (27.0-33.0); Mean Corpuscular Volume 92.5 fL (80.0-98.0); NRBC Abs Auto 0.000 X10*3/uL (0.0-0.012); NRBC Pct Auto 0.0 /100WBC (0.0-0.2); Platelet Count 247 X10*3/uL (160-400); Red Blood Count 3.98 X10*6/uL (4.20-5.50); White Blood Count 5.9 X10*3/uL (4.8-10.8)
[2024-12-13 16:11] LABS: Ferritin 32 ng/mL (10-250)
== END 2024-12-13 13:40 | disposition home or self-care (01) ==
LOC: HO.LAB 13:39
PROVIDERS: PCP Family Medicine; Visit Provider Nurse Practitioner
DX: D64.9 Anemia, unspecified (principal); K21.9 Gastro-esophageal reflux disease without esophagitis; K59.00 Constipation, unspecified; D12.6 Benign neoplasm of colon, unspecified; R10.10 Upper abdominal pain, unspecified; R63.4 Abnormal weight loss
CPT/HCPCS: 36415; 82728; 85025; 99212

== ENCOUNTER 2024-12-13 13:39 | Outpatient (AMB) | payer MEDICAID, SELFPAY ==
--- NOTE | 2024-12-13 13:44 | MHC.OFFVIS ---
Vital Signs 12/13/24 13:45 Height 5 ft 1 in Weight 122 lb BMI 23.0 BP 135/81 Blood Pressure Location Lt brachial Position Sitting Pulse 92 Pulse Oximetry (%) 96 Oxygen Delivery Method Room Air Intake Visit Reasons: 6 wks f/u Intake Note: Patient 6 week follow up for Anemia. Patient cc: tiredness, denies any other GI issues. Electroplater Automatic Required: No Accompanied by: Self / Same As Patient Allergies promethazine (From [facility]ENER[facility]) Allergy (Severe, Verified 12/13/24 13:44) FACIAL SWELLING metoclopramide Allergy (Unknown, Verified 12/13/24 13:44) neuro symptoms-face prochlorperazine Allergy (Unknown, Verified 12/13/24 13:44) memory loss chlorpheniramine (Phenagil) Adverse Reaction (Unknown, Verified 12/13/24 13:44) upset stomach HPI HPI 6 wks f/u: Details: Assessment & Plan (1) GERD (gastroesophageal reflux disease): Code(s): K21.9 - Gastro-esophageal reflux disease without esophagitis Category: Medical (2) Constipation: Code(s): K59.00 - Constipation, unspecified Category: Medical (3) Tubular adenoma of colon: Comment: 2022 scope equals TA repeat in 3 years Code(s): D12.6 - Benign neoplasm of colon, unspecified Category: Medical (4) Upper abdominal pain: Code(s): R10.10 - Upper abdominal pain, unspecified Category: Medical (5) Weight loss: Code(s): R63.4 - Abnormal weight loss Category: Medical (6) Anemia: Code(s): D64.9 - Anemia, unspecified Category: Medical Plan She received pepcid, no pantoprazole as I would have liked, and this is not helping her sx of epigastric to gastric pain. She continues to lose weight.Will re send pantoprazle. She is eating well and is using Ensure. She admits to increased anxiety r/t caring for her mother, and pretty significant insomnia. WIll be seeing PCP tomorrow. 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 Will get UA and TSH and ordering EGD. She has US upcoming, Barium swallow no severe abn. ROV 6 weeks. Orders: Orders TSH reflex Free T4 Today R63.4 - Abnormal weight loss Ferritin Today D64.9 - Anemia, unspecified UA CC w/rflx Micro + Cult Today R63.4 - Abnormal weight loss EGD - GI Use Only Today R10.10 - Upper abdominal pain, unspecified Medications: New pantoprazole (Protonix) 40 mg PO DAILY 30 tabs 6RF 30 days K21.9 - Gastro-esophageal reflux disease without esophagitis LABS: Laboratory Tests 11/01/24 16:27 Ferritin 7 L TSH 1.82 11/02/24-[address]: Juany Hicks MD ORDERED: Ua Clean Catch QUERIES: Source: Urine, Clean Catch Test Result Flag Reference Ur Color Yellow Ur Appear Clear PH 6.0 5.0-9.0 Ur Glu Negative Negative mg/dL Urine Blood Negative Negative Spec [place] Ur 1.010 1.005-1.025 Urine Protein Negative Neg-Trace mg/dL Urine Ketones Negative Negative mg/dL Ur Nitrite Negative Negative Ur Maykel Esterase Negative Negative ULTRASOUND OF THE ABDOMEN 11/17/2024 Findings: Diffusely echogenic pancreatic parenchyma, no focal lesion is seen. The visualized aorta and inferior vena cava are normal caliber. The liver is normal in size, right lobe length is 14.4 cm. Normal in echogenicity, no discrete lesion is visualized in the imaged liver. No intrahepatic bile duct dilatation. The common duct is 4 mm in diameter. The gallbladder is normal. Negative sonographic Laurent sign. The main portal vein is patent with antegrade flow. The right kidney is normal, 9.9 cm in length. The left kidney is normal, 9.6 cm in length. The spleen is normal, 8.3 cm in length. No free fluid in the abdomen. Impression: Probable pancreatic lipomatosis, otherwise normal. EGD BIOPSY TODAY'S VISIT She tells me that she saw her primary care provider and may, and response to her anemia she has restarted her iron at 1 tablet every other day to try to avoid stomach upset. Yet she is still experiencing fatigue. I let her know that her ferritin is quite low so she is clearly either not taking in enough iron or losing it somewhere. With this date when she tells me she continues to have extremely heavy menses sometimes bleeding for 3 days in a row and this could be the source of her anemia and losses. She says her primary care provider is the 1 that manages her gynecologic issues and Pap smears so we did educate her about the possibility of utilizing oral control pills to even on her hormones. She is doing somewhat better with the pantoprazole having better and worse days with her stomach. I time she finds it beneficial to take it twice a day. I will see if I can get insurance approval for twice a day dosing to protect her stomach and offer her relief at least until we can get the endoscopy. For now we are going to repeat the CBC in the ferritin. Return office visit in 6 weeks [facility] Medical History Abnormal Pap smear of cervix Chronic gastritis Anxiety Depression IBS (irritable bowel syndrome) Vitamin D deficiency Back pain GERD (gastroesophageal reflux disease) Surgical History History of esophagogastroduodenoscopy (EGD) Hx of colonoscopy H/O hemorrhoidectomy Family History Maternal Grandmother Liver cancer Maternal Uncle Throat cancer Social History Alcohol intake: never Patient Tobacco Use Status: Current everyday Tobacco user Tobacco use type: Cigarette Cigarette Packs Per Day: 5 Review of Systems Const Reports fatigue, Denies fever(s), Denies night sweats, Denies poor appetite and Denies weight loss ENT Reports Normal hearing present, Denies dental pain, Denies dysphagia, Denies hearing loss, Denies mouth pain, Denies odynophagia, Denies throat swelling, Denies tongue swelling and Reports other (Dentition adequate) Card Reports no additional complaints Resp Reports no additional complaints GI Details: Reports abdominal pain, Denies melena, Denies bloating, Denies hematochezia, Denies constipation, Denies GI cramping, Denies dysphagia, Denies excessive flatus, Denies early satiety, Reports heartburn, Denies diarrhea, Denies nausea, Denies odynophagia, Denies vomiting and Denies hematemesis Reports abnormal vaginal bleeding Skin/Breast Denies pruritus, Denies lesions, Denies rash and Denies jaundice Neuro Reports Normal hearing present and Denies Abnormal speech present Endo Reports fatigue Aller/Immun Denies throat swelling and Denies tongue swelling Physical Exam Vital Signs: Last Vital Signs Pulse 92 12/13/24 13:45 BP 135/81 12/13/24 13:45 Pulse Ox 96 12/13/24 13:45 Oxygen Delivery Method Room Air 12/13/24 13:45 BMI result Body Mass Index 23.0 Const General: cooperative, no acute distress, well developed and well groomed Nutritional Appearance: average body habitus and well nourished Orientation/consciousness: oriented to person, oriented to place and oriented to time Limitations: No language barrier HEENT Head: Yes normocephalic and Yes atraumatic Eyes General: appearance normal, both eyes and all related structures Pupils: Equal, round and reactive pupils present Neck Neck: Yes normal visual inspection and Yes no lymphadenopathy Thyroid: Thyroid normal Resp Effort & Inspection: normal respiratory effort and able to speak in complete sentences Auscultation: clear to auscultation bilaterally Cardio Rate: regular rate Rhythm: regular rhythm Heart sounds: Normal, physiologic split S2 sound present Peripheral pulses: radial pulses present and posterior tibial pulses present GI Inspection: No distended and No Abdominal panniculus present Palpation (GI): Soft to palpation, nontender, no guarding and not rigid Percussion: Yes normal to percussion Auscultation: normal bowel sounds Rectal Exam - Female: deferred Skin Other: Areas of vitiligo on the face General skin exam: no rashes or lesions noted, turgor normal, skin not dry, no jaundice, No spider nevi and no striae Rashes: no rashes Nails: normal Neuro General: oriented to person, oriented to place and oriented to time Cranial nerves: Yes Equal, round and reactive pupils present and Yes Normal hearing present Speech: No Abnormal speech present Extrem General: Yes normal to inspection, No clubbing, No cyanosis and No edema Psych Appearance: grossly normal and well kempt Mental Status: mental status grossly normal Speech and movement: Normal speech and movement present Affect: normal affect Attitude: cooperative Thought process: Normal thought process present and not confabulating Thought content: Normal thought content present Insight: Good insight present (Psych) Judgement: Good judgement present (Psych) Assessment & Plan Assessment & Plan (1) Anemia: Code(s): D64.9 - Anemia, unspecified Category: Medical (2) Upper abdominal pain: Code(s): R10.10 - Upper abdominal pain, unspecified Category: Medical (3) GERD (gastroesophageal reflux disease): Code(s): K21.9 - Gastro-esophageal reflux disease without esophagitis Category: Medical Plan She tells me that she saw her primary care provider and august, and response to her anemia she has restarted her iron at 1 tablet every other day to try to avoid stomach upset. Yet she is still experiencing fatigue. I let her know that her ferritin is quite low so she is clearly either not taking in enough iron or losing it somewhere. With this date when she tells me she continues to have extremely heavy menses sometimes bleeding for 3 days in a row and this could be the source of her anemia and losses. She says her primary care provider is the 1 that manages her gynecologic issues and Pap smears so we did educate her about the possibility of utilizing oral control pills to even on her hormones. She is doing somewhat better with the pantoprazole having better and worse days with her stomach. I time she finds it beneficial to take it twice a day. I will see if I can get insurance approval for twice a day dosing to protect her stomach and offer her relief at least until we can get the endoscopy. For now we are going to repeat the CBC in the ferritin. Return office visit in 6 weeks EGD BIOPSY Orders: Orders Complete Blood Count Auto Diff Today D64.9 - Anemia, unspecified Ferritin Today D64.9 - Anemia, unspecified Medications: Changed From pantoprazole (Protonix) 40 mg PO DAILY 30 days 30 tabs 6RF K21.9 - Gastro-esophageal reflux disease without esophagitis To pantoprazole (Protonix) 40 mg PO BID 60 tabs 6RF 30 days K21.9 - Gastro-esophageal reflux disease without esophagitis Discontinued famotidine (Pepcid) Discontinued Reason: Doctor's Order 40 mg PO BEDTIME 30 tabs 6RF K21.9 - Gastro-esophageal reflux disease without esophagitis, R10.10 - Upper abdominal pain, unspecified Coding Level of Care Code Est Pt Level 3 (89451) Diagnoses Anemia D64.9 Upper abdominal pain R10.10 GERD (gastroesophageal reflux disease) K21.9
[2024-12-13 13:45] VITALS: BP 135/81; PULSE 92; O2SAT 96; BMI 23.0
--- OUTSIDE RECORDS SUMMARY | 2024-12-13 14:05 | XMS_ITS | Clinical Summary ---
Author Organization [employer] Address [address] [facility] [address] [place] [address] Care Team Providers Care Capsule Inspector Name Role Phone Juany Hicks MD Primary Care Provider [phone] Mart De La Fuente RN Unavailable [phone] Kylie Frey Unavailable Unavailable August Unavailable Allergies Active Allergy Reactions Criticality Noted [...] by mouth Once per day. 90 tablet Active fluticasone (Flonase) 50 MCG/ACT nasal spray [...] Do not crush, chew, or split. Active doxycycline (Vibra-Tabs) 100 MG tablet Take 1 tablet (100 mg) by mouth 2 times daily for 10 days. Take with a full glass of water and do not lie down for at least 30 minutes after. 20 tablet 025 2024 Active celecoxib (CeleBREX) 200 MG capsule Take 1 capsule (200 mg) by mouth 2 times daily for 10 days. 20 capsule 025 2024 Active albuterol 108 (90 Base) MCG/ACT inhaler Inhale. Inhale 2 puffs by inhalation route every 4-5 hours as needed for difficulty breathing 4 times a day 022 2024 Discontinued(M ed list cleanup (will [...] - Work on stress reduction - Start [id number] mg every morning Tubular adenoma of colon 11/16/2024 Assessment & Plan (11/16/2024 5:38 AM EDT): - Colonoscopy on 10/30/2022. [facility]. Tubular adenoma. - Next colonoscopy in [...] Plan (11/02/2024 4:58 AM EDT): Followed by [facility] Hx YOJANA-III LEEP and Cone Bx in 2014 Most recent PAP 09/18/20 NILM with negative high risk HPV Assessment & Plan (04/14/2022 5:44 PM EST): Followed by [facility] Hx YOJANA-III LEEP and Cone Bx in 2014 Most recent PAP 09/18/20 NILM with negative high risk HPV History of cervical dysplasia 08/27/2014 Assessment & Plan (11/16/2024 5:40 AM EDT): Followed by [facility] Hx YOJANA-III LEEP and Cone Bx in 2014 Most recent PAP 09/18/20 NILM with negative high risk HPV Anxiety 08/27/2014 Asthma 08/27/2014 Chronic back pain 08/27/2014 Backache 06/13/2012 Gastroesophageal reflux disease 03/23/2012 Assessment & Plan (11/16/2024 5:37 AM EDT): - Following with [facility], recommended to take pantoprazole and famotidine - Patient states that she has been taking pantoprazole only Irritable bowel syndrome 03/23/2012 Assessment & Plan (11/16/2024 5:36 AM EDT): - Following with [facility], last seen on 11/01/2024 - Continue [...] organization. Date Type Department Care Team Description 12/11/2024 2:00 PM EDT Office Visit [facility] [address] [place] [phone] Name, MD Andrés Abscess or cellulitis of toe, right (Primary Dx); [place] of toe 12/11/2024 Travel 11/17/2024 Orders Only [facility] External Provider, [facility] 11/16/2024 Orders Only [facility] [address] [place] [phone] Juany Hicks MD Iron deficiency anemia, unspecified iron deficiency anemia type (Primary Dx) 11/06/2024 Patient Outreach [address] [address] Juany Hicks MD Care Coordination ([facility]- chart review) 11/06/2024 Patient Outreach [address] [address] Juany Hicks MD 11/02/2024 9:00 AM EDT Office Visit [address] [address] Juany Hicks MD Routine general medical examination [...] dysplasia; Caregiver stress 11/02/2024 Travel 11/01/[address] [address] Juany Hicks MD CHART PREP 09/26/2024 Orders [...] Sign Reading Time Taken Comments Blood Pressure 146/88 12/11/2024 1:29 PM EDT Pulse 98 12/11/2024 1:29 PM EDT Temperature 36.4 C (97.6 F) 12/11/2024 1:29 PM EDT Respiratory Rate 18 12/11/2024 1:29 PM EDT Oxygen Saturation 98% 12/11/2024 1:29 PM EDT Inhaled Oxygen Concentration - - Weight 54.4 kg (120 lb) 12/11/2024 1:29 PM EDT Height 153 cm (5' 0.24 ) 11/02/2024 9:12 AM EDT Body Mass Index 23.25 11/02/2024 9:12 AM EDT Plan of Treatment Health Maintenance Due Date Last Done Comments CT Colonography 1975 FIT DNA/Cologuard 1975 FIT 1975 FOBT 1975 SDOH Screening 1975 Sigmoidoscopy 1975 Family Planning (PISQ) 02/05/1991 COVID-19 Vaccine ( season) 2024 06/04/2021, 05/07/2021 [...] 11/02/2024 Zoster Vaccines (1 of 2) 02/05/2026 Mammogram 11/16/2026 11/16/2024, 0510/2020, 10/06/2017 Colonoscopy 10/31/2027 10/30/2022 Colorectal Cancer Screening 10/31/2027 [...] Procedure Name Priority Date/Time Associated Diagnosis Comments US ABDOMEN COMPLETE Routine 11/17/2024 2 :08 PM EDT BI MAMMOGRAM SCREENING TOMOSYNTHESIS BILATERAL Routine 11/16/2024 3:16 PM EDT Breast cancer screening by mammogram URINALYSIS WITH REFLEX MICROSCOPIC Routine 11/02/2024 10:22 [...] THINPREP PAP Routine 09/18/2020 4:28 PM EDT ZZZ HISTORICAL HEPATITIS C AB W/REFL TO HCV RNA, QN, PCR Routine 12/20/2019 11:23 AM EDT HIV 1/2 ANTIGEN/ANTIBODY, FOURTH GENERATION W/RFL Routine 12/20/2019 11:23 AM EDT from Last 3 Months or Most Recently Relevant to Health Maintenance Results * US Abdomen Complete (11/17/2024 2:08 PM EDT) Anatomical Region Laterality Modality Abdomen Ultrasound 11/17/2024 2:08 PM EDT Narrative 11/17/2024 2:09 PM EDT [address] [address] Ultrasound Report Signed Patient: Lucas Brown MR#: [id number] 268 : 1975 Acct:[id number] Age/Sex: 49 / F ADM Date: 11/17/24 Loc: HO.US Attending Dr: Fanta GANDHI Ordering Physician: Fanta Osuna Date of Service: 11/17/24 Procedure(s): US abdomen complete Accession Number(s): [id number] cc: Fanta Osuna; Juany Hicks MD CLINICAL HISTORY: K21.9 - Gastro-esophageal reflux disease without esophagitis US abdomen complete Comparison: None provided Findings: Diffusely echogenic pancreatic parenchyma, no focal lesion is seen. The visualized aorta and inferior vena cava are normal caliber. The liver is normal in size, right lobe length is 14.4 cm. Normal in echogenicity, no discrete lesion is visualized in the imaged liver. No intrahepatic bile duct dilatation. The common duct is 4 mm in diameter. The gallbladder is normal. Negative sonographic Laurent sign. The main portal vein is patent with antegrade flow. The right kidney is normal, 9.9 cm in length. The left kidney is normal, 9.6 cm in length. The spleen is normal, 8.3 cm in length. No free fluid in the abdomen. Impression: Probable pancreatic lipomatosis, otherwise normal. This document has been electronically signed by: Angelita Owens MD on 11/17/2024 14:08:16 Dictated By: Angelita Owens MD Signed By: <Electronically signed by Angelita Owens MD in OV> 11/17/24 1409 DD/ 1408 TD/TT: 11/17/24 1408 Sterile Supply Technician: Procedure Note Donotuseinterpreter, Image - 11/17/2024 [place] [address] Ultrasound Report Signed Patient: Kellen Brown#: [id number] 268 : 1975Acct:[id number] Age/Sex: 49 / FADM Date: 11/17/24 Loc: HO.US Attending Dr: Fanta GANDHI Ordering Physician: Fanta Osuna Date of Service: 11/17/24 Procedure(s): US abdomen complete Accession Number(s): [id number] cc: Fanta Osuna; Juany Hicks MD CLINICAL HISTORY: K21.9 - Gastro-esophageal reflux disease withoutesophagitis US abdomen complete Comparison: None provided Findings: Diffusely echogenic pancreatic parenchyma, no focal lesion is seen. The visualized aorta and inferior vena cava are normal caliber. The liver is normal in size, right lobe length is 14.4 cm. Normal in echogenicity, no discrete lesion is visualized in the imaged liver. No intrahepatic bile duct dilatation. The common duct is 4 mm in diameter. The gallbladder is normal. Negative sonographic Laurent sign. The main portal vein is patent with antegrade flow. The right kidney is normal, 9.9 cm in length. The left kidney is normal, 9.6 cm in length. The spleen is normal, 8.3 cm in length. No free fluid in the abdomen. Impression: Probable pancreatic lipomatosis, otherwise normal. This document has been electronically signed by: Angelita Owens MD on 11/17/2024 14:08:16 Dictated By: Angelita Owens MD Signed By: <Electronically signed by Angelita Owens MD in OV> 11/17/24 1409 DD/ 1408 TD/TT: 11/17/24 1408 Sterile Supply Technician: [facility] External Provider IMG US PROCEDURES Final Result * BI Mammogram Screening Tomosynthesis Bilateral (11/16/2024 3:16 PM EDT) Anatomical Region Laterality Modality Breast Bilateral Mammography 11/16/2024 3:16 PM EDT Narrative 11/27/2024 10:19 AM EDT [facility] [address] [place] [address] Mammography Report Signed Patient: Lucas Brown MR#: [id number] 268 : 1975 Acct:[id number] Age/Sex: 49 / F ADM Date: 11/16/24 Loc: [place] Attending Dr: Juany Hicks MD Ordering Physician: Juany Hicks MD Results: 1Negative Date of Service: 11/16/24 Follow Up: 1 Year From Orig ina Mammogram Procedure(s): MM tomosynthesis screening BI Accession Number(s): [id number] cc: Juany Hicks MD EXAMINATION: MM SCREENING DIGITAL BREAST TOMOSYNTHESIS, BILATERAL CLINICAL INFORMATION: Screening. Asymptomatic. COMPARISON: Comparison made to multiple prior, most recent September 16, 2020, and most remote March 17, 2016. TECHNIQUE: Digital breast tomosynthesis is performed in both the craniocaudal and mediolateral oblique views along with computer-aided detection (CAD). Synthesized 2D images are generated from the tomosynthesis. FINDINGS: BREAST COMPOSITION: There are scattered areas of fibroglandular density (ACR BI-RADS breast composition Category b). BILATERAL BREASTS: No significant masses, suspicious calcifications or other abnormalities are seen in either breast. MM/MM tomosynthesis screening BI IMPRESSION: BILATERAL BREASTS: Negative, no mammographic evidence of malignancy. Normal interval follow-up is recommended in 12 months. ASSESSMENT: BI-RADS 1 - Negative RECOMMENDATION: Routine annual mammography screening. FOLLOW-UP: 1 year F/U This examination should not preclude the clinical evaluation of a suspicious palpable abnormality. This patient's information was entered into a reminder system with a target due date for their next mammogram. Electronically signed by: Stu Martin MD 11/27/2024 10:16 AM EDT Dictated By: Stu Martin MD Signed By: <Electronically signed by Stu Martin MD in OV> 11/27/24 1016 DD/ 1516 TD/TT: 11/16/24 1535 Sterile Supply Technician: Procedure Note Donotuseinterpreter, Image - 11/27/2024 [facility] [address] [place] [address] Mammography Report Signed Patient: Kellen Brown#: [id number] 268 : 1975Acct:[id number] Age/Sex: 49 / FADM Date: 11/16/24 Loc: [place] Attending Dr: Juany Hicks MD Ordering Physician: Juany Hicks MDResults: 1Negative Date of Service: 11/16/24Follow Up: 1 Year From Orig inal Mammogram Procedure(s): MM tomosynthesis screening BI Accession Number(s): [id number] cc: Juany Hicks MD EXAMINATION: MM SCREENING DIGITAL BREAST TOMOSYNTHESIS, BILATERAL CLINICAL INFORMATION: Screening. Asymptomatic. COMPARISON: Comparison made to multiple prior, most recent September 16, 2020, and most remote March 17, 2016. TECHNIQUE: Digital breast tomosynthesis is performed in both the craniocaudal and mediolateral oblique views along with computer-aided detection (CAD). Synthesized 2D images are generated from the tomosynthesis. FINDINGS: BREAST COMPOSITION: There are scattered areas of fibroglandular density (ACR BI-RADS breast composition Category b). BILATERAL BREASTS: No significant masses, suspicious calcifications or other abnormalities are seen in either breast. MM/MM tomosynthesis screening BI IMPRESSION: BILATERAL BREASTS: Negative, no mammographic evidence of malignancy. Normal interval follow-up is recommended in 12 months. ASSESSMENT: BI-RADS 1 - Negative RECOMMENDATION: Routine annual mammography screening. FOLLOW-UP: 1 year F/U This examination should not preclude the clinical evaluation of a suspicious palpable abnormality. This patient's information was entered into a reminder system with a target due date for their next mammogram. Electronically signed by: Stu Martin MD 11/27/2024 10:16 AM EDT Dictated By: Stu Martin MD Signed By: <Electronically signed by tSu Martin MD in OV> 11/27/24 1016 DD/ 1516 TD/TT: 11/16/24 1535 Sterile Supply Technician: us Juany Hicks MD IM BI PROCEDURES Final Result * (ABNORMAL) Vitamin D, 25-Hydroxy, Total, Immunoassay (11/02/2024 10:22 AM EDT) Vitamin D 25-OH Total 27.1(L) >30 ng/mL [facility] Comment: Health Based Reference Values*< 20 ng/mL Isnrfdele84-24 ng/mL Insufficient> 30 ng/mL Sufficient*Artie RIVERA. N [...] 10:22 AM EDT 11/02/2024 11:02 AM EDT Juany Hicks MD LAB BLOOD ORDERABLES Final Resul t [facility] [address] [place] [phone] * Vitamin B12 (Cobalamin) and Folate Panel, Serum (11/02/2024 10:22 AM EDT) Vitamin B12 524 200 - 900 pg/mL [facility] Comment:NORMAL 200-900 PG/ML INDETERMINATE 160-199 PG/ML DEFICIENT < 160 PG/ML Folate 8.0 > or = 4.0 ng/mL [facility] Comment:Reference Values:> o r = 4.0 ng/mL< 4.0 ng/mL suggests folate deficiency Methotrexate, aminopterin and folinic acid(leucovorin) are chemotherapeutic agents whose molecularstructures are similar to folate; therefore, the Architectfolate assay cannot be used for patients using these drugs. Blood 11/02/2024 10:2 2 AM EDT 11/02/2024 11:02 AM EDT us Juany Hicks MD LAB BLOOD ORDERABLES Final Resul t Performing Organization Address [facility] Co de Phone Number [facility] [address] [place] [address] [phone] * (ABNORMAL) Lipid Panel with Reflex to Direct LDL (11/02/2024 10:22 AM EDT) Triglycerides 80 <150 mg/dL [facility] Comment:Desirable Triglyceri de: less than 150 mg/dLBorderline High Triglyceride 150-199 mg/dLHigh Triglyceride: 200-499 mg/dLVery High Triglyceride: greater than or equal to 5OO mg/dL Cholesterol 231(H) <200 mg/dL [facility] Comment:Desirable Cholestero l: less than 200 mg/dLBorderline High Cholesterol: 200-239 mg/dLHigh Cholesterol: greater than 239 mg/dL LDL Cholesterol Calculated 147(H) <100 mg/dL [facility] Comment:Desirable LDL: less than 100 mg/dLNear Optimal/Above Optimal LDL: 110- 129 mg/dLBorderline High LDL: 130-159 mg/dLHigh LDL: 160-189 mg/dLVery High LDL: greater than or equal to 190 mg/dL HDL Cholesterol 68 >40 mg/dL [facility] Comment:Desirable HDL: great er than 40 mg/dL Note: This HDL assay may give artificially low results in patients with liver disease. Blood 11/02/2024 10:2 2 AM EDT 11/02/2024 11:02 AM EDT Juany Hicks MD LAB BLOOD ORDERABLES Final Resul t Performing Organization Address [facility]/ZIP Co de Phone Number [facility] [address] [place] [address] [phone] * (ABNORMAL) Iron And Total Iron Binding Capacity (11/02/2024 10:22 AM EDT) Iron 47 30 - 160 mcg/dL [facility] Total Iron Binding Capacity 335 228 - 428 mcg/dL [facility] Percent Iron Saturation 14(L) 15 - 50 % [facility] Unsaturated Iron Binding 288 ug/dL [facility] Blood Venous blood specimen / Unknown 11/02/2024 10:22 AM EDT 11/02/2024 11:02 AM EDT us Laura Durant CDL A DRIVER LAB BLOOD ORDERABLES Final Resul t Performing Organization Address [facility] Co de Phone Number [facility] [address] [place] [address] [phone] * Urinalysis w/reflex microscopic (11/02/2024 10:22 AM EDT) Color Urine Yellow [facility] Appearance Urine Clear [facility] PH 6.0 5.0 - 9.0 [facility] Glucose Urine UA Negative Negative mg/dL [facility] Urine Blood Negative Negative [facility] Specific [place] - Urine 1.010 1.005 - 1.025 [facility] Urine Protein Negative Neg-Trace mg/dL [facility] Urine Ketones Negative Negative mg/dL [facility] Nitrite Urine Negative Negative [facility] Leukocyte Esterase Urine Negative Negative [facility] 11/02/2024 10:2 2 AM EDT 11/02/2024 10:56 AM EDT Narrative [facility] - 11/02/2024 11:16 AM EDT Urine, Clean Catch us Generic External Data Provider LAB URINE ORDERAB LES Final Result Performing Organization Address [facility] Co de Phone Number [facility] [address] [place] [address] [phone] * Hemoglobin A1c (11/02/2024 10:22 AM EDT) Hemoglobin A1c 5.0 <6.0 % [facility] Comment:Hemoglobin A1C Refer ence Range Adults: 4.8 - 6.0 % Non diabetic: < 6.0 % Goal: < 7.0 %Additional Action Suggested: > 8.0 %Note: Hemoglobin A1c results are invalid for patients with abnormal amounts of HbF. Blood transfusions may impact the HbA1c concentration in the patient sample. Estimated Average Glucose 97 mg/dL [facility] Comment:eAG = Estimated ave rage glucose which is %A1C expressed asaverage glucose, using the formula of the Q7E-YaqcmubIeqkvmy Glucose study (ADAG), Diabetes Care, Vol.31,#8,Dec. 2007 Blood Venous blood specimen / Unknown 11/02/2024 10:22 AM EDT 11/02/2024 11:02 AM EDT us Juany Hicks MD LAB BLOOD ORDERABLES Final Resul t Performing Organization Address [facility] Co de Phone Number [facility] [address] [place] [phone] * TSH with Reflex to Free T4 (11/01/2024 4:27 PM EDT) TSH reflex Free T4 1.82 0.32 - 4.0 uIU/mL [facility] 11/01/2024 4:27 PM EDT 11/01/2024 4:28 PM EDT us Generic External Data Provider LAB BLOOD ORDERAB LES Final Result Performing Organization Address [facility] de Phone Number [facility] [address] [place] [phone] * (ABNORMAL) Ferritin (11/01/2024 4:27 PM EDT) Ferritin 7(L) 10 - 250 ng/mL [facility] 11/01/2024 4:27 PM EDT 11/01/2024 4:28 PM EDT us Generic External Data Provider LAB BLOOD ORDERAB LES Final Result Performing Organization Address [facility] Co de Phone Number [facility] [address] [place] [phone] * (ABNORMAL) Urinalysis, Complete, with Reflex to Culture (11/01/2024 4:23 PM EDT) Color Urine Yellow [facility] Appearance Urine Clear [facility] PH 6.5 5.0 - 9.0 [facility] Glucose Urine UA Negative Negative mg/dL [facility] Urine Blood Negative Negative [facility] Specific [place] - Urine 1.010 1.005 - 1.025 [facility] Urine Protein Negative Neg-Trace mg/dL [facility] Urine Ketones Negative Negative mg/dL [facility] Nitrite Urine Negative Negative [facility] Leukocyte Esterase Urine Trace(A) Negative [facility] RBC Urine 0-2 0 - 2 /HPF [facility] Urine WBC 6-10(A) 0 - 5 /HPF [facility] Urine Squamous Epithelial Cell 6-10 0 - 2 /HPF [facility] Urine Bacteria 1+ None Seen [facility] Hyaline Casts, Urine 0-2 0 - 2 /LPF [facility] 11/01/2024 4:23 PM EDT 11/01/2024 5:03 PM EDT Narrative [facility] - 11/01/2024 5:32 PM EDT [id number], Clean Catch us Generic External Data Provider LAB URINE ORDERAB LES Final Result [facility] [address] [place] [phone] * Culture, Urine, Routine (11/01/2024 12:00 AM EDT) Urine Urine specimen obtained by clean catch procedure / Unknown 11/01/2024 11/01/2024 Comment:[facility] Narrative [facility] - 11/03/2024 11:45 AM EDT Urine Culture Report Result Urine Culture > 100,000 cfu/ml Urine Culture Mixed bacterial aster characteristic of Urine Culture urogenital contamination. Specimen Source: Urine clean catch us Generic External Data Provider LAB MICROBIOLOGY - GENERAL ORDERABLES Final Result [facility] [address] [place] [phone] * FL Esophagus Barium Swallow (10/03/2024 9:00 AM EDT) Anatomical Region Laterality Modality Head, Neck Radiographic Yudi ging 10/03/2024 9:00 AM EDT Narrative 10/03/2024 11:47 AM EDT [address] [address] Fluoroscopy Report Signed Patient: Lucas Brown MR#: [id number] 268 : 1975 Acct:[id number] Age/Sex: 49 / F ADM Date: 10/03/24 Loc: [place] Attending Dr: Fanta GANDHI Ordering Physician: Fanta Osuna Date of Service: 10/03/24 Procedure(s): FL barium swallow Accession Number(s): [id number] cc: Fanta Osuna; Juany Hicks MD EXAMINATION: [...] OV> 10/03/24 1144 DD/ 9 TD/TT: 10/03/249[address] Sterile Supply Technician: AIXA Procedure Note Donotuseinterpreter, Image - 10/03/[address] [address] Fluoroscopy Report Signed Patient: Kellen Brown#: [id number] 268 : 1975Acct:[id number] Age/Sex: 49 / FADM Date: 10/03/24 Loc: HO.XRAY Attending Dr: Fanta GANDHI Ordering Physician: Fanta Osuna Date of Service: 10/03/24 Procedure(s): FL barium swallow Accession Number(s): [id number] cc: Fanta Osuna; Juany Hicks MD EXAMINATION: [...] OV> 10/03/24 1144 DD/ 9 TD/TT: 10/03/24929 Sterile Supply Technician: AIXA [facility] External Provider IMG FLU OROSCOPY PROCEDURES Final Result * (ABNORMAL) CBC auto differential (09/26/2024 11:52 AM EDT) White Blood Count 5.1 4.8 - 10.8 X10*3/uL [facility] Red Blood Count 4.10(L) 4.20 - 5.50 X10*6/uL [facility] Hemoglobin 11.7(L) 12.0 - 16.0 g/dl [facility] Hematocrit 36.3(L) 37.0 - 47.0 % [facility] Mean Corpuscular Volume 88.5 80.0 - 98.0 fL [facility] Mean Corpuscular Hemoglobin 28.5 27.0 - 33.0 pg [facility] Mean Corpuscular HGB Conc 32.2 31.0 - 35.0 g/dl [facility] Red Cell Distribution Width 15.4 11.0 - 16.0 % [facility] Platelet Count 259 160 - 400 X10*3/uL [facility] Mean Platelet Volume 11.2 9.4 - 12.3 fL [facility] Neutrophils Percent Auto 60.7 45 - 73 % [facility] Imm Gran Pct Auto 0.4 0.0 - 0.4 % [facility] Lymphocytes Percent Auto 29.9 20 - 40 % [facility] Monocytes Percent Auto 7.8 2 - 11 % [facility] Eosinophils Percent Auto 0.6 0 - 4 % [facility] Basophils Percent Auto 0.6 0 - 2 % [facility] NRBC Pct Auto 0.0 0.0 - 0.2 /100WBC [facility] Neutrophils Absolute Auto 3.1 2.0 - 8.3 x10*3/uL [facility] Imm Gran Abs Auto 0.02 0.00 - 0.03 X10*3/uL [facility] Lymphocytes Absolute Auto 1.5 1.2 - 4.9 X10*3/uL [facility] Monocytes Absolute Auto 0.4 0.1 - 1.2 X10*3/uL [facility] Eosinophils Absolute Auto 0.0 0.0 - 0.4 X10*3/uL [facility] Basophils Absolute Auto 0.0 0.0 - 0.2 X10*3/uL [facility] NRBC Abs Auto 0.000 0.0 - 0.012 X10*3/uL [facility] 09/26/2024 11:5 2 AM EDT 09/26/2024 11:52 AM EDT us Generic External Data Provider LAB BLOOD ORDERAB LES Final Result [facility] [address] [place] [phone] * (ABNORMAL) Comprehensive Metabolic Panel (09/26/2024 11:52 AM EDT) Sodium 138 135 - 145 mmol/L [facility] Potassium 4.0 3.3 - 5.1 mmol/L [facility] Chloride 107 96 - 108 mmol/L [facility] Carbon Dioxide 24 22 - 29 mmol/L [facility] Anion Gap 11(L) 12 - 20 [facility] Urea Nitrogen (BUN) 12 9 - 16 mg/dL [facility] Creatinine, Serum 0.69 0.5 - 1.4 mg/dL [facility] Estimated Glomerular Filt Rate >60 [facility] Comment:Chronic Kidney Disea se: Estimated GFR < 60 mL/min/1.01o7Euyypo Kidney Disease: Estimated GFR < 15 mL/min/1.73m2 Glucose 88 60 - 115 mg/dL [facility] Calcium 9.4 8.4 - 10.2 mg/dL [facility] Bilirubin, Total 0.2 0.0 - 1.0 mg/dL [facility] Aspartate Amino Transferase 28 5 - 31 U/L [facility] Alanine Aminotransferase 22 0 - 31 U/L [facility] Total Protein 7.6 6.5 - 8.0 g/dL [facility] Albumin Level 4.4 3.5 - 5.0 g/dL [facility] Alkaline Phosphatase 70 39 - 117 U/L [facility] 09/26/2024 11:5 2 AM EDT 09/26/2024 11:52 AM EDT us Generic External Data Provider LAB BLOOD ORDERAB LES Final Result [facility] [address] [place] [address] [phone] * (ABNORMAL) Hm Colonoscopy (10/30/2022) Colonoscopy [...] along with historic and current clinical information. Process Lead : SEE COMMENT [facility] Comment: MXD, CT (ASCP) CT screening location: [place] [address] Infection Shift in vaginal aster suggestive of bacterial vaginosis. [facility] Interpretation/R esult: Negative for intraepithelial lesion or malignancy. [facility] LMP: NONE [facility] Prev. BX: NONE [facility] Prev. PAP: NONE [facility] SOURCE: None given [facility] Statement Of Adequacy: SEE COMMENT [facility] Comment: Satisfactory for evaluation. Endocervical/transformation zone component absent. Age and/or menstrual status not provided 09/18/2020 4:28 PM EDT us Paula Culp NP LAB PATHOLOGY ORDERABLES Final Result Performing Organization Address City/[facility]/ZIP Co de Phone Number [facility] [address] * HPV GENOTYPES 16,18/45 (09/18/2020 4:28 PM EDT) HPV 16 RNA NOT DETECTED NOT DETECTED [facility] HPV 18/45 RNA NOT DETECTED NOT DETECTED [facility] Comment: Methodology: [employer] Mediated Amplification The analytical performance characteristics of this assay have been determined by [employer]. The modifications have not been cleared or approved by the FDA. This assay has been validated pursuant to the CLIA regulations and is used for clinical purposes. 09/18/2020 4:28 PM EDT Paula Culp NP LAB CYTOLOGY ORDERABLES Final R esult [facility] [address] * HEPATITIS C AB W/REFL TO HCV RNA, QN, PCR (12/20/2019 11:23 AM EDT) Pathologist [facility] HEPATITIS C ANTIBODY NON-REACT DIAMOND NON-REACT DIAMOND [facility] INDEX 0.02 <1.00 [facility] Comment: HCV antibody was non-reactive. There is no laboratory evidence of HCV infection. In most cases, no further action is required. However, if recent HCV exposure is suspected, a test for HCV RNA (test code 39888) is suggested. For additional information please refer to http://[employer]/faq/FPM56q1 (This link is being provided for informational/ educational purposes only.) HEPATITIS C ANTIBODY NON-REACT DIAMOND NON-REACT DIAMOND [facility] INDEX 0.02 <1.00 [facility] Comment: HCV antibody was non-reactive. There is no laboratory evidence of HCV infection. In most cases, no further action is required. However, if recent HCV exposure is suspected, a test for HCV RNA (test code 59407) is suggested. For additional information please refer to http://[employer]/faq/OGC93y6 (This link is being provided for informational/ educational purposes only.) HEPATITIS C ANTIBODY NON-REACT DIAMOND NON-REACT DIAMOND [facility] INDEX 0.02 <1.00 [facility] Comment: HCV antibody was non-reactive. There is no laboratory evidence of HCV infection. In most cases, no further action is required. However, if recent HCV exposure is suspected, a test for HCV RNA (test code 92039) is suggested. For additional information please refer to http://flck.me/faq/OKQ04m2 (This link is being provided for informational/ educational purposes only.) HEPATITIS C ANTIBODY NON-REACT DIAMOND NON-REACT DIAMOND [facility] INDEX 0.02 <1.00 [facility] Comment: HCV antibody was non-reactive. There is no laboratory evidence of HCV infection. In most cases, no further action is required. However, if recent HCV exposure is suspected, a test for HCV RNA (test code 54140) is suggested. For additional information please refer to http://flck.me/faq/OMH22u1 (This link is being provided for informational/ educational purposes only.) 12/20/2019 11:2 3 AM EDT us Juany Hicks MD HISTORICAL/NON ORDERABLE LABS Fi nal Result [facility] [address] * HIV 1/2 ANTIGEN/ANTIBODY,FOURTH GENERATION W/RFL (12/20/2019 11:23 AM EDT) HIV-1/2 ANTIGEN AND ANTIBODIES, 4TH GENERATION W/ REFLEX NON-REACT DIAMOND NON-REACT DIAMOND [facility] Comment: HIV-1 antigen and HIV-1/HIV-2 [...] purpose. For additional information please refer to http://[employer]/faq/IKA958 (This link is being provided for informational/ [...] purpose. For additional information please refer to http://Viralica.Aetern[employer]LED.Canvace/faq/ELG098 (This link is being provided for informational/ educational purposes only.) The performance of this assay has not been clinically validated in patients less than 2 years old. HIV-1/2 ANTIGEN AND ANTIBODIES, 4TH GENERATION W/ REFLEX NON-REACT DIAMOND NON-REACT DIAMOND [facility] Comment: HIV-1 antigen and HIV-1/HIV-2 [...] purpose. For additional information please refer to http://Viralica.AeternusLED.Canvace/faq/HXI719 (This link is being provided for informational/ [...] purpose. For additional information please refer to http://education.Our Family Kitchen/faq/QBM538 (This link is being provided for informational/ educational purposes only.) The performance of this assay has not been clinically validated in patients less than 2 years old. 12/20/2019 11:2 3 AM EDT us Juany Hicks MD LAB BLOOD ORDERABLES Final Resul t Performing Organization Address City/State/[facility] Co tn Phone Number [facility] [address] from Last 3 Months or Most Recently Relevant to Health Maintenance Insurance * Guarantor: Lucas Brown Account Type Relation to Patient Date of Phone Billing Address Personal/Family Self [address] DANIELLE Mcclellan14 Care Teams Capsule Inspector Relationship Specialty Start Date End Date Juany Hicks MD [address] [place] [id number] PCP - General Family Medicine 05/03/18 Mart De La Fuente, MARISABEL [address] [place] [address] Registered Nurse Family Medicine 11/06/24 Kylie Frey 11/06/24 Enrrique August [address] [place] [address] 3rd [place] [address] Gastroenterology 11/17/24
== END 2024-12-13 14:18 | disposition home or self-care (01) ==
LOC: HO.HGI 13:39
PROVIDERS: PCP Family Medicine; Visit Provider Nurse Practitioner
DX: D64.9 Anemia, unspecified (principal); R10.10 Upper abdominal pain, unspecified; K21.9 Gastro-esophageal reflux disease without esophagitis
CPT/HCPCS: 99213

== ENCOUNTER 2025-01-16 14:41 | Outpatient (REF) | payer MEDICAID, SELFPAY ==
--- NOTE | 2025-01-16 14:45 | PFT_ITS ---
Flows: FEV1: 80 % of predicted at 2.02 L FVC: 90 % of predicted at 2.82 L FEV1/FVC: 72 % Bronchodilator response: Present in small to medium airways only Volumes: Total lung capacity: 87 % of predicted at 4.06 L Residual volume: 94 % of predicted at 1.24 L Slow vital capacity: 83 % of predicted at 2.82 L Expiratory reserve volume: 60 % of predicted at 0.56 L Diffusion capacity: Mildly decreased Impression: No obstructive or restrictive ventilatory defects. Bronchodilator response is present in small to medium airways only. Decreased diffusion capacity suggests emphysema. MTDD
[2025-01-16 15:21] VITALS: PULSE 108; O2SAT 100
--- OUTSIDE RECORDS SUMMARY | 2025-01-16 18:22 | XMS_ITS ---
Author Organization [employer] Address [address] [place] [address] Care Team Providers Care Electronic Drafter Name Role Phone Juany Hicks MD Primary Care Provider Mart De La Fuente RN Unavailable [phone] Kylie Frey Unavailable Unavailable August Unavailable [facility] Complex Status:Identified (Enrolling) Start date:11/06/2024 Enrollment reason:ADT Feed Overview [facility] 11/03/24 Case Team Name Relationship Phone Kylie Frey(Responsible Staff) Continued Care and Services Coordination"
--- OUTSIDE RECORDS SUMMARY | 2025-01-16 18:22 | XMS_ITS | Encounter Summary ---
Author Organization [employer] Address [address] [place] [address] [address] [place] [address] Care Team Providers Care Plate Molder Name Role Phone Juany Hicks MD Primary Care Provider Mart De La Fuente RN Unavailable [phone] Kylie Frey Unavailable Unavailable August Unavailable Reason for Visit * Reason Onset Date Comments Returning Call Back 05/11/2022 Encounter Details Date Type Department Care Team (Late st Contact Info) Description 05/11/2022 Telephone [facility] [address] [place], [place] [phone] Juany Hicks MD [address] [place], [place] [phone] Returning Call Back Social History Tobacco Use Types Packs/Day Years Used Date Smoking Tobacco: Never Passive Smoke Exposure: Never Smokeless Tobacco: Never Comments Unknown Sex and Gender Information Value Date Recorded Sex Assigned at Female 03/02/2022 10:16 AM EDT Legal Sex Female 10:16 AM EDT Gender Identity Female 03/02/2022 10:16 AM EDT Sexual Orientation Straight 03/02/2022 10 :16 AM EDT COVID-19 Exposure Response Date Recorded In the last 10 days, have yo u been in contact with someone who was confirmed or suspected to have Coronavirus/COVID-19? No / Unsure 04/14/2022 3:18 PM EST documented as of this encounter Miscellaneous Notes * Telephone Encounter - oJ Pagan - 05/11/2022 2:35 PM EST Tc from patient returning team nurse call back, regarding CT scan results. Patient is also calling in regards to lab test orders not being available at the lab when she came last week. documented in this encounter Plan of Treatment Upcoming Encounters Date Type Department Care Team (Late st Contact Info) Description 02/05/2025 1:45 PM EDT Office Visit [facility] [address] [place] [address] Juany Hicks MD [address] [place] [address] documented as of this encounter Visit Diagnoses Not on filedocumented in this encounter Care Teams Plate Molder Relationship Specialty Start Date End Date Juany Hicks MD [address] [place] [address] PCP - General Family Medicine 05/03/18 Mart De La Fuente, MARISABEL [address] [place] [address] Registered Nurse Family Medicine 11/06/24 Kylie Frey 11/06/24August [address] [place] [address] 3rd [place] [address] Gastroenterology 11/17/24 documented as of this encounter
--- OUTSIDE RECORDS SUMMARY | 2025-01-16 18:22 | XMS_ITS | Clinical Summary ---
Author Organization [employer] Address [address] [facility] [address] [place] [address] Care Team Providers Care Hearing And Speech Assistant Name Role Phone Juany Hicks MD Primary Care Provider [phone] Mart De La Fuente RN Unavailable [phone] Kylie Frey Unavailable Unavailable August Unavailable [...] by mouth Once per day. 90 tablet 11/03/19 25 026 Active escitalopram (Lexapro) 5 MG tablet Take 1 tablet (5 mg) by mouth Once per day. 90 tablet 11/03/19 25 025 Active cetirizine (ZyrTEC) 10 MG tabletIndications: Chronic rhinosinusitis Take 1 tablet (10 mg) by mouth Once per day. 90 tablet 11/03/19 25 Active fluticasone (Flonase) 50 MCG/ACT nasal spray Administer 1 spray into each nostril Once per day. Shake gently. Before first use, prime pump. After use, clean tip and replace cap. 16 g 11 11/03/19 25 Active ferrous sulfate 325 (65 Fe) MG tablet Take 1 tablet (325 mg) by mouth every other day. 45 tablet 3 11/03/19 25 Active famotidine (Pepcid) 40 MG tablet Take 40 mg by mouth at bedtime. 09/27/19 25 Active pantoprazole (ProtoNix) 40 MG EC tablet Take 40 mg by mouth before breakfast. Do not crush, chew, or split. Active doxycycline (Vibra-Tabs) 100 MG tablet Take 1 tablet (100 mg) by mouth 2 times daily for 10 days. Take with a full glass of water and do not lie down for at least 30 minutes after. 20 tablet 12/12/19 25 025 celecoxib (CeleBREX) 200 MG capsule Take 1 capsule (200 mg) by mouth 2 times daily for 10 days. 20 capsule 12/12/19 25 025 Active Problems Problem Noted Date Diagnosed Date Headache 11/16/2024 Assessment & Plan (11/16/2024 5:29 AM EDT): - Multifactorial: Tension; sinus; possibly migraine - Optimize treatment for allergic rhinitis. Referred back to ENT. - Work on stress reduction - Start [id number] mg every morning Tubular adenoma of colon 11/16/2024 Assessment & Plan (11/16/2024 5:38 AM EDT): - Colonoscopy on 10/30/2022. [facility]. Tubular adenoma. - Next colonoscopy in [...] Plan (11/02/2024 4:58 AM EDT): Followed by [facility] Hx YOJANA-III LEEP and Cone Bx in 2014 Most recent PAP 09/18/20 NILM with negative high risk HPV Assessment & Plan (04/14/2022 5:44 PM EST): Followed by [facility] Hx YOJANA-III LEEP and Cone Bx in 2014 Most recent PAP 09/18/20 NILM with negative high risk HPV History of cervical dysplasia 08/27/2014 Assessment & Plan (11/16/2024 5:40 AM EDT): Followed by [facility] Hx YOJANA-III LEEP and Cone Bx in 2014 Most recent PAP 09/18/20 NILM with negative high risk HPV Anxiety 08/27/2014 Asthma 08/27/2014 Chronic back pain 08/27/2014 Backache 06/13/2012 Gastroesophageal reflux disease 03/23/2012 Assessment & Plan (11/16/2024 5:37 AM EDT): - Following with [facility], recommended to take pantoprazole and famotidine - Patient states that she has been taking pantoprazole only Irritable bowel syndrome 03/23/2012 Assessment & Plan (11/16/2024 5:36 AM EDT): - Following with [facility], last seen on 11/01/2024 - Continue [...] organization. Date Type Department Care Team Description 12/13/2024 Orders Only GENERIC EXTERNAL DATA DEPARTMENT Provider, [facility] External Data 12/11/2024 2:00 PM EDT Office Visit [facility] [address] [place] [phone] Name, MD Andrés Abscess or cellulitis of toe, right (Primary Dx); [place] of toe 12/11/2024 Travel 11/17/2024 Orders Only [facility] External Provider, [facility] 11/16/2024 Orders Only [facility] MEDICINE [address] [place] [phone] Juany Hicks MD Iron deficiency anemia, unspecified iron deficiency anemia type (Primary Dx) 11/06/2024 Patient Outreach [facility] [address] [place] [phone] Juany Hicks MD Care Coordination (C3CM- chart review) 11/06/2024 Patient Outreach [address] [address] Juany Hicks MD 11/02/2024 9:00 AM EDT Office Visit [address] [address] Juany Hicks MD Routine general medical examination [...] stress 11/02/2024 Travel 11/01/2024 Telephone [facility] [address] [place] [phone] Juany Hicks MD CHART PREP from Last 3 Months Immunizations Immunization Administration [...] your housing situation today? I have nae sing 11/02/[address] you li [...] 11/02/2024 9:12 AM EDT Plan of Treatment Upcoming Encounters Date Type Department Care Team (Late st Contact Info) Description 02/05/2025 1:45 PM EDT Office Visit [facility] [address] [place] [address] Juany Hicks MD [address] [place] [address] Health Maintenance Due Date Last Done Comments CT Colonography 1975 FIT DNA/Cologuard 1975 FIT 1975 FOBT 1975 SDOH Screening 1975 Sigmoidoscopy 1975 Family Planning (PISQ) 02/05/1991 Hepatitis B Vaccines (2 of 3 - 19+ 3-dose series) 11/30/2024 11/02/2024 COVID-19 Vaccine (3 - 2024- season) 2025 06/04/2021, 05/07/2021 Influenza Vaccine (#1) 2025 , 06/04/2021, 03/22/2020, Additional history exists Depression Monitoring 05/05/2025 11/02/2024, 025 Cervical Cancer Screening 09/18/2025 HPV/Cotest 09/18/2025 09/18/2020 Pap Smear 09/18/2025 09/18/2020 Alcohol/Substance Use Screening 11/02/2025 11/02/2024 Disability Screening 11/02/2025 11/02/2024 Tobacco Screening 11/02/2025 11/02/2024 Zoster Vaccines (1 of 2) 02/05/2026 Mammogram 11/16/2026 11/16/2024, 08/31, 10/06/2017 Colonoscopy 10/31/2027 10/30/2022 Colorectal Cancer Screening [...] Procedure Name Priority Date/Time Associated Diagnosis Comments FERRITIN Routine 12/13/2024 2:40 PM EDT CBC WITH AUTO DIFFERENTIAL Routine 12/13/2024 2:40 PM EDT US ABDOMEN COMPLETE Routine 11/17/2024 2 :08 [...] URINE, ROUTINE Routine 11/01/2024 12:00 AM EDT HM COLONOSCOPY Routine 10/30/2022 HPV GENOTYPES 16,18/45 Routine 4:28 PM EDT THINPREP PAP Routine 09/18/2020 4:28 PM EDT ZZZ HISTORICAL HEPATITIS C AB W/REFL TO HCV RNA, QN, PCR Routine 12/20/2019 11:23 AM EDT HIV 1/2 ANTIGEN/ANTIBODY, FOURTH GENERATION W/RFL Routine 12/20/2019 11:23 AM EDT from Last 3 Months or Most Recently Relevant to Health Maintenance Results * (ABNORMAL) CBC auto differential (12/13/2024 2:40 PM EDT) White Blood Count 5.9 4.8 - 10.8 X10*3/uL [facility] Red Blood Count 3.98(L) 4.20 - 5.50 X10*6/uL [facility] Hemoglobin 12.2 12.0 - 16.0 g/dl [facility] Hematocrit 36.8(L) 37.0 - 47.0 % [facility] Mean Corpuscular Volume 92.5 80.0 - 98.0 fL [facility] Mean Corpuscular Hemoglobin 30.7 27.0 - 33.0 pg [facility] Mean Corpuscular HGB Conc 33.2 31.0 - 35.0 g/dl [facility] Red Cell Distribution Width 16.6(H) 11.0 - 16.0 % [facility] Platelet Count 247 160 - 400 X10*3/uL [facility] Mean Platelet Volume 11.0 9.4 - 12.3 fL [facility] Neutrophils Percent Auto 54.7 45 - 73 % [facility] Imm Gran Pct Auto 0.3 0.0 - 0.4 % [facility] Lymphocytes Percent Auto 34.2 20 - 40 % [facility] Monocytes Percent Auto 8.9 2 - 11 % [facility] Eosinophils Percent Auto 1.2 0 - 4 % [facility] Basophils Percent Auto 0.7 0 - 2 % [facility] NRBC Pct Auto 0.0 0.0 - 0.2 /100WBC [facility] Neutrophils Absolute Auto 3.3 2.0 - 8.3 x10*3/uL [facility] Imm Gran Abs Auto 0.02 0.00 - 0.03 X10*3/uL [facility] Lymphocytes Absolute Auto 2.0 1.2 - 4.9 X10*3/uL [facility] Monocytes Absolute Auto 0.5 0.1 - 1.2 X10*3/uL [facility] Eosinophils Absolute Auto 0.1 0.0 - 0.4 X10*3/uL [facility] Basophils Absolute Auto 0.0 0.0 - 0.2 X10*3/uL [facility] NRBC Abs Auto 0.000 0.0 - 0.012 X10*3/uL [facility] 12/13/2024 2:40 PM EDT 12/13/2024 2:40 PM EDT us Generic External Data Provider LAB BLOOD ORDERAB LES Final Result [facility] [address] [place], [place] [phone] * Ferritin (12/13/2024 2:40 PM EDT) Only the most recent of2 resultswithin the time period is included. Ferritin 32 10 - 250 ng/mL [facility] 12/13/2024 2:40 PM EDT 12/13/2024 2:40 PM EDT us Generic External Data Provider LAB BLOOD ORDERAB LES Final Result [facility] [address] [place] [phone] * US Abdomen Complete (11/17/2024 2:08 PM EDT) Anatomical Region Laterality Modality Abdomen Ultrasound 11/17/2024 2:08 PM EDT Narrative 11/17/2024 2:09 PM EDT [address] [address] Ultrasound Report Signed Patient: Lucas Brown MR#: [id number] 268 : 1975 Acct:[id number] Age/Sex: 49 / F ADM Date: 11/17/24 Loc: HO.US Attending Dr: Fanta GANDHI Ordering Physician: Fanta Osuna Date of Service: 11/17/24 Procedure(s): US abdomen complete Accession Number(s): [id number] cc: Fanta Osuna; Juany Hicks MD CLINICAL [...] signed by Angelita Owens MD in OV> 11/17/241408 DD/ 07 TD/TT: 11/17/241407 Guest Services Coordinator: Procedure Note Donotuseinterpreter, Image - 11/17/2024 [place] [address] Ultrasound Report Signed Patient: Kellen Brown#: [id number] 268 : 1975Acct:[id number] Age/Sex: 49 / FADM Date: 11/17/24 Loc: HO.US Attending Dr: Fanta GANDHI Ordering Physician: Fanta Osuna Date of Service: 11/17/24 Procedure(s): US abdomen complete Accession Number(s): [id number] cc: Fanta Osuna; Juany Hicks MD CLINICAL [...] by Angelita Owens MD in OV> 11/17/24 140 DD/ 07 TD/TT: 11/17/241407 Guest Services Coordinator: us [facility] External Provider IMG US PROCEDURES Final Result * BI Mammogram Screening Tomosynthesis Bilateral (11/16/2024 3:16 PM EDT) Anatomical Region Laterality Modality Breast Bilateral Mammography 11/16/2024 3:16 PM EDT Narrative 11/27/2024 10:19 AM EDT [facility] [address] [place], [place] [address] Mammography Report Signed Patient: Lucas Brown MR#: [id number] 268 : 1975 Acct:[id number] Age/Sex: 49 / F ADM Date: 11/16/24 Loc: HO.MAMMO Attending Dr: Juany Hicks MD Ordering Physician: Juany Hicks MD Results: 1Negative Date of Service: 11/16/24 Follow Up: 1 Year From [facility] Mammogram Procedure(s): MM tomosynthesis screening BI Accession Number(s): [id number] cc: Juany Hicks MD EXAMINATION: MM SCREENING [...] 11/27/24 1016 DD/ 1516 TD/TT: 11/16/24 1535 Guest Services Coordinator: Procedure Note Donotdamiinterpreter, Image - 11/27/2024 [facility] [address] [place] [address] Mammography Report Signed Patient: Kellen Brown#: [id number] 268 : 1975Acct:[id number] Age/Sex: 49 / FADM Date: 11/16/24 Loc: MAMMO Attending Dr: Juany Hicks MD Ordering Physician: Juany Hicks MDResults: 1Negative Date of Service: 11/16/24Follow Up: 1 Year From Orig inal Mammogram Procedure(s): MM tomosynthesis screening BI Accession Number(s): [id number] cc: Juany Hicks MD EXAMINATION: MM SCREENING [...] 11/27/24 1016 DD/ 1516 TD/TT: 11/16/24 1535 Guest Services Coordinator: Juany Hicks MD IMG BI PROCEDURES Final Result * (ABNORMAL) Vitamin D, 25-Hydroxy, Total, Immunoassay (11/02/2024 10:22 AM EDT) Vitamin D 25-OH Total 27.1(L) >30 ng/mL [facility] Comment: Health Based Reference Values*< 20 ng/mL Bttzsbvsy27-89 ng/mL Insufficient> 30 ng/mL Sufficient*Artie RIVERA. N [...] MD LAB BLOOD ORDERABLES Final Resul t [facility] [address] [place] [address] [phone] * Vitamin B12 (Cobalamin) and Folate Panel, Serum (11/02/2024 10:22 AM EDT) Vitamin B12 524 200 - 900 pg/mL [facility] Comment:NORMAL 200-900 PG/ML INDETERMINATE 160-199 PG/ML DEFICIENT < 160 PG/ML Folate 8.0 > or = 4.0 ng/mL [facility] Comment:Reference Values:> o r = 4.0 ng/mL< 4.0 ng/mL suggests folate deficiency Methotrexate, aminopterin and folinic acid(leucovorin) are chemotherapeutic agents whose molecularstructures are similar to folate; therefore, the Architectfolate assay cannot be used for patients using these drugs. Blood 11/02/2024 10:2 2 AM EDT 11/02/2024 11:02 AM EDT us Juany Hicks MD LAB BLOOD ORDERABLES Final Resul t [facility] [address] [place] [phone] * (ABNORMAL) Lipid Panel with Reflex to Direct LDL (11/02/2024 10:22 AM EDT) Triglycerides 80 <150 mg/dL [facility] Comment:Desirable Triglyceri de: less than 150 mg/dLBorderline High Triglyceride 150-199 mg/dLHigh Triglyceride: 200-499 mg/dLVery High Triglyceride: greater than or equal to 5OO mg/dL Cholesterol 231(H) <200 mg/dL [facility] Comment:Desirable Cholestero l: less than 200 mg/dLBorderline High Cholesterol: 200-239 mg/dLHigh Cholesterol: greater than 239 mg/dL LDL Cholesterol Calculated 147(H) <100 mg/dL [facility] Comment:Desirable LDL: less than 100 mg/dLNear Optimal/Above Optimal LDL: 110- 129 mg/dLBorderline High LDL: 130-159 mg/dLHigh LDL: 160-189 mg/dLVery High LDL: greater than or equal to 190 mg/dL HDL Cholesterol 68 >40 mg/dL [facility] Comment:Desirable HDL: great er than 40 mg/dL Note: This HDL assay may give artificially low results in patients with liver disease. Blood 11/02/2024 10:2 2 AM EDT 11/02/2024 11:02 AM EDT us Juany Hicks MD LAB BLOOD ORDERABLES Final Resul t Performing Organization Address [facility] Co de Phone Number [facility] [address] [place] [phone] * (ABNORMAL) Iron And Total Iron Binding Capacity (11/02/2024 10:22 AM EDT) Iron 47 30 - 160 mcg/dL [facility] Total Iron Binding Capacity 335 228 - 428 mcg/dL [facility] Percent Iron Saturation 14(L) 15 - 50 % [facility] Unsaturated Iron Binding 288 ug/dL [facility] Blood Venous blood specimen / Unknown 11/02/2024 10:22 AM EDT 11/02/2024 11:02 AM EDT us Laura Durant NP LAB BLOOD ORDERABLES Final Resul t Performing Organization Address [facility] de Phone Number [facility] [address] [place] [phone] * Urinalysis w/reflex microscopic (11/02/2024 10:22 AM EDT) Color Urine Yellow [facility] Appearance Urine Clear [facility] PH 6.0 5.0 - 9.0 [facility] Glucose Urine UA Negative Negative mg/dL [facility] Urine Blood Negative Negative [facility] Specific [place] - Urine 1.010 1.005 - 1.025 [facility] Urine Protein Negative Neg-Trace mg/dL [facility] Urine Ketones Negative Negative mg/dL [facility] Nitrite Urine Negative Negative [facility] Leukocyte Esterase Urine Negative Negative [facility] 11/02/2024 10:2 2 AM EDT 11/02/2024 10:56 AM EDT Narrative [facility] - 11/02/2024 11:16 AM EDT Urine, Clean Catch us Generic External Data Provider LAB URINE ORDERAB LES Final Result Performing Organization Address [facility] Co de Phone Number [facility] [address] [place] [phone] * Hemoglobin A1c (11/02/2024 10:22 AM EDT) Hemoglobin A1c 5.0 <6.0 % [facility] Comment:Hemoglobin A1C Refer ence Range Adults: 4.8 - 6.0 % Non diabetic: < 6.0 % Goal: < 7.0 %Additional Action Suggested: > 8.0 %Note: Hemoglobin A1c results are invalid for patients with abnormal amounts of HbF. Blood transfusions may impact the HbA1c concentration in the patient sample. Estimated Average Glucose 97 mg/dL [facility] Comment:eAG = Estimated ave rage glucose which is %A1C expressed asaverage glucose, using the formula of the F1M-GkfccxyUdtlopf Glucose study (ADAG), Diabetes Care, Vol.31,#8,Dec. 2007 Blood Venous blood specimen / Unknown 11/02/2024 10:22 AM EDT 11/02/2024 11:02 AM EDT us Juany Hicks MD LAB BLOOD ORDERABLES Final Resul t Performing Organization Address [facility]/ZIP Co de Phone Number [facility] [address] [place] [phone] * TSH with Reflex to Free T4 (11/01/2024 4:27 PM EDT) TSH reflex Free T4 1.82 0.32 - 4.0 uIU/mL [facility] 11/01/2024 4:27 PM EDT 11/01/2024 4:28 PM EDT Generic External Data Provider LAB BLOOD ORDERAB LES Final Result Performing Organization Address [facility]/ZIP Co de Phone Number [facility] [address] [place] [phone] * (ABNORMAL) Urinalysis, Complete, with Reflex to Culture (11/01/2024 4:23 PM EDT) Color Urine Yellow [facility] Appearance Urine Clear [facility] PH 6.5 5.0 - 9.0 [facility] Glucose Urine UA Negative Negative mg/dL [facility] Urine Blood Negative Negative [facility] Specific [place] - Urine 1.010 1.005 - 1.025 [facility] Urine Protein Negative Neg-Trace mg/dL [facility] Urine Ketones Negative Negative mg/dL [facility] Nitrite Urine Negative Negative [facility] Leukocyte Esterase Urine Trace(A) Negative [facility] RBC Urine 0-2 0 - 2 /HPF [facility] Urine WBC 6-10(A) 0 - 5 /HPF [facility] Urine Squamous Epithelial Cell 6-10 0 - 2 /HPF [facility] Urine Bacteria 1+ None Seen [facility] Hyaline Casts, Urine 0-2 0 - 2 /LPF [facility] 11/01/2024 4:23 PM EDT 11/01/2024 5:03 PM EDT Narrative [facility] - 11/01/2024 5:32 PM EDT [id number], Clean Catch us Generic External Data Provider LAB URINE ORDERAB LES Final Result Performing Organization Address [facility]/ZIP Co de Phone Number [facility] [address] [place] [phone] * Culture, Urine, Routine (11/01/2024 12:00 AM EDT) Urine Urine specimen obtained by clean catch procedure / Unknown 11/01/2024 11/01/2024 Comment:UACC Narrative [facility] - 11/03/2024 11:45 AM EDT Urine Culture Report Result Urine Culture > 100,000 cfu/ml Urine Culture Mixed bacterial aster characteristic of Urine Culture urogenital contamination. Specimen Source: Urine clean catch us Generic External Data Provider LAB MICROBIOLOGY - GENERAL ORDERABLES Final Result [facility] [address] [place] [address] [phone] * (ABNORMAL) Hm Colonoscopy (10/30/2022) Colonoscopy [...] along with historic and current clinical information. Filler Operator : SEE COMMENT [facility] Comment: MXD, CT (ASCP) CT screening location: [place] [address] Infection Shift in vaginal aster suggestive of bacterial vaginosis. [facility] Interpretation/R esult: Negative for intraepithelial lesion or malignancy. [facility] LMP: NONE GIVEN [facility] Prev. BX: NONE GIVEN [facility] Prev. PAP: NONE GIVEN [facility] SOURCE: None given [facility] Statement Of Adequacy: SEE COMMENT [facility] Comment: Satisfactory for evaluation. Endocervical/transformation zone component absent. Age and/or menstrual status not provided 09/18/2020 4:28 PM EDT Paula Culp ENVIRONMENTAL HEALTH SAFETY MANAGER LAB PATHOLOGY ORDERABLES Final Result Performing Organization Address [facility]/ZIP Co de Phone Number [facility] [address] [place] [address], * HPV GENOTYPES 16,18/45 (09/18/2020 4:28 PM EDT) HPV 16 RNA NOT DETECTED NOT DETECTED [facility] HPV 18/45 RNA NOT DETECTED NOT DETECTED [facility] Comment: Methodology: Director Of Business Operations Mediated Amplification The analytical performance characteristics of this assay have been determined by [employer]. The modifications have not been cleared or approved by the FDA. This assay has been validated pursuant to the CLIA regulations and is used for clinical purposes. 09/18/2020 4:28 PM EDT Paula Suni ENVIRONMENTAL HEALTH SAFETY MANAGER LAB CYTOLOGY ORDERABLES Final R esult Performing Organization Address [facility] Co de Phone Number [facility] [address] [place] [address], * HEPATITIS C AB W/REFL TO HCV RNA, QN, PCR (12/20/2019 11:23 AM EDT) Pathologist [facility] HEPATITIS C ANTIBODY NON-REACT DIAMOND NON-REACT DIAMOND [facility] INDEX 0.02 <1.00 [facility] Comment: HCV antibody was non-reactive. There is no laboratory evidence of HCV infection. In most cases, no further action is required. However, if recent HCV exposure is suspected, a test for HCV RNA (test code 47270) is suggested. For additional information please refer to http://Ontodia.NitroSell/faq/WIE85z7 (This link is being provided for informational/ educational purposes only.) HEPATITIS C ANTIBODY NON-REACT DIAMOND NON-REACT DIAMOND [facility] INDEX 0.02 <1.00 [facility] Comment: HCV antibody was non-reactive. There is no laboratory evidence of HCV infection. In most cases, no further action is required. However, if recent HCV exposure is suspected, a test for HCV RNA (test code 64746) is suggested. For additional information please refer to http://Ontodia.[employer]itroSell/faq/EFG96v9 (This link is being provided for informational/ [...] a test for HCV RNA (test code 43616) is suggested. For additional information please refer to http://Gold Lasso/faq/QBJ48c6 (This link is being provided for informational/ [...] a test for HCV RNA (test code 87142) is suggested. For additional information please refer to http://[employer] L[employer]/faq/OER40w2 (This link is being provided for informational/ educational purposes only.) 12/20/2019 11:2 3 AM EDT us Juany Hicks MD HISTORICAL/NON ORDERABLE LABS Fi nal Result [facility] [address] * HIV 1/2 ANTIGEN/ANTIBODY,FOURTH GENERATION W/RFL [...] purpose. For additional information please refer to http://Ontodia.[employer]itroSell/faq/IXN810 (This link is being provided for informational/ [...] purpose. For additional information please refer to http://Gold Lasso/faq/WKZ227 (This link is being provided for informational/ [...] purpose. For additional information please refer to http://Ontodia.NitroSell/faq/VHS466 (This link is being provided for informational/ educational purposes only.) The performance of this assay has not been clinically validated in patients less than 2 years old. HIV-1/2 ANTIGEN AND ANTIBODIES, 4TH GENERATION W/ REFLEX NON-REACT DIAMOND NON-REACT DIAOMND [facility] Comment: HIV-1 antigen and [...] purpose. For additional information please refer to http://Ontodia.Vobi.[employer]/faq/BCE152 (This link is being provided for informational/ educational purposes only.) The performance of this assay has not been clinically validated in patients less than 2 years old. 12/20/2019 11:2 3 AM EDT us Juany Hicks MD LAB BLOOD ORDERABLES Final Resul t [facility] [address] from Last 3 Months or Most Recently Relevant to Health Maintenance Insurance [facility] C3 Care Teams Hearing And Speech Assistant Relationship Specialty Start Date End Date Juany Hicks MD [address] [facility] [place] [address] PCP - General Family Medicine 05/03/18 Mart De La Fuente, RN [address] [place] [address] Registered Nurse Family Medicine 11/06/24 Kylie Frey 11/06/[address] [place] [address] Gastroenterology 11/17/24
--- OUTSIDE RECORDS SUMMARY | 2025-01-16 18:22 | XMS_ITS ---
Author Organization [employer] Address [address] [place] [address] Care Team Providers Care Patient Relations Representative Name Role Phone Juany Hicks MD Primary Care Provider [phone] Mart De La Fuente RN Unavailable [phone] Kylie Frey Unavailable Unavailable August Unavailable CM Complex Status:Identified (Enrolling) Start date:11/06/2024 Enrollment reason:ADT Feed Overview ADT-[facility] ED 11/03/24 Case Team Name Relationship Phone Mart De La Fuente RN(Responsible Staff) Registered Perla rai [phone] Continued Care and Services Coordination
--- OUTSIDE RECORDS SUMMARY | 2025-01-16 18:22 | XMS_ITS | Clinical Summary ---
Author Organization [address] [facility] Address [address] [place] [address] Phone Care Team Providers Care Medical File Clerk Name Role Phone Name, Andrés LI Primary Care Provider [phone] Encounters Date Type Department Care Team Description 12/19/2024 1:00 PM EDT Consult Orthopedic Surgery [facility] [address] [phone] Sudhir Ohara DPM Cellulitis of right toe (Primary Dx); Corns and callosities; Blister of great toe of right foot, initial encounter from Last 3 Months Social History Tobacco Use Types Packs/Day Years Used Date Smoking Tobacco: Never Assessed Comments Unknown Sex and Gender Information Value Date Recorded Sex Assigned at Not on file Legal Sex Female 6:17 PM EST Gender Identity Not on file Sexual Orientation Not on file Last Filed Vital Signs Vital Sign Reading Time Taken Comments Blood Pressure - - Pulse - - Temperature - - Respiratory Rate - - Oxygen Saturation - - Inhaled Oxygen Concentration - - Weight 54.4 kg (120 lb) 12/19/2024 12:07 PM EDT Height - - Body Mass Index - - Plan of Treatment Upcoming Encounters Date Type Department Care Team (Late st Contact Info) Description 01/18/2025 11:00 AM EDT Office Visit Orthopedic Surgery [facility] [address] [phone] Sudhir Ohara DPM [address] [phone] Health Maintenance Due Date Last Done Comments Breast Cancer Screening 1975 Hepatitis A Vaccines (1 of 2 - Risk 2-dose series) 02/05/1995 Cervical Cancer Screening: Pap Smear 02/05/1997 Depression Screening 05/03/2024 Hepatitis B Vaccines (2 of 3 - 19+ 3-dose series) 11/30/2024 11/02/2024 Cholesterol Screening (Lipid Panel) 12/13/2024 Colorectal Cancer Screening: Colonoscopy 12/13/2024 Hepatitis C Screening 12/13/2024 Social Influencers of Health Screening 12/13/2024 COVID-19 Vaccine ( - season) 2025 06/04/2021, 05/07/2021 Influenza Vaccine (#1) 2025 , 06/04/2021, 03/22/2020, Additional history exists DTaP,Tdap,and Td Vaccines (3 - Td or Tdap) 11/05/2028 11/05/2018, 08/08/2010 HIV Screening Completed 12/20/2019 Pneumococcal Vaccine: Pediatrics (0 to 5 Years) and At-Risk Patients (6 to 49 Years) Completed 11/02/2024, 06/13/2012 HIB Vaccines Aged Out [...] to complete this topic RSV Immunization Patients Under 20 months Aged Out No longer eligible based on patient's age to complete this topic Varicella Vaccines Aged Out No longer eligible based on patient's age to complete this topic Insurance MEDICA[place] - [place] Care Teams Medical File Clerk Relationship Specialty Start Date End Date Name, MD Andrés [address] [place] [address] PCP - General Internal Medicine 12/13/24
--- OUTSIDE RECORDS SUMMARY | 2025-01-16 18:22 | XMS_ITS | Encounter Summary ---
Author Organization [employer] Address [address] [facility] 7t [place] [address] Care Team Providers Care Interstate Bus Dispatcher Name Role Phone Juany Hicks MD Primary Care Provider [phone] Mart De La Fuente RN Unavailable [phone] Kylie rFey Unavailable Unavailable August Unavailable Encounter Details Date Type Department Care Team (Late st Contact Info) Description 11/16/2024 Orders Only [facility] [address] [place], [place] [phone] Juany Hicks MD [address] [place], [place] [phone] Iron deficiency anemia, unspecified iron deficiency anemia type (Primary Dx) Social History Tobacco Use Types Packs/Day Years Used Date Smoking Tobacco: Every Day Cigarettes Passive Smoke Exposure: Never Alcohol Use Standard Drinks/Week Comments Never 0 [...] Orientation Straight 03/02/2022 10 :16 AM EDT documented as of this encounter Plan of Treatment Upcoming Encounters Date Type Department Care Team (Late st Contact Info) Description 02/05/2025 1:45 PM EDT Office Visit [facility] [address] [place] [address] Juany Hicks MD [address] [place] [address] Scheduled Orders Name Type Priority Associated Diagnoses Orde r Schedule CBC auto differential Lab Routine Iron deficiency anemia, unspecified iron deficiency anemia type Expected: 02/16/2025 (Approximate), Expires: 11/16/2025 Ferritin Lab Routine Iron deficiency anemia, unspecified iron deficiency anemia type Expected: 02/16/2025 (Approximate), Expires: 11/16/2025 Iron And Total Iron Binding Capacity Lab Routine Iron deficiency anemia, unspecified iron deficiency anemia type Expected: 02/16/2025 (Approximate), Expires: 11/16/2025 Vitamin B12 (Cobalamin) and Folate Panel, Serum Lab Routine Iron deficiency anemia, unspecified iron deficiency anemia type Expected: 02/16/2025 (Approximate), Expires: 11/16/2025 Reticulocyte Count Lab Routine Iron deficiency anemia, unspecified iron deficiency anemia type Expected: 02/16/2025 (Approximate), Expires: 11/16/2025 documented as of this encounter Visit Diagnoses Diagnosis Iron deficiency anemia, unspecified iron deficiency anemia type- Primary documented in this encounter Additional Health Concerns Assessment Noted Time PHQ-9 Depression Total Score: 16 025 10:00 AM EDT documented as of this encounter Care Teams Interstate Bus Dispatcher Relationship Specialty Start Date End Date Juany Hicks MD [address] [place] [address] PCP - General Family Medicine 05/03/18 Mart De La Fuente, MARISABEL [address] [place] [address] Registered Nurse Family Medicine 11/06/24 Kylie Frey 11/06/[address] [place] [address] 3rd [place] [address] Gastroenterology 11/17/24 documented as of this encounter
== END 2025-01-16 14:42 | disposition home or self-care (01) ==
LOC: HO.RESP 14:41
PROVIDERS: PCP Family Medicine; Visit Provider Family Medicine
DX: J45.20 Mild intermittent asthma, uncomplicated (principal)
CPT/HCPCS: 94010; 94640; 94727; 94729

== ENCOUNTER → 2025-01-16 14:45 | Outpatient (BNV) | payer MEDICAID, SELFPAY | PROVIDERS: PCP Family Medicine; Visit Provider Internal Medicine Pulmonary Disease | DX: R06.00 Dyspnea, unspecified (principal) | CPT/HCPCS: 94060; 94727; 94729 ==

== ENCOUNTER 2025-01-25 13:27 | Outpatient (AMB) | payer MEDICAID, SELFPAY ==
--- NOTE | 2025-01-25 13:30 | A.OFFVIS_ITS ---
Vital Signs 01/25/25 13:36 Height 5 ft 1 in Weight 122 lb 9.232 oz BMI 23.2 BP 140/80 H Blood Pressure Location Lt brachial Position Sitting Pulse 86 Intake Visit Reasons: 6w Intake Note: Patient 6 week follow up for Anemia. CC: Patient states that she continues feeling tired and also is having heartburn because she ran out of medication. Patient also c/o hemorrhoids and constipation. Eyeglass Frame Truer Required: No Accompanied by: Self / Same As Patient Allergies promethazine (From [facility]ENER[facility]) Allergy (Severe, Verified 01/25/25 13:38) FACIAL SWELLING metoclopramide Allergy (Unknown, Verified 01/25/25 13:38) neuro symptoms-face prochlorperazine Allergy (Unknown, Verified 01/25/25 13:38) memory loss chlorpheniramine (Phenagil) Adverse Reaction (Unknown, Verified 01/25/25 13:38) upset stomach HPI HPI 6w: Details: Assessment & Plan (1) Anemia: Code(s): D64.9 - Anemia, unspecified Category: Medical (2) Upper abdominal pain: Code(s): R10.10 - Upper abdominal pain, unspecified Category: Medical (3) GERD (gastroesophageal reflux disease): Code(s): K21.9 - Gastro-esophageal reflux disease without esophagitis Category: Medical Plan She tells me that she saw her primary care provider and may, and response to her anemia she has restarted her iron at 1 tablet every other day to try to avoid stomach upset. Yet she is still experiencing fatigue. I let her know that her ferritin is quite low so she is clearly either not taking in enough iron or losing it somewhere. With this date when she tells me she continues to have extremely heavy menses sometimes bleeding for 3 days in a row and this could be the source of her anemia and losses. She says her primary care provider is the 1 that manages her gynecologic issues and Pap smears so we did educate her about the possibility of utilizing oral control pills to even on her hormones. She is doing somewhat better with the pantoprazole having better and worse days with her stomach. I time she finds it beneficial to take it twice a day. I will see if I can get insurance approval for twice a day dosing to protect her stomach and offer her relief at least until we can get the endoscopy. For now we are going to repeat the CBC in the ferritin. Return office visit in 6 weeks Orders: Orders Complete Blood Count Auto Diff Today D64.9 - Anemia, unspecified Ferritin Today D64.9 - Anemia, unspecified Medications: Changed From pantoprazole (Protonix) 40 mg PO DAILY 30 days 30 tabs 6RF K21.9 - Gastro- esophageal reflux disease without esophagitis To pantoprazole (Protonix) 40 mg PO BID 60 tabs 6RF 30 days K21.9 - Gastro-eso phageal reflux disease without esophagitis Discontinued famotidine (Pepcid) Discontinued Reason: Doctor's Order 40 mg PO BEDTIME 30 tabs 6RF K21.9 - Gastro-esophageal reflux disease without esophagitis, R10.10 - Upper abdominal pain, unspecified LABS: Laboratory Tests 11/01/24 12/13/24 16:27 14:40 WBC 5.9 RBC 3.98 L Hgb 12.2 Hct 36.8 L MCV 92.5 MCH 30.7 Plt Count 247 Ferritin 7 L 32 EGD BIOPSY TODAY'S VISIT [facility] Medical History Abnormal Pap smear of cervix Chronic gastritis Anxiety Depression IBS (irritable bowel syndrome) Vitamin D deficiency Back pain GERD (gastroesophageal reflux disease) Surgical History History of esophagogastroduodenoscopy (EGD) Hx of colonoscopy H/O hemorrhoidectomy Family History Maternal Grandmother Liver cancer Maternal Uncle Throat cancer Social History Alcohol intake: never Patient Tobacco Use Status: Current everyday Tobacco user Tobacco use type: Cigarette Cigarette Packs Per Day: 5 Review of Systems Const Denies fatigue, Denies fever(s), Denies night sweats, Denies poor appetite and Denies weight loss ENT Reports Normal hearing present, Denies dental pain, Denies dysphagia, Denies hearing loss, Denies mouth pain, Denies odynophagia, Denies throat swelling, Denies tongue swelling and Reports other (Dentition adequate) Card Reports no additional complaints Resp Reports no additional complaints GI Details: Denies abdominal pain, Denies melena, Denies bloating, Reports hematochezia, Denies constipation, Denies GI cramping, Denies dysphagia, Denies excessive flatus, Denies early satiety, Reports heartburn, Denies diarrhea, Denies nausea, Denies odynophagia, Denies vomiting and Denies hematemesis Skin/Breast Denies pruritus, Denies lesions, Denies rash and Denies jaundice Neuro Reports Normal hearing present and Denies Abnormal speech present Endo Denies fatigue Aller/Immun Denies throat swelling and Denies tongue swelling Physical Exam Vital Signs: Last Vital Signs Pulse 86 01/25/25 13:36 BP 140/80 H 01/25/25 13:36 BMI result Body Mass Index 23.2 Const General: cooperative, no acute distress, well developed and well groomed Nutritional Appearance: average body habitus and well nourished Orientation/consciousness: oriented to person, oriented to place and oriented to time Limitations: No language barrier HEENT Head: Yes normocephalic and Yes atraumatic Eyes General: appearance normal, both eyes and all related structures Pupils: Equal, round and reactive pupils present Neck Neck: Yes normal visual inspection and Yes no lymphadenopathy Thyroid: Thyroid normal Resp Effort & Inspection: normal respiratory effort and able to speak in complete sentences Auscultation: clear to auscultation bilaterally Cardio Rate: regular rate Rhythm: regular rhythm Heart sounds: Normal, physiologic split S2 sound present Peripheral pulses: radial pulses present and posterior tibial pulses present GI Inspection: No distended and No Abdominal panniculus present Palpation (GI): Soft to palpation, nontender, no guarding, not rigid and No hepatosplenomegaly present Percussion: Yes normal to percussion Auscultation: normal bowel sounds Rectal Exam - Female: deferred Skin General skin exam: no rashes or lesions noted, turgor normal, skin not dry, no jaundice, No spider nevi and no striae Rashes: no rashes Nails: normal Neuro General: oriented to person, oriented to place and oriented to time Cranial nerves: Yes Equal, round and reactive pupils present and Yes Normal hearing present Speech: No Abnormal speech present Extrem General: Yes normal to inspection, No clubbing, No cyanosis and No edema Psych Appearance: grossly normal and well kempt Mental Status: mental status grossly normal Speech and movement: Normal speech and movement present Affect: normal affect Attitude: cooperative Thought process: Normal thought process present and not confabulating Thought content: Normal thought content present Insight: Limited insight present (Psych) Judgement: Limited judgement present (Psych) Assessment & Plan Assessment & Plan (1) Hemorrhoids: Code(s): K64.9 - Unspecified hemorrhoids Category: Medical (2) Anemia: Code(s): D64.9 - Anemia, unspecified Category: Medical Plan Her current GI regimen is pantoprazole 40 mg twice a day. - The patient is a 49-year-old female presenting for a follow-up for her GERD and hemorrhoids and iron-deficiency anemia. - Hemorrhoids: Reports ongoing issues with hemorrhoids. She has been applying rectal cream improperly due to lack of applicator access. No improvement noted with the current method. She has already had 2 prior hemorrhoidectomies so she is not in favor of being referred to surgery again. She tells me that her brother also suffers with severe bleeding from hemorrhoids so likely this is a bit hereditary. - Iron-Deficiency Anemia: Initially experienced upset stomach with daily dosing of iron supplements. Adjusted to every other day dosing with reported improvement in tolerance. Recent labs show improvement in anemia markers, yet remain slightly low. I will refill her pantoprazole and also extend her a te mporary refill of her iron until she sees her primary care provider since she is out at this time. Return office visit in 6 months Medications: New hydrocortisone 2.5% (Proctosol HC) BE SURE TO INCLUDE RECTAL APPICATOR!! 1 appl [place] BID 30 grams 6RF hemorrhoids K64.9 - Unspecified hemorrhoids ferrous sulfate (Jose Alberto-Time) 325 mg PO DAILY 30 tabs 3RF D64.9 - Anemia, unspecified, K64.9 - Unspecified hemorrhoids Refilled pantoprazole (Protonix) 40 mg PO BID 60 tabs 6RF 30 days K21.9 - Gastro- esophageal reflux disease without esophagitis Coding Level of Care Code Est Pt Level 3 (29447) Diagnoses Hemorrhoids K64.9 Anemia D64.9
[2025-01-25 13:36] VITALS: BP 140/80; PULSE 86; BMI 23.2
--- OUTSIDE RECORDS SUMMARY | 2025-01-25 18:02 | XMS_ITS | Encounter Summary ---
Author Organization [employer] Address [address] [place] [address] [address] [place] [address] Care Team Providers Care Supervisor Coke Handling Name Role Phone Juany Hicks MD Primary Care Provider [phone] Mart De La Fuente RN Unavailable [phone] Kylie Frey Unavailable Unavailable August Unavailable Reason for Visit * Reason Onset Date Comments Returning Call Back 05/11/2022 Encounter Details Date Type Department Care Team (Late st Contact Info) Description 05/11/2022 Telephone [facility] [address] [place], [place] [phone] Juany Hicks MD [address] [place], [place] [phone] Returning Call Back Social History Tobacco Use [...] encounter Miscellaneous Notes * Telephone Encounter - Jo Pagan - 05/11/2022 2:35 PM EST Tc [...] Description 02/05/2025 1:45 PM EDT Office Visit [facility] [address] [place] [address] Juany Hicks MD [address] [place] [address] documented as of this encounter Visit Diagnoses Not on filedocumented in this encounter Care Teams Supervisor Coke Handling Relationship Specialty Start Date End Date Juany Hicks MD [address] [place] [address] PCP - General Family Medicine 05/03/18 Mart De La Fuente, MARISABEL [address] [place] [address] Registered Nurse Family Medicine 11/06/24 Kylie Frey 11/06/24August [address] [place] [address] 3rd [place] [address] Gastroenterology 11/17/24 documented as of this encounter
--- OUTSIDE RECORDS SUMMARY | 2025-01-25 18:02 | XMS_ITS | Encounter Summary ---
Author Organization [employer] Address [address] [facility] [address] [place] [address] Care Team Providers Care Bedspread Folder Name Role Phone Juany Hicks MD Primary Care Provider [phone] Mart De La Fuente RN Unavailable [phone] Kylie Frey Unavailable Unavailable August Unavailable Encounter Details Date Type Department Care Team (Late st Contact Info) Description 11/16/2024 Orders Only [facility] [address] [place], [place] [phone] Juany Hicks MD [address] [place], [place] [phone] Iron deficiency anemia, unspecified iron deficiency anemia [...] Description 02/05/2025 1:45 PM EDT Office Visit [facility] [address] [place] [address] Juany Hicks MD [address] [place] [address] Scheduled Orders Name Type Priority Associated Diagnoses [...] documented as of this encounter Care Teams Bedspread Folder Relationship Specialty Start Date End Date Juany Hicks MD [address] [place] [address] PCP - General Family Medicine 05/03/18 Mart De La Fuente, MARISABEL [address] [place] [address] Registered Nurse Family Medicine 11/06/24 Kylie Frey 11/06/[address] [place] [address] 3rd [place] [address] Gastroenterology 11/17/24 documented as of this encounter
--- OUTSIDE RECORDS SUMMARY | 2025-01-25 18:02 | XMS_ITS ---
Author Organization [employer] Address [address] [place] [address] Care Team Providers Care Marketing Strategy Lead Name Role Phone Juany Hicks MD Primary Care Provider [phone] Mart De La Fuente RN Unavailable [phone] Kylie Frey Unavailable Unavailable August Unavailable CHW Complex Status:Identified (Enrolling) Start date:11/06/2024 Enrollment reason:ADT Feed Overview ADT-[facility] ED 11/03/24 Case Team Name Relationship Phone Kylie Frey(Responsible Staff) Continued Care and Services Coordination
--- OUTSIDE RECORDS SUMMARY | 2025-01-25 18:02 | XMS_ITS | Clinical Summary ---
Author Organization [employer] Address [address] [place] [address] [address] [place] [address] Care Team Providers Care Shop Tech Name Role Phone Juany Hicks MD Primary Care Provider [phone] Mart De La Fuente RN Unavailable [phone] Kylie Frey Unavailable Unavailable August Unavailable [...] mouth Once per day. 90 tablet 3 5 026 Active escitalopram (Lexapro) 5 MG tablet Take 1 tablet (5 mg) by mouth Once per day. 90 tablet 3 5 025 Active cetirizine (ZyrTEC) 10 MG tabletIndications: Chronic rhinosinusitis Take 1 tablet (10 mg) by mouth Once per day. 90 tablet 3 5 Active fluticasone (Flonase) 50 MCG/ACT nasal spray Administer 1 spray into each nostril Once per day. Shake gently. Before first use, prime pump. After use, clean tip and replace cap. 16 g 11 5 Active ferrous sulfate 325 (65 Fe) MG tablet Take 1 tablet (325 mg) by mouth every other day. 45 tablet 3 Active famotidine (Pepcid) 40 MG tablet Take 40 mg by mouth at bedtime. Active pantoprazole (ProtoNix) 40 MG EC tablet Take 40 mg by mouth before breakfast. Do not crush, chew, or split. Active Active Problems Problem Noted Date Diagnosed Date Headache 11/16/2024 Assessment & Plan (11/16/2024 5:29 AM EDT): - Multifactorial: Tension; sinus; possibly migraine - Optimize treatment for allergic rhinitis. Referred back to ENT. - Work on stress reduction - Start [id number] mg every morning Tubular adenoma of colon 11/16/2024 Assessment & Plan (11/16/2024 5:38 AM EDT): - Colonoscopy on 10/30/2022. [facility]. Tubular adenoma. - Next colonoscopy in [...] Plan (11/02/2024 4:58 AM EDT): Followed by [facility] INCIDENT MANAGER Hx YOJANA-III LEEP and Cone Bx in 2014 Most recent PAP 09/18/20 NILM with negative high risk HPV Assessment & Plan (04/14/2022 5:44 PM EST): Followed by [facility] INCIDENT MANAGER Hx YOJANA-III LEEP and Cone Bx in 2014 Most recent PAP 09/18/20 NILM with negative high risk HPV History of cervical dysplasia 08/27/2014 Assessment & Plan (11/16/2024 5:40 AM EDT): Followed by [facility] INCIDENT MANAGER Hx YOJANA-III LEEP and Cone Bx in 2014 Most recent PAP 09/18/20 NILM with negative high risk HPV Anxiety 08/27/2014 Asthma 08/27/2014 Chronic back pain 08/27/2014 Backache 06/13/2012 Gastroesophageal reflux disease 03/23/2012 Assessment & Plan (11/16/2024 5:37 AM EDT): - Following with [facility], recommended to take pantoprazole and famotidine - Patient states that she has been taking pantoprazole only Irritable bowel syndrome 03/23/2012 Assessment & Plan (11/16/2024 5:36 AM EDT): - Following with [facility], last seen on 11/01/2024 - Continue [...] EXTERNAL DATA DEPARTMENT Provider, Generic External Data 12/11/2024 2:00 PM EDT Office Visit [facility] [address] [place] [phone] Andrés Jones MD Abscess or cellulitis of toe, right (Primary Dx); Maljamar of toe 12/11/2024 Travel 11/17/2024 Orders Only [facility] External Provider, [facility] 11/16/2024 Orders Only [facility] [address] [place] [phone] Juany Hicks MD Iron deficiency anemia, unspecified iron deficiency anemia type (Primary Dx) 11/06/2024 Patient Outreach [address] [address] Juany Hicks MD Care Coordination (C3CM- chart review) 11/06/2024 Patient Outreach [address] [address] Juany Hicks MD 11/02/2024 9:00 AM EDT Office Visit [address] [address] Juany Hicks MD Routine general medical examination [...] stress 11/02/2024 Travel 11/01/2024 Telephone [facility] [address] [place] [address] [phone] Juany Hicks MD CHART PREP from Last [...] 1:45 PM EDT Office Visit [facility] [address] [place] [address] Juany Hicks MD [address] [place] [address] Health Maintenance Due Date Last Done Comments CT Colonography 1975 FIT DNA/Cologuard 1975 FIT 1975 FOBT 1975 SDOH Screening 1975 Sigmoidoscopy 1975 Family Planning (PISQ) 02/05/1991 Hepatitis B Vaccines (2 of 3 - 19+ 3-dose series) 11/30/2024 11/02/2024 COVID-19 Vaccine (3 - 2024- season) 2025 06/04/2021, 05/07/2021 Influenza Vaccine (#1) 2025 2, 06/04/2021, 03/22/2020, Additional history exists Depression Monitoring [...] Blood Count 5.9 4.8 - 10.8 X10*3/uL [facility] Red Blood Count 3.98(L) 4.20 - 5.50 X10*6/uL [facility] Hemoglobin 12.2 12.0 - 16.0 g/dl [facility] Hematocrit 36.8(L) 37.0 - 47.0 % [facility] Mean Corpuscular Volume 92.5 80.0 - 98.0 fL [facility] Mean Corpuscular Hemoglobin 30.7 27.0 - 33.0 pg [facility] Mean Corpuscular HGB Conc 33.2 31.0 - 35.0 g/dl [facility] Red Cell Distribution Width 16.6(H) 11.0 - 16.0 % [facility] Platelet Count 247 160 - 400 X10*3/uL [facility] Mean Platelet Volume 11.0 9.4 - 12.3 fL [facility] Neutrophils Percent Auto 54.7 45 - 73 % [facility] Imm Gran Pct Auto 0.3 0.0 - 0.4 % [facility] Lymphocytes Percent Auto 34.2 20 - 40 % [facility] Monocytes Percent Auto 8.9 2 - 11 % [facility] Eosinophils Percent Auto 1.2 0 - 4 % [facility] Basophils Percent Auto 0.7 0 - 2 % [facility] NRBC Pct Auto 0.0 0.0 - 0.2 /100WBC [facility] Neutrophils Absolute Auto 3.3 2.0 - 8.3 x10*3/uL [facility] Imm Gran Abs Auto 0.02 0.00 - 0.03 X10*3/uL [facility] Lymphocytes Absolute Auto 2.0 1.2 - 4.9 X10*3/uL [facility] Monocytes Absolute Auto 0.5 0.1 - 1.2 X10*3/uL [facility] Eosinophils Absolute Auto 0.1 0.0 - 0.4 X10*3/uL [facility] Basophils Absolute Auto 0.0 0.0 - 0.2 X10*3/uL [facility] NRBC Abs Auto 0.000 0.0 - 0.012 X10*3/uL [facility] 12/13/2024 2:40 PM EDT 12/13/2024 2:40 PM EDT us Generic External Data Provider LAB BLOOD ORDERAB LES Final Result Performing Organization Address [facility]/ZIP Co de Phone Number [facility] [address] [place] [address] [phone] * Ferritin (12/13/2024 2:40 PM EDT) Only the most recent of2 resultswithin the time period is included. Ferritin 32 10 - 250 ng/mL [facility] 12/13/2024 2:40 PM EDT 12/13/2024 2:40 PM EDT us Generic External Data Provider LAB BLOOD ORDERAB LES Final Result Performing Organization Address [facility]/ZIP Co de Phone Number [facility] [address] [place] [address] [phone] * US Abdomen Complete (11/17/2024 2:08 PM EDT) Anatomical Region Laterality Modality Abdomen Ultrasound 11/17/2024 2:08 PM EDT Narrative 11/17/2024 2:09 PM EDT [address] [address] Ultrasound Report Signed Patient: Lucas Brown MR#: [id number] 268 : 1975 Acct:[id number] Age/Sex: 49 / F ADM Date: 11/17/24 Loc: HO.US Attending Dr: Fanta GANDHI Ordering Physician: Fanta Osuna Date of Service: 11/17/24 Procedure(s): US abdomen complete Accession Number(s): [id number] cc: Fanta Osuna; Juany Hicks MD CLINICAL [...] 11/17/24 1409 DD/ 1408 TD/TT: 11/17/24 1408 Rehabilitation Caseworker: Procedure Note Donotuseinterpreter, Image - 11/17/[address] [address] Ultrasound Report Signed Patient: Kellen Brown#: [id number] 268 : 1975Acct:[id number] Age/Sex: 49 / FADM Date: 11/17/24 Loc: HO.US Attending Dr: Fanta GANDHI Ordering Physician: Fanta Osuna Date of Service: 11/17/24 Procedure(s): US abdomen complete Accession Number(s): [id number] cc: Fanta Osuna; Juany Hicks MD CLINICAL [...] 11/17/24 1409 DD/ 1408 TD/TT: 11/17/24 1408 Rehabilitation Caseworker: [facility] External Provider IMG US PROCEDURES Final Result * BI Mammogram Screening Tomosynthesis Bilateral (11/16/2024 3:16 PM EDT) Anatomical Region Laterality Modality Breast Bilateral Mammography 11/16/2024 3:16 PM EDT Narrative 11/27/2024 10:19 AM EDT [address] [place], [place] [address] Mammography Report Signed Patient: Lucas Brown MR#: [id number] 268 : 1975 Acct:[id number] Age/Sex: 49 / F ADM Date: 11/16/24 Loc: HO.MAMMO Attending Dr: Juany Hicks MD Ordering Physician: Juany Hicks MD Results: 1Negative Date of Service: 11/16/24 Follow Up: 1 Year From [facility] ina Mammogram Procedure(s): MM tomosynthesis screening BI Accession Number(s): [id number] cc: Juany Hicks MD EXAMINATION: MM SCREENING [...] 11/27/24 1016 DD/ 1516 TD/TT: 11/16/24 1535 Rehabilitation Caseworker: Procedure Note Donotuseinterpreter, Image - [facility] [address] [place] [address] Mammography Report Signed Patient: Kellen Brown#: [id number] 268 : 1975Acct:[id number] Age/Sex: 49 / FADM Date: 11/16/24 Loc: HO.MAMMO Attending Dr: Juany Hicks MD Ordering Physician: Juany Hicks MDResults: 1Negative Date of Service: 11/16/24Follow Up: 1 Year From Orig ina Mammogram Procedure(s): MM tomosynthesis screening BI Accession Number(s): [id number] cc: Juany Hicks MD EXAMINATION: MM SCREENING [...] 11/27/24 1016 DD/ 1516 TD/TT: 11/16/24 1535 Rehabilitation Caseworker: Juany Hicks MD IMG BI PROCEDURES Final Result * (ABNORMAL) Vitamin D, 25-Hydroxy, Total, Immunoassay (11/02/2024 10:22 AM EDT) Vitamin D 25-OH Total 27.1(L) >30 ng/mL [facility] Comment: Health Based Reference Values*< 20 ng/mL Sbnknnuep54-30 ng/mL Insufficient> 30 ng/mL Sufficient*Artie RIVERA. N [...] MD LAB BLOOD ORDERABLES Final Resul t [facility] [address] [place] [address] [phone] * Vitamin B12 (Cobalamin) and Folate Panel, Serum (11/02/2024 10:22 AM EDT) Vitamin B12 524 200 - 900 pg/mL [facility] Comment:NORMAL 200-900 PG/ML INDETERMINATE 160-199 PG/ML DEFICIENT < 160 PG/ML Folate 8.0 > or = 4.0 ng/mL [facility] Comment:Reference Values:> o r = [...] Resul t Performing Organization Address [facility] Co de Phone Number [facility] [address] [place] [address] [phone] * (ABNORMAL) Lipid Panel with Reflex to Direct LDL (11/02/2024 10:22 AM EDT) Triglycerides 80 <150 mg/dL [facility] Comment:Desirable Triglyceri de: less than 150 mg/dLBorderline High Triglyceride 150-199 mg/dLHigh Triglyceride: 200-499 mg/dLVery High Triglyceride: greater than or equal to 5OO mg/dL Cholesterol 231(H) <200 mg/dL [facility] Comment:Desirable Cholestero l: less than 200 mg/dLBorderline High Cholesterol: 200-239 mg/dLHigh Cholesterol: greater than 239 mg/dL LDL Cholesterol Calculated 147(H) <100 mg/dL [facility] Comment:Desirable LDL: less than 100 mg/dLNear Optimal/Above Optimal LDL: 110- 129 mg/dLBorderline High LDL: 130-159 mg/dLHigh LDL: 160-189 mg/dLVery High LDL: greater than or equal to 190 mg/dL HDL Cholesterol 68 >40 mg/dL [facility] Comment:Desirable HDL: great er than 40 mg/dL Note: This HDL assay may give artificially low results in patients with liver disease. Blood 11/02/2024 10:2 2 AM EDT 11/02/2024 11:02 AM EDT us Juany Hicks MD LAB BLOOD ORDERABLES Final Resul t Performing Organization Address City/[facility]/ZIP Co de Phone Number [facility] [address] [place] [address] [phone] * (ABNORMAL) Iron And Total Iron Binding Capacity (11/02/2024 10:22 AM EDT) Iron 47 30 - 160 mcg/dL [facility] Total Iron Binding Capacity 335 228 - 428 mcg/dL [facility] Percent Iron Saturation 14(L) 15 - 50 % [facility] Unsaturated Iron Binding 288 ug/dL [facility] Blood Venous blood specimen / Unknown 11/02/2024 10:22 AM EDT 11/02/2024 11:02 AM EDT us Laura Durant SLURRY MAN LAB BLOOD ORDERABLES Final Resul t Performing Organization Address [facility]/ZIP Co de Phone Number [facility] [address] [place] [phone] * Urinalysis w/reflex microscopic (11/02/2024 10:22 AM EDT) Color Urine Yellow [facility] Appearance Urine Clear [facility] PH 6.0 5.0 - 9.0 [facility] Glucose Urine UA Negative Negative mg/dL [facility] Urine Blood Negative Negative [facility] Specific [place] - Urine 1.010 1.005 - 1.025 [facility] Urine Protein Negative Neg-Trace mg/dL [facility] Urine Ketones Negative Negative mg/dL [facility] Nitrite Urine Negative Negative [facility] Leukocyte Esterase Urine Negative Negative [facility] 11/02/2024 10:2 2 AM EDT 11/02/2024 10:56 AM EDT Narrative [facility] - 11/02/2024 11:16 AM EDT Urine, Clean Catch us Generic External Data Provider LAB URINE ORDERAB LES Final Result Performing Organization Address [facility]/ZIP Co de Phone Number [facility] [address] [place] [phone] * Hemoglobin A1c (11/02/2024 10:22 AM EDT) Hemoglobin A1c 5.0 <6.0 % [facility] Comment:Hemoglobin A1C Refer ence Range Adults: 4.8 - 6.0 % Non diabetic: < 6.0 % Goal: < 7.0 %Additional Action Suggested: > 8.0 %Note: Hemoglobin A1c results are invalid for patients with abnormal amounts of HbF. Blood transfusions may impact the HbA1c concentration in the patient sample. Estimated Average Glucose 97 mg/dL [facility] Comment:eAG = Estimated ave rage glucose which is %A1C expressed asaverage glucose, using the formula of the R3T-UwxhaegScotshn Glucose study (ADAG), Diabetes Care, Vol.31,#8,Dec. 2007 Blood Venous blood specimen / Unknown 11/02/2024 10:22 AM EDT 11/02/2024 11:02 AM EDT us Juany Hicks MD LAB BLOOD ORDERABLES Final Resul t [facility] [address] [place] [phone] * TSH with Reflex to Free T4 (11/01/2024 4:27 PM EDT) [facility] TSH reflex Free T4 1.82 0.32 - 4.0 uIU/mL [facility] 11/01/2024 4:27 PM EDT 11/01/2024 4:28 PM EDT us Generic External Data Provider LAB BLOOD ORDERAB LES Final Result Performing Organization Address City/[facility]/ZIP Co de Phone Number [facility] [address] [place] [phone] * (ABNORMAL) Urinalysis, Complete, with Reflex to Culture (11/01/2024 4:23 PM EDT) Color Urine Yellow [facility] Appearance Urine Clear [facility] PH 6.5 5.0 - 9.0 [facility] Glucose Urine UA Negative Negative mg/dL [facility] Urine Blood Negative Negative [facility] Specific [place] - Urine 1.010 1.005 - 1.025 [facility] Urine Protein Negative Neg-Trace mg/dL [facility] Urine Ketones Negative Negative mg/dL [facility] Nitrite Urine Negative Negative [facility] Leukocyte Esterase Urine Trace(A) Negative [facility] RBC Urine 0-2 0 - 2 /HPF [facility] Urine WBC 6-10(A) 0 - 5 /HPF [facility] Urine Squamous Epithelial Cell 6-10 0 - 2 /HPF [facility] Urine Bacteria 1+ None Seen [facility] Hyaline Casts, Urine 0-2 0 - 2 /LPF [facility] 11/01/2024 4:23 PM EDT 11/01/2024 5:03 PM EDT Narrative [facility] - 11/01/2024 5:32 PM EDT [id number], Clean Catch us Generic External Data Provider LAB URINE ORDERAB LES Final Result Performing Organization Address [facility] Co de Phone Number [facility] [address] [place] [phone] * Culture, Urine, Routine (11/01/2024 12:00 AM EDT) Urine Urine specimen obtained by clean catch procedure / Unknown 11/01/2024 11/01/2024 Comment:UACC Narrative [facility] - 11/03/2024 11:45 AM EDT Urine Culture Report Result Urine Culture > 100,000 cfu/ml Urine Culture Mixed bacterial aster characteristic of Urine Culture urogenital contamination. Specimen Source: Urine clean catch Generic External Data Provider LAB MICROBIOLOGY - GENERAL ORDERABLES Final Result Performing Organization Address City/[facility]/ZIP Co de Phone Number [facility] [address] [place] [phone] * (ABNORMAL) Hm Colonoscopy (10/30/2022) Pathologist [facility] Colonoscopy Normal Normal Comment:tubular adenoma 10/30/2022 Coleman Juarez MD HEALTH MAINTENANCE Final Result * THINPREP PAP (09/18/2020 4:28 PM EDT) Pathologist [facility] Clinical Information: None given [facility] [...] along with historic and current clinical information. Steel Wool Machine Operator : SEE COMMENT [facility] Comment: MXD, CT (ASCP) CT screening location: [place] [address] Infection Shift in vaginal aster suggestive of bacterial vaginosis. [facility] Interpretation/R esult: Negative for intraepithelial lesion or malignancy. [facility] LMP: NONE GIVEN [...] Culp NP LAB PATHOLOGY ORDERABLES Final Result [facility] [address] * HPV GENOTYPES 16,18/45 (09/18/2020 4:28 PM EDT) Pathologist [facility] HPV 16 RNA NOT DETECTED NOT DETECTED [facility] HPV 18/45 RNA NOT DETECTED NOT DETECTED [facility] Comment: Methodology: Mechanical Systems Design Engineer Mediated Amplification The analytical performance characteristics of this assay have been determined by [employer]. The modifications have not been cleared or approved by the FDA. This assay has been validated pursuant to the CLIA regulations and is used for clinical purposes. 09/18/2020 4:28 PM EDT us Paulalucinda Culp SLURRY MAN LAB CYTOLOGY ORDERABLES Final R esult [facility] [address] [place] [address], * HEPATITIS C AB W/REFL TO HCV RNA, QN, PCR (12/20/2019 11:23 AM EDT) HEPATITIS C ANTIBODY NON-REACT DIAMOND NON-REACT DIAMOND [facility] INDEX 0.02 <1.00 [facility] Comment: HCV antibody was non-reactive. There is no laboratory evidence of HCV infection. In most cases, no further action is required. However, if recent HCV exposure is suspected, a test for HCV RNA (test code 94298) is suggested. For additional information please refer to http://Always [employer]/faq/NIO79a8 (This link is being provided for informational/ educational purposes only.) HEPATITIS C ANTIBODY NON-REACT DIAMOND NON-REACT DIAMOND [facility] INDEX 0.02 <1.00 [facility] Comment: HCV antibody was non-reactive. There is no laboratory evidence of HCV infection. In most cases, no further action is required. However, if recent HCV exposure is suspected, a test for HCV RNA (test code 40852) is suggested. For additional information please refer to http://[employer]/faq/MAO15y3 (This link is being provided for informational/ educational purposes only.) HEPATITIS C ANTIBODY NON-REACT DIAMOND NON-REACT DIAMOND [facility] INDEX 0.02 <1.00 [facility] Comment: HCV antibody was non-reactive. There is no laboratory evidence of HCV infection. In most cases, no further action is required. However, if recent HCV exposure is suspected, a test for HCV RNA (test code 55652) is suggested. For additional information please refer to http://[employer]agin[employer].avandeo/faq/SDE71l3 (This link is being provided for informational/ educational purposes only.) HEPATITIS C ANTIBODY NON-REACT DIAMOND NON-REACT DIAMOND [facility] INDEX 0.02 <1.00 [facility] Comment: HCV antibody was non-reactive. There is no laboratory evidence of HCV infection. In most cases, no further action is required. However, if recent HCV exposure is suspected, a test for HCV RNA (test code 38334) is suggested. For additional information please refer to http://[employer]agin[employer]andeo/faq/CYB06x7 (This link is being provided for informational/ educational purposes only.) 12/20/2019 11:2 3 AM EDT us Juany Hicks MD HISTORICAL/NON ORDERABLE LABS Fi nal Result [facility] [address] * HIV 1/2 ANTIGEN/ANTIBODY,FOURTH GENERATION W/RFL (12/20/2019 11:23 AM EDT) HIV-1/2 ANTIGEN AND ANTIBODIES, 4TH GENERATION W/ REFLEX NON-REACT DIAMOND NON-REACT DIAMOND [facility] Comment: HIV-1 antigen [...] purpose. For additional information please refer to http://[employer]/faq/CBD538 (This link is being provided for informational/ educational purposes only.) The performance of this assay has not been clinically validated in patients less than 2 years old. HIV-1/2 ANTIGEN AND ANTIBODIES, 4TH GENERATION W/ REFLEX NON-REACT DIAMOND NON-REACT DIAMOND [facility] Comment: HIV-1 antigen [...] purpose. For additional information please refer to http://Imagin[employer]andeo/faq/LMW943 (This link is being provided for informational/ educational purposes only.) The performance of this assay has not been clinically validated in patients less than 2 years old. HIV-1/2 ANTIGEN AND ANTIBODIES, 4TH GENERATION W/ REFLEX NON-REACT DIAMOND NON-REACT DIAMOND [facility] Comment: HIV-1 antigen and HIV-1/HIV-2 [...] purpose. For additional information please refer to http://Always Pre[employer]/faq/VUU064 (This link is being provided for informational/ educational purposes only.) The performance of this assay has not been clinically validated in patients less than 2 years old. HIV-1/2 ANTIGEN AND ANTIBODIES, 4TH GENERATION W/ REFLEX NON-REACT DIAMOND NON-REACT DIAMOND [facility] Comment: HIV-1 antigen and HIV-1/HIV-2 [...] purpose. For additional information please refer to http://Always [employer]/faq/KRE184 (This link is being provided for informational/ educational purposes only.) The performance of this assay has not been clinically validated in patients less than 2 years old. 12/20/2019 11:2 3 AM EDT us Juany Hicks MD LAB BLOOD ORDERABLES Final Resul t [facility] [address] from Last 3 Months or Most Recently Relevant to Health Maintenance Insurance [employer] Care Teams Shop Tech Relationship Specialty Start Date End Date Juany Hicks MD [address] [place] [phone] PCP - General Family Medicine 05/03/18 Mart De La Fuente, MARISABEL [address] [place] [address] Registered Nurse Family Medicine 11/06/24 Kylie Frey 11/06/[address] [place] [address] [address] [place] [address] Gastroenterology 11/17/24
--- OUTSIDE RECORDS SUMMARY | 2025-01-25 18:02 | XMS_ITS ---
Author Organization [employer] Address [address] [place] [address] Care Team Providers Care Dishwashing Machine Repairer Name Role Phone Juany Hicks MD Primary Care Provider [phone] Mart De La Fuente RN Unavailable [phone] Kylie Frey Unavailable Unavailable August Unavailable CM Complex Status:Identified (Enrolling) Start date:11/06/2024 Enrollment reason:ADT Feed Overview [facility]T-[facility] ED 11/03/24 Case Team Name Relationship Phone Mart De La Fuente RN(Responsible Staff) Registered Perla rai [phone] Continued Care and Services Coordination
== END 2025-01-25 15:37 | disposition home or self-care (01) ==
LOC: HO.HGI 13:28
PROVIDERS: PCP Family Medicine; Visit Provider Nurse Practitioner
DX: K64.9 Unspecified hemorrhoids (principal); D64.9 Anemia, unspecified
CPT/HCPCS: 99213

== ENCOUNTER → 2025-01-25 13:27 | Outpatient (BNVA) | payer MEDICAID, SELFPAY | PROVIDERS: PCP Family Medicine; Visit Provider Nurse Practitioner | DX: K21.9 Gastro-esophageal reflux disease without esophagitis (principal); D64.9 Anemia, unspecified; K64.9 Unspecified hemorrhoids | CPT/HCPCS: 99212 ==